=== PATIENT | female | born 1960 | race Caucasian/White ===

== ENCOUNTER 2017-09-13 14:59 | Inpatient (IN) | payer MEDICAID ==
[2017-09-13] VITALS (7 sets, daily range): BP systolic 106–154; BP diastolic 54–110
[~2017-09-13] VITALS: Ht 160 cm; Wt 127.6 kg
[~2017-09-13 14:59] MED LIST: ASPIRIN 81MG TA81 MG PO; ATORVASTATIN CA40 MG PO; DIGOX0.125 MG PO; ELIQUIS5 MG PO; METOPROLOL SUC100 M2 PO; TRAMADOL 50MG T50 MG PO; VERAPAMIL HCL180 M1 PO
--- OUTSIDE RECORDS SUMMARY | 2017-09-13 15:11 | External Medical Summary Rpt | CCD ---
Author Author , YUAN Organization [facility] Address Unknown Phone [email or web address] Care Team Providers Care Box Person Name Role Phone A Ilda CATHERINE MD [facility], Lucho Unavailable Unavailable Ilda CATHERINE MD PSC [employer] Unavailable Unavailable INC, [employer] Unavailable Unavailable INC, [employer] CHANCE, CHANCE Unavailable Unavailable LAUREN ORLIN, Unavailable Unavailable LAUREN ORLIN SANCHEZ ALL, SANCHEZ ALL Unavailable Unavailable PRABHAKAR BIRDIE, PRABHAKAR Unavailable Unavailable BIRDIE [facility] Unavailable Unavailable SERVICE, [facility] Unavailable Unavailable SERVICE, [facility] Unavailable Unavailable REHABILITATION, [facility] JOSE GUADALUPE CLEO, JOSE GUADALUPE Unavailable Unavailable CLEO ROLLY, ROLLY Unavailable Unavailable BROWNLEE NAN, BROWNLEE Unavailable Unavailable NAN LICHA, LICHA Unavailable Unavailable [facility] Un[facility] Un[facility], [facility] Unavailable Unavailable [facility], [facility], Unavailable Unavailable [facility] KOTTER MONA, KOTTER Unavailable Unavailable MONA [facility], [facility] Unavailable Unavailable [facility] JUNI JR, Unavailable Unavailable JUNI JR DAR KRI, DAR KRI Unavailable Unavailable MORENO SELAM, MORENO Unavailable Unavailable SELAM RUIZ JAM, Unavailable Unavailable RUIZ JAM CLEAN[employer]TY, Unavailable Unavailable [facility] REDD JUS, Unavailable Unavailable REDD JUS IVANA, IVANA Unavailable Unavailable NICKELS DENISE, NICKELS Unavailable Unavailable DENISE JENNIFER ORLIN, JENNIFER ORLIN Unavailable Unavailable [facility], Unavailable [facility]available [facility], [facility], Unavailable Unavailable [facility], Unavailable Unavailable [facility] ANGELIKA FERNANDO, ANGELIKA Unavailable Unavailable FERNANDO RAISLEY MARIAA, RAISLEY Unavailable Unavailable MARIAA FADI HÉCTOR, Unavailable Unavailable FADI ANAYA CHURCHILL ELODIA, CHURCHILL ELODIA Unavailable Unavailable KILO JACOBO, KILO Unavailable Unavailable JACOBO SOTINGEADWAIN HÉCTOR, Unavailable Unavailable SOTINGEANU HÉCTOR DELVIN MYRA, DELVIN Unavailable Unavailable MYRA STILES NAN, STILES Unavailable Unavailable NAN ELMO BERENICE, ELMO Unavailable Unavailable [facility] Unavailable Unavailable ASSIST, [facility], [facility]available Unavailable [facility] Unavailable [facility]available [facility] EUN NATHAN, EUN Unavailable Unavailable NATHAN [facility] Unavailable Unavailable [facility]ENC[facility], [facility] YOBANI BIRDIE, YOBANI Unavailable Unavailable BIRDIE JR BEAR CATHERINE, Unavailable Unavailable JR BEAR CATHERINEYA MAR, Unavailable Unavailable ZAVAZQUEZKAYA MAR Purpose Continuity of Care Document - 03-03-2015 through 2016 Problems Code Diagnosis DOS Provider Status [id number] UNILATERAL 04-20-2017 [facility] TIS RIGHT HIP [id number] UNS FX 04-20-2017 [place] [facility] SHAFT RT SERV [facility] SUBSQT ENC CLOS FX RTN [id number] UNS FX 04-20-2017 [facility] SUBSQT CLOS FX RTN HEAL I472 VENTRICULAR 04-09-2017 A Ilda CATHERINE MD PSC TACHYCARDIA I482 CHRONIC 04-09-2017 A Ilda CATHERINE ATRIAL PSC FIBRILLATIO N I4892 UNSPECIFIED 04-09-2017 A Ilda CATHERINE ATRIAL PSC FLUTTER I509 HEART 04-09-2017 A Ilda CATHERINE FAILURE PSC UNSPECIFIED E039 HYPOTHYROID 04-08-2017 [facility] UNSPECIFIED INC I110 HYPERTENSIV 04-08-2017 [facility], DISEASE PLLC WITH HEART FAILURE I5043 ACUTE ON 04-08-2017 [facility], COMB PLLC SYSTOLIC & DIASTOLIC CHF R0600 DYSPNEA 04-08-2017 [place] [facility] R0602 SHORTNESS 04-08-2017 [place] OF [facility]ATH [facility] J90 PLEURAL 10-27-2016 [place] [facility] EFFUSION SERV NOT FOUNDATION ELSEWHERE CLASSIFIED M151 HEBERDENS 10-27-2016 [place] [facility] NODES WITH SERV ARTHROPATHY FOUNDATION M159 POLYOSTEOAR 10-27-2016 [place] [facility] THRITIS SERV UNSPECIFIED FOUNDATION M6530 TRIGGER 10-27-2016 [place] [facility] FINGER SERV UNSPECIFIED FOUNDATION FINGER R768 OTH SPEC 10-27-2016 [place] [facility] ABNORMAL SERV IMMUNOLOGIC FOUNDATION AL FIND IN SERUM [id number] OTH FX 09-01-2016 [facility] FEMUR SUBSQT ENC CLOS FX RTN Z4789 ENCOUNTER 09-01-2016 [place] [facility] FOR OTHER SERV ORTHOPEDIC FOUNDATION AFTERCARE Z8781 PERSONAL 09-01-2016 [place] [facility] HISTORY OF SERV HEALED FOUNDATION TRAUMATIC FRACTURE M1711 UNILATERAL 08-16-2016 PAT[facility] PRIMARY AIDS INC OSTEOARTHRI TIS RIGHT KNEE [id number] OTH PHYSEAL 08-16-2016 PATIENT FX LOWER AIDS INC RT FEMUR INIT ENC CLOS FX [id number] OTH PHYSEAL 08-16-2016 PATIENT FX LOWER AIDS INC RT FEMUR SUBSQT FX RTN HEAL Z9181 HISTORY OF 08-16-2016 PATIENT FALLING AIDS INC M160 BILATERAL 07-28-2016 [facility] TIS OF HIP M170 BILATERAL 07-28-2016 [place] [facility] TIS OF KNEE J85178 PRIMARY 07-28-2016 [place] [facility] OSTEO[facility]TH[facility] SERV TIS RIGHT FOUNDATION HAND D56320 PRIMARY 07-28-2016 [place] [facility]STEO[facility] SERV TIS LEFT FOUNDATION HAND Z47370 PRIMARY 07-28-2016 [facility] TIS RIGHT ANKLE AND FOOT B77859 PRIMARY 07-28-2016 [facility] TIS LEFT ANKLE AND FOOT Z0000 ENCOUNTER 07-28-2016 [facility] MED EXAM W/O ABNORMAL FIND [id number] DSPL SC FX 07-21-2016 [facility] W[facility] IC EXT [facility]OSPITAL LOW RT FEM SUBS CLOS RTN [id number] UNS FX RT 07-21-2016 [place] [facility] FEMUR SERV SUBSQT ENC FOUNDATION CLOS FX RTN HEAL [id number] OTH [facility] 07-21-2016 [facility] COMP OTH PHYSICIANS BONE DEVC ASSIST IMPL GRAFT INIT ENC G65209R UNS 07-02-2016 [place] [facility] FRACTURE SERV SHAFT LT FOUNDATION TIBIA INIT ENC CLOS FX [id number] OTHER 07-02-2016 [facility] SHAFT LT TIBIA INIT ENC CLOS FX I340 NONRHEUMATI 05-26-2016 [place] [facility] C MITRAL SERV VALVE FOUNDATION INSUFFICIEN CY I361 NONRHEUMATI 05-26-2016 [place] [facility] C TRICUSPID SERV VALVE FOUNDATION INSUFFICIEN CY I4891 UNSPECIFIED 05-26-2016 [place] [facility] ATRIAL SERV FIBRILLATIO FOUNDATION N I517 CARDIOMEGAL 05-26-2016 [place] [facility] Y SERV FOUNDATION I5189 OTHER 05-26-2016 [place] [facility] ILL-DEFINED SERV HEART FOUNDATION DISEASES R001 BRADYCARDIA 05-26-2016 [facility] UNSPECIFIED FOUNDATION R9431 ABNORMAL 05-26-2016 [place] [facility] ELECTROCARD SERV IOGRAM F[facility] I5021 ACUTE 05-25-2016 [place] [facility] SYSTOLIC SERV CONGESTIVE FOUNDATION HEART FAILURE [id number] FX UNS PART 05-25-2016 [place] [facility] NECK UNS SERV FEMUR FOUNDATION INITIAL ENC CLOS FX S50015Z CONTUSION 05-23-2016 [place] [facility]ICAL OF LUNG SERV UNSPECIFIED FOUNDATION INITIAL ENCOUNTER J811 CHRONIC 05-22-2016 [place] [facility] PULMONARY SERV EDEMA FOUNDATION R0902 HYPOXEMIA 05-22-2016 [place] [facility] I288 OTHER 05-21-2016 [place] [facility] DISEASES OF SERV PULMONARY FOUNDATION VESSELS I348 OTHER 05-21-2016 [place] [facility] NONRHEUMATI SERV C MITRAL FOUNDATION VALVE DISORDERS I371 NONRHEUMATI 05-21-2016 [place] [facility] C PULMONARY SERV VALVE FOUNDATION INSUFFICIEN CY I501 LEFT 05-21-2016 [place] [facility] VENTRICULAR SERV FAILURE FOUNDATION UNSPECIFIED J984 OTHER 05-21-2016 [place] [facility] DISORDERS SERV OF LUNG FOUNDATION R600 LOCALIZED 05-21-2016 [place] [facility] EDEMA SERV FOUNDATION I480 PAROXYSMAL 05-20-2016 [place] [facility] ATRIAL SERV FIBRILLATIO FOUNDATION N I5020 UNSPECIFIED 05-20-2016 [place] [facility] SYSTOLIC SERV CONGESTIVE FOUNDATION HEART FAILURE J9601 ACUTE 05-20-2016 [place] [facility] RESPIRATORY SERV FAILURE FOUNDATION WITH HYPOXIA J9811 ATELECTASIS 05-20-2016 [place] [facility] R5381 OTHER 05-20-2016 [place] [facility] MALAISE SERV FOUNDATION R846 ABN 05-20-2016 [facility] FIND IN HOSPI SPEC RESP ORGN & THOR R918 OTHER 05-20-2016 [place] [facility] NONSPECIFIC SERV ABNORMAL FOUNDATION FINDING OF LUNG FIELD M6281 MUSCLE 05-14-2016 [facility] GENERALIZED AGENCY R2689 OTHER 05-14-2016 [facility] ABNORMALITI HEALTH ES OF GAIT AGENCY AND MOBILITY H84014B UNSPECIFIED 05-14-2016 [facility] FRACTURE HEALTH LOWER END AGENCY RT FEMUR SEQUELA D649 ANEMIA 03-15-2016 [place] [facility] UNSPECIFIED SERV FOUNDATION I10 ESSENTIAL 03-15-2016 [place] [facility] PRIMARY SERV HYPERTENSIO FOUNDATION N Z61762 HEMIPLEGIA 03-15-2016 [place] [facility] FLW SERV CEREBRAL FOUNDATION INFARCT AFF LT NON-DOM R252 CRAMP AND 03-15-2016 [place] [facility] SPASM SERV FOUNDATION A499 BACTERIAL 03-13-2016 [place] [facility] INFECTION SERV UNSPECIFIED FOUNDATION G8918 OTHER ACUTE 03-13-2016 [place] [facility] SERV POSTPROCEDU FOUNDATION RAL PAIN N390 URINARY 03-13-2016 [place] [facility] TRACT SERV INFECTION FOUNDATION SITE NOT SPECIFIED E6601 MORBID 03-05-2016 [facility] OBES[facility] DUE REHABILITAT TO EXCESS ION CALORIES G479 SLEEP 03-05-2016 [facility] UNSPECIFIED REHABILITAT ION K5900 CONSTIPATIO 03-05-2016 [facility] [place] UNSPECIFIED REHABILITAT ION Z6842 BODY MASS 03-05-2016 [facility] INDEX BMI GRANTS 45.0-49.9 REHABILITAT ADULT ION M1990 UNSPECIFIED 03-02-2016 [facility] OSTEOARTHRI TIS UNSPECIFIED SITE [id number] DSPL SC FX 03-02-2016 [place] [facility] WITH IC EXT SERVICES LOW RT FEMUR INIT CLOS FX Z9889 OTHER 03-02-2016 [place] [facility] SPECIFIED SERV POSTPROCEDU FOUNDATION RAL STATES M179 OSTEOARTHRI 03-01-2016 [facility] UNSPECIFIED M2500 HEMARTHROSI 03-01-2016 [place] [facility] S SERV UNSPECIFIED FOUNDATION JOINT Q43785 PAIN IN 03-01-2016 [place] [facility] G47407 OSTEOPHYTE 03-01-2016 [place] [facility] RIGHT HIP SERV FOUNDATION H99244 OSTEOPHYTE 03-01-2016 [place] [facility] RIGHT KNEE SERV FOUNDATION [id number] UNS FX 03-01-2016 [place] [facility] SHAFT RT SERV FEM[facility] FOUNDATION INITIAL ENC CLOS FRACTURE G52340I DSPL TRNS 03-01-2016 [facility] SHAFT RT TECHNOLOGIE FEMUR S INC INITIAL ENC CLOS FX [id number] UNS FX 03-01-2016 [place] [facility] LOWER RT SERV F[facility] FOUNDATION INITIAL ENC CLOS FRACTURE L06909U OTH FX 03-01-2016 [facility] LOWER RT PHYSICIANS, FEMUR PLLC INITIAL ENC CLOS FX [id number] UNS 03-01-2016 [place] [facility] FRACTURE SERV UNS FEMUR FOUNDATION INITIAL ENC CLOS FX [id number] OTHER FALL 03-01-2016 [place] [facility] ON SAME SERV LEVEL FOUNDATION INITIAL ENCOUNTER R23BNXP UNSPECIFIED 03-01-2016 [facility] INITIAL SERVICE ENCOUNTER A06075 ENCOUNTER 03-01-2016 [place] [facility] FOR OTHER SERV PREPROCEDUR FOUNDATION AL EXAMINATION Z4689 ENCOUNTER 03-01-2016 [place] [facility] FITTING & SERV ADJUSTMENT FOUNDATION OT SPEC DEVICES 4019 UNSPECIFIED 03-03-2015 [facility] [place] [address] UNSPECIFIED 03-03-2015 [facility] CARIES INC 5225 PERIAPICAL 03-03-2015 [facility] WITHOUT INC SINUS Medications Na ND Rx Da Fi Fi Am Da Di Ph RX Ph St me C No te ll ll ou ys ag ar # ys at rm s nt no ma ic us Or Da si cy ia de te s n re d EL 00 09 10 30 30 00 RI Ac IQ 00 -2 -2 .0 00 TE ti UI 30 5- 0- 00 01 ve S 89 20 20 20 AI 5 42 17 17 08 D MG 1 50 PH AR TA MA BL CY ET #3 93 8 VE 68 08 09 60 30 00 RI Ac RA 46 -2 -2 .0 00 TE ti PA 20 8- 2- 00 01 ve OR 29 20 20 19 AI L 30 17 17 36 D ER 1 22 PH AR 18 MA 0 CY MG #3 TA 93 BL 8 ET DI 00 08 09 30 30 00 RI Ac GI 37 -2 -2 .0 00 TE ti TE 86 8- 2- 00 01 ve K 15 20 20 19 AI 12 50 17 17 35 D 5 1 31 PH MC AR G MA TA CY BL ET #3 93 8 ME 62 08 09 30 30 00 RI Ac TO 03 -2 -2 .0 00 TE ti TX 70 8- 2- 00 01 ve OL 83 20 20 17 AI OL 20 17 17 25 D 1 05 PH FORD AR CC MA CY ER #3 10 93 0 8 MG TA B EL 00 08 09 30 30 00 RI Ac IQ 00 -2 -1 .0 00 TE ti UI 30 1- 5- 00 01 ve S 89 20 20 17 AI 5 42 17 17 25 D MG 1 06 PH AR TA MA BL CY ET #3 93 8 EL 00 07 08 30 30 00 RI Ac IQ 00 -2 -1 .0 00 TE ti UI 30 2- 8- 00 01 ve S 89 20 20 17 AI 5 42 17 17 25 D MG 1 06 PH AR TA MA BL CY ET #3 93 8 ME 62 07 08 30 30 00 RI Ac TO 03 -2 -1 .0 00 TE ti TX 70 8- 8- 00 01 ve OL 83 20 20 17 AI OL 20 17 17 25 D 1 05 PH FORD AR CC MA CY ER #3 10 93 0 8 MG TA B DI 00 07 08 30 30 00 RI Ac GI 37 -2 -1 .0 00 TE ti TE 86 8- 8- 00 01 ve K 15 20 20 19 AI 12 50 17 17 35 D 5 1 31 PH MC AR G MA TA CY BL ET #3 93 8 VE 68 07 08 60 30 00 RI Ac RA 46 -2 -1 .0 00 TE ti PA 20 8- 8- 00 01 ve OR 29 20 20 19 AI L 30 17 17 36 D ER 1 22 PH AR 18 MA 0 CY MG #3 TA 93 BL 8 ET DI 00 06 07 30 30 00 RI Ac GI 37 -2 -2 .0 00 TE ti TE 86 8- 1- 00 01 ve K 15 20 20 18 AI 12 50 17 17 57 D 5 1 55 PH MC AR G MA TA CY BL ET #3 93 8 ME 62 06 07 30 30 00 RI Ac TO 03 -2 -2 .0 00 TE ti TX 70 8- 1- 00 01 ve OL 83 20 20 17 AI OL 20 17 17 25 D 1 05 PH FORD AR CC MA CY ER #3 10 93 0 8 MG TA B VE 68 06 07 60 30 00 RI Ac RA 46 -2 -2 .0 00 TE ti PA 20 8- 1- 00 01 ve OR 29 20 20 18 AI L 30 17 17 99 D ER 1 39 PH AR 18 MA 0 CY MG #3 TA 93 BL 8 ET EL 00 06 07 30 30 00 RI Ac IQ 00 -2 -1 .0 00 TE ti UI 30 1- 4- 00 01 ve S 89 20 20 17 AI 5 42 17 17 25 D MG 1 06 PH AR TA MA BL CY ET #3 93 8 VE 68 05 06 60 30 00 RI Ac RA 46 -2 -2 .0 00 TE ti PA 20 9- 3- 00 01 ve OR 29 20 20 18 AI L 30 17 17 59 D ER 1 30 PH AR 18 MA 0 CY MG #3 TA 93 BL 8 ET DI 00 05 06 30 30 00 RI Ac GI 37 -2 -2 .0 00 TE ti TE 86 9- 3- 00 01 ve K 15 20 20 18 AI 12 50 17 17 57 D 5 1 55 PH MC AR G MA TA CY BL ET #3 93 8 ME 62 02 03 30 30 00 RI Ac TO 03 -2 -1 .0 00 TE ti TX 70 3- 7- 00 01 ve OL 83 20 20 17 AI OL 20 17 17 25 D 1 05 PH FORD AR CC MA CY ER #3 10 93 0 8 MG TA B EL 00 02 03 30 30 00 RI Ac IQ 00 -2 -1 .0 00 TE ti UI 30 3- 7- 00 01 ve S 89 20 20 17 AI 5 42 17 17 25 D MG 1 06 PH AR TA MA BL CY ET #3 93 8 AT 60 02 03 30 30 00 RI Ac OR 50 -1 -1 .0 00 TE ti VA 52 2- 0- [address] 58 20 20 14 AI AT 00 17 17 41 D IN 9 19 PH AR 40 MA CY MG #3 TA 93 BL 8 ET AT 60 01 02 30 30 00 RI Ac OR 50 -1 -0 .0 00 TE ti VA 52 2- 3- [address] 58 20 20 14 AI AT 00 17 17 41 D IN 9 19 PH AR 40 MA CY MG #3 TA 93 BL 8 ET ME 62 01 02 30 30 00 RI Ac TO 03 -1 -0 .0 00 TE ti TX 70 2- 3- 00 01 ve OL 83 20 20 14 AI OL 20 17 17 87 D 1 69 PH FORD AR CC MA CY ER #3 10 93 0 8 MG TA B EL 00 01 02 30 30 00 RI Ac IQ 00 -1 -0 .0 00 TE ti UI 30 3- 3- 00 01 ve S 89 20 20 14 AI 5 42 17 17 87 D MG 1 66 PH AR TA MA BL CY ET #3 93 8 ME 62 12 01 30 30 00 RI Ac TO 03 -1 -0 .0 00 TE ti TX 70 3- 9- 00 01 ve OL 83 20 20 14 AI OL 20 16 17 87 D 1 69 PH FORD AR CC MA CY ER #3 10 93 0 8 MG TA B AT 60 12 01 30 30 00 RI Ac OR 50 -1 -0 .0 00 TE ti VA 52 3- 9- [address] 58 20 20 14 AI AT 00 16 17 41 D IN 9 19 PH AR 40 MA CY MG #3 TA 93 BL 8 ET EL 00 12 01 30 30 00 RI Ac IQ 00 -1 -0 .0 00 TE ti UI 30 3- 9- 00 01 ve S 89 20 20 14 AI 5 42 16 17 87 D MG 1 66 PH AR TA MA BL CY ET #3 93 8 Results Labs Lab Lab Date Result Refere Interp Status Commen Order Detail nces retati t Range on Urinalysis dipstick W Reflex Microscopic panel in Urine (04-08-2017 20:30) Bacteri 1+ O complet a 017 ed [Presen 20:30 ce] in Urine sedimen t by Light microsc opy Erythro --2 5-10 0 complet cytes 017 ed [Presen 20:30 ce] in Urine sedimen t by Light microsc opy Epithel --2 3-5 0#/hp complet ial 017 f - ed cells.s 20:30 5#/hp quamous f [Presen ce] in Urine sedimen t by Microsc opy high power field Trichom 04-08-2 1+ NONE complet onas sp 017 ed 20:30 [Presen ce] in Urine by Light microsc opy Leukocy 04-08-2 3-5 O complet jayesh 017 wbc/hpf ed [#/volu 20:30 me] in Urine Urinalysis dipstick W Reflex Microscopic panel in Urine (04-08-2017 20:30) Appeara 04-08-2 CLEAR CLEAR complet nce of 017 ed Urine 20:30 Bilirub 04-08-2 NEGATIV NEG complet in 017 E ed [Presen 20:30 ce] in Urine by Test strip Erythro 04-08-2 NEGATIV NEG complet cytes 017 E ed [Presen 20:30 ce] in Urine Color 04-08-2 YELLOW YELLOW complet of 017 ed Urine 20:30 Ketones 04-08-2 NEGATIV NEG complet 017 E ed [Presen 20:30 ce] in Urine by Automat ed test strip Mucus 04-08-2 2+ NEG Abnorma complet [Presen 017 l ed ce] in 20:30 Urine sedimen t by Light microsc opy Nitrite 04-08-2 NEGATIV NEG complet 017 E ed [Presen 20:30 ce] in Urine by Test strip Urobili 04-08-2 0.2 NEG complet nogen 017 ed [Presen 20:30 ce] in Urine by Test strip Procedures Procedure DOS Code Location Performer Comment RADIOLOGI 52603 LUZ Gonsales 7 MEDICAL EXAMINATI SERV ON FEMUR FOUNDATIO MINIMUM 2 N VIEWS SBSQ 90345 [facility] DORENE HOWARD CARE/DAY PSC 25 MINUTES INITIAL 08785 [facility] 7 DORENE HOWARD CARE/DAY PSC 70 MINUTES RADIOLOGI 71825 [place] ROLLY [facility] 7 MEDICAL EXAMINATI IMAGING ON CHEST ASS S[place] FRONTAL RADIOLOGI 32311 [facility] 6 Y Y EXAMINATI [facility] HOSPITAL ON FEMUR MINIMUM 2 VIEWS ELEVATING K0195 PATIENT PATIENT LEGREST 6 AIDS INC AIDS INC PAIR HIGH K0004 PATIENT PATIENT STRENGTH 6 AIDS INC AIDS INC LIGHTWE[place] HT WHEELCHAI R HEPATITIS 94058 [facility] C 6 Y Y ANTIBODY HOSPITAL HOSPITAL COLLECTIO 35445 [facility] N VENOUS 6 Y Y BLOOD [facility] VENIPUNCT URE RADEX 81157 [facility] HAND 2 6 Y Y VIEWS [facility] HEPATITIS 02618 [facility] B CORE 6 Y Y ANTIBODY [facility] [place] [address] [facility] HEPATITIS 6 Y Y B [facility] SURFACE ANTIGEN RADEX 02880 [facility] FOOT 6 Y Y COMPLETE [facility] MINIMUM 3 VIEWS RADEX 84549 [place] DELVIN WRIST 2 6 MEDICAL MYRA VIEWS SERV FOUNDATIO N ANTINUCLE 17548 [facility] 6 Y Y ANTIBODIE [facility] RADIOLOGI 82947 [place]TG[place] C 6 MEDICAL Y JUS EXAMINATI SERV ON FEMUR FOUNDATIO MINIMUM 2 N VIEWS ELEVATING K0195 PATIENT PATIENT LEGREST 6 AIDS INC AIDS INC PAIR HIGH K0004 PATIENT PATIENT STRENGTH 6 AIDS INC AIDS INC LIGHTWEIG HT WHEELCHAI R DUP-SCAN 75132 [place] LAUREN XTR VEINS 6 MEDICAL ORLIN COMPLETE SERV FOUNDATIO BILATERAL N STUDY RADIOLOGI 77782 [facility] EXAM 6 Y Y CHEST 2 HOSPITAL HOSPITAL VIEWS FRONTAL&L ATERAL LIGHTWEIG K0003 PATIENT PATIENT HT 6 AIDS INC AIDS INC WHEELCHAI R SERVICE G0151 [facility] HOME HOME THERAP [facility] HEALTH HOME AGENCY AGENCY HLTH/HOSP ICE EA 15 MIN SERVICE G0151 [facility] HEALTH HOME AGENCY AGENCY HLTH/HOSP ICE EA 15 MIN DIRECT G0299 [facility] RN 6 HOME HOME HOME HEALTH HEALTH HEALTH/HO AGENCY AGENCY SPICE SET EA 15 MIN SERVICE G0151 [facility] HE[facility] HOME AGENCY AGENCY HLTH/HOSP ICE EA 15 MIN SERVICE G0151 [facility] HOME [facility]AP [facility] HEALTH HOME AGENCY AGENCY HLTH/HOSP ICE EA 15 MIN SERVICE G0151 [facility] HOME [facility] HEALTH HOME AGENCY AGENCY HLTH/HOSP ICE EA 15 MIN DIRECT G0299 [facility] RN 6 HOME HOME HOME HEALTH HEALTH HEALTH/HO AGENCY AGENCY SPICE SET EA 15 MIN CARDIOVER 21966 [facility] AMIRA ANNA 6 MEDICAL [facility] ELECTIVE SERV ARRHYTHMI FOUNDATIO A N EXTERNAL ECHO 55901 [facility] AMIRA TRANSESOP 6 MEDICAL [facility] HAG R-T SERV 2D W/PRB FOUNDATIO IMG N ACQUISJ I&R DOP 97354 [place] AMIRA ECHOCARD 6 [facility] COLOR SERV FLOW FOUNDATIO VELOCITY N MAPPING DOPPLER 46506 [facility] ECHOCARD 6 MEDICAL [facility] PULSE SERV WAVE FOUNDATIO W/SPECTRA N L DISPLAY ECG 20763 [facility] ROUTINE 6 MEDICAL NAN ECG SERV W/LEAST FOUNDATIO 12 LDS N I&R ONLY SBSQ 64804 [place] [address] MEDICAL JACOBO CARE/DAY SERV [address] THORAX 24436 [place] PRABHAKAR W/O 6 MEDICAL [place] CONTRAST SERV MATERIAL FOUNDATIO N INITIAL 84559 [facility] INPATIENT 6 MEDICAL HORACIO CONSULT SERV NEW/ESTAB FOUNDATIO PT 55 N MIN SBSQ 64835 [place] [address] MEDICAL MONA CARE/DAY SERV 25 FOUNDATIO MINUTES N SBSQ 09819 [place] [address] MEDICAL SELAM CARE/DAY SERV 25 FOUNDATIO MINUTES N RADIOLOGI 14978 [place] [address] MEDICAL BIRDIE EXAMINATI SERV ON CHEST FOUNDATIO SING[place] FRONTAL RADIOLOGI 32038 [place] [address] MEDICAL BIRDIE EXAMINATI SERV ON CHEST FOUNDATIO SINGLE N VIEW FRONTAL SBSQ 55853 [facility] 6 MEDICAL MONA CARE/DAY SERV 25 FOUNDATIO MINUTES N ECHO 66085 LUZ CHUR[facility]ILL ELODIA TTHRC R-T 6 MEDICAL 2D SERV W/WOM-MOD FOUNDATIO E COMPL N SPEC&COLR D CYTP 30142 AYSHA APONTE SLCTV 6 Y OF HÉCTOR CELL [facility] INTERP[place] XCP[place] C/[place] L[place] [address] AYSHA APONTE SURG 6 Y OF HÉCTOR PATHOLOGY [place] [facility] [address] [place] NICKEL[place] ANGIOGRAP 6 MEDICAL DENISE HY CHEST SERV W/CONTRAS FOUNDATIO T/NONCONT N RAST ECG 41409 [place] ERINN CHI ROUTINE 6 MEDICAL ECG SERV W/LEAST FOUNDATIO 12 LDS N I&R ONLY RADIOLOGI 41137 [place] ZAGUROVSK C 6 MEDICAL AYA MAR EXAMINATI SERV ON CHEST FOUNDATIO SINGLE N [place]IEW FRONTAL RADIOLOGI 98362 [place] NICKELS C EXAM 6 MEDICAL DENISE CHEST 2 SERV VIEWS FOUNDATIO FRONTAL&L N ATERAL INITIAL 55026 [facility] 6 MEDICAL SELAM CARE/DAY SERV 50 FOUNDATIO MINUTES N SERVICE G0151 [facility] HOME HOME THERAP HEALTH HEALTH HOME AGENCY AGENCY HLTH/HOSP ICE EA 15 MIN LIGHTWEIG K0003 PATIENT PATIENT HT 6 AIDS INC AIDS INC WHEELCHAI R DIRECT G0299 [facility] RN 6 HOME HOME HOME HEALTH HEALTH HEALTH/HO AGENCY AGENCY SPICE SET EA 15 MIN SERVICE G0151 [facility] 6 HOME HOME [facility]ER[facility] HEALTH HOME AGENCY AGENCY HLTH/HOSP ICE EA 15 MIN SERVICE G0151 [facility] 6 HOME HOME THERAP HEALTH HEALTH HOME AGENCY AGENCY HLTH/HOSP ICE EA 15 MIN SERVICE G0151 [facility] 6 HOME HOME THERAP HEALTH HEALTH HOME AGENCY AGENCY HLTH/HOSP ICE EA 15 MIN SERVICE G0151 [facility] 6 HOME HOME THERAP HEALTH HEALTH HOME AGENCY AGENCY HLTH/HOSP ICE EA 15 MIN SERVICE G0151 [facility] 6 HOME HOME THERAP HEALTH HEALTH HOME AGENCY AGENCY HLTH/HOSP ICE EA 15 MIN SERVICE G0151 [facility] 6 HOME HOME THERAP HEALTH HEALTH HOME AGENCY AGENCY HLTH/HOSP ICE EA 15 MIN SERVICE G0151 [facility] HOME AGENCY AGENCY HLTH/HOSP ICE EA 15 MIN SERVICE G0151 [facility] HOME AGENCY AGENCY HLTH/HOSP ICE EA 15 MIN RADIOLOGI [id number] [place] JULIANNA C 6 MEDICAL Y JUS EXAMINATI SERV ON FEMUR FOUNDATIO MINIMUM 2 N VIEWS SERVICE G0151 [facility] HOME AGENCY AGENCY HLTH/HOSP ICE EA 15 MIN [place] K0003 PATIENT PATIENT HT 6 AIDS INC AIDS INC WHEELCHAI R SERVICE G0151 [facility] HOME AGENCY AGENCY HLTH/HOSP ICE EA 15 MIN SERV[facility] G0151 [facility] HOME AGENCY AGENCY HLTH/HOSP ICE EA 15 MIN SERVICE G0151 [facility] HOME AGENCY AGENCY HLTH/HOSP ICE EA 15 MIN SERVICE G0151 [facility] HOME AGENCY AGENCY HLTH/HOSP ICE EA 15 MIN SERVICE G0151 [facility] HOME AGENCY AGENCY HLTH/HOSP ICE EA 15 MIN SERVICE G0151 [facility] HOME AGENCY AGENCY HLTH/HOSP ICE EA 15 MIN DIRECT G0299 [facility] RN 6 HOME HOME [facility] HE[facility] HEALTH/HO AGENCY AGENCY SPICE SET EA 15 MIN HOSP[facility] [id number] [place] STILES DISCHARGE 6 MEDICAL NAN DAY SERV MANAGEMEN FOUNDATIO T 30 N MIN/< WALKER [id number] PATIENT PATIENT FOLDING 6 AIDS INC AIDS INC WHEELED ADJUSTABL E/FIXED HEIGHT GENERAL [id number] PATIENT PATIENT WHLCHAIR 6 AIDS INC AIDS INC SEAT CUSHN WIDTH < 22 IN DEPTH [place] K0003 PATIENT PATIENT HT 6 AIDS INC AIDS INC AMMY Urban WHLCHAIR [id number] PATIENT PATIENT ACSS PSTN 6 AIDS INC AIDS INC BELT/SFTY BELT/PELV STRAP EA SBSQ [id number] [place] [address] MEDICAL NAN CARE/DAY SERV 25 FOUNDATIO MINUTES N SBSQ [id number] [place] [address] MEDICAL NAN CARE/DAY SERV 25 FOUNDATIO MINUTES N SBSQ [id number] [place] [address] MEDICAL NAN CARE/DAY SERV 25 FOUNDATIO MINUTES N SBSQ [id number] [place] [address] MEDICAL NAN CARE/DAY SERV 25 FOUNDATIO MINUTES N SBSQ [id number] [place] [address] MEDICAL NAN CARE/DAY SERV 25 FOUNDATIO MINUTES N SBSQ [id number] [place] [address] MEDICAL NAN CARE/DAY SERV 25 FOUNDATIO MINUTES N SBSQ [id number] [place] [address] MEDICAL NAN CARE/DAY SERV 25 FOUNDATIO MINUTES N SBSQ 19690 [place] [address] MEDICAL PETTY CARE/DAY SERV 25 FOUNDATIO MINUTES N SBSQ 68138 [place] [address] MEDICAL PETTY CARE/DAY SERV 25 FOUNDATIO MINUTES N INITIAL [address]5639 [place] [address] MEDICAL PETTY CARE/DAY SERV 50 [place] [address] [place] CATHERINE, FEMORAL 6 MEDICAL JR RAY SUPRACOND SERV YLAR FOUNDATIO FRACTURE N W/XTN REPOSITIO [id number] UNIVERS UNIVERS N RT LOW 6 Y Y [facility] INTRAMED IF DEVICE OPEN ANESTHESI 53259 [place] JOSE GUADALUPE A OPEN 6 MEDICAL CLEO PROCEDURE SERVICES S LOWER 1/3 [facility] [address] [place] JENNIFER Gonsales 6 MEDICAL EXAMINATI SERV ON FEMUR FOUNDATIO MINIMUM 2 N VIEWS RADIOLOGI 57523 LUZ Gonsales 6 MEDICAL BERENICE EXAMINATI SERV ON FEMUR FOUNDATIO MINIMUM 2 N VIEWS INJECTION [id number] JOSE G ARAIZA 6 [facility] ONDANSETR INC INC ON HCL PER 1 MG ECG 71679 LUZ ERINN CHI ROUTINE 6 MEDICAL ECG SERV W/LEAST FOUNDATIO 12 LDS N I&R ONLY THERAPEUT 49362 JOSE G ARAIZA IC 6 [facility] INJECTION INC INC IV PUSH EACH NEW DRUG RADIOLOGI 43022 [place] SANCHEZ ALL C 6 MEDICAL EXAMINATI IMAGING ON KNEE ASS 1/2 VIEWS RADIOLOGI 36996 LUZ ELMO Gonsales 6 MEDICAL BERENICE EXAMINATI SERV ON KNEE [address] LOWER 01871 LUZ HAQ EXTREMITY 6 MEDICAL NATHAN W/O SERV CONTRAST FOUNDATIO MATERIAL N RADIOLOGI 51158 [place] SANCHEZ ALL C 6 MEDICAL EXAMINATI IMAGING ON CHEST ASS SINGLE VIEW FRONTAL THER 38584 JOSE G ARAIZA PROPH/DX 6 [facility] NJX IV INC INC PUSH SINGLE/1S T SBST/DRUG KNEE L1830 [facility] 6 TECHNOLOG TECHNOLOG IMMOBLIZE IES INC IES INC R CANVAS LONGTUDNL PREFAB GROUND A0425 [facility] PER SERVICE SERVICE STATUTE MILE AMBULANCE A0429 [facility] 6 AMBULANCE AMBULANCE BLS SERVICE SERVICE EMERGENCY TRANSPORT RADEX HIP 85729 LUZ ELMO 6 MEDICAL BERENICE UNILATERA SERV L WITH FOUNDATIO PELVIS N 2-3 VIEWS RADIOLOGI 75557 LUZ ELMO Gonsales 6 MEDICAL BERENICE EXAMINATI SERV ON TIBIA FOUNDATIO & FIBULA N 2 VIEWS THERAPEUT 78620 JOSE G ARAIZA IC 5 [facility] PROPHYLAC INC INC TIC/DX INJECTION SUBQ/IM Encounters Encounter Start End Date Code Location Performer Type Date OFFICE 61197 [facility] 7 7 [facility] T VISIT 5 E MINUTES [facility] - 7 [facility] OUTPATIEN E T [facility] - 7 7 [facility] INPATIENT INC EMERGENCY 78948 [facility] DEPT 7 7 PHYSICIAN VISIT S, PLLC HIGH SEVERITY& THREAT FUNCJ OFFICE 83056 [place] [facility] MEDICAL JR T VISIT SERV 25 FOUNDATIO MINUTES N OFFICE 35050 [facility] 6 6 Y T VISIT 5 HOSPITAL MINUTES OFFICE 77880 [place] [facility] MEDICAL JR RAY T VISIT SERV 15 FOUNDATIO MINUTES N HOSPITAL UNIVERSIT - 6 6 Y [facility] T OFFICE 09485 [place] DAR KRI CONSULTAT 6 6 MEDICAL ION SERV NEW/ESTAB FOUNDATIO PATIENT N 40 MIN [facility] - 6 6 Y [facility] 6 6 Y [facility] T OFFICE 23726 [facility] 6 6 [place] MRAIAA T VISIT PHYSICIAN 25 S ASSIST MINUTES OFFICE 45182 [facility] 6 6 Y T VISIT 5 [facility] UNIVERSIT - 6 6 Y [facility] T OFFICE 12731 [place] RUIZ [facility] 6 6 MEDICAL JAM T VISIT SERV 25 FOUNDATIO MINUTES N [facility] 6 6 Y [facility] 70156 [facility] T VISIT REHABILIT 10 ATION MINUTES OFFICE 63532 [place] [facility] 6 6 MEDICAL NAN T VISIT SERV 25 FOUNDATIO MINUTES N EMERGENCY 95461 [place] ANGELIK[place] DEPT 6 6 MEDICAL FERNANDO VISIT SERV HIGH FOUNDATIO SEVERITY& N THREAT FUN HOME [facility], 6 6 HOME INPATIENT HEALTH AGENCY [facility] UNIVERSIT - 6 6 Y [facility] T OFFICE 69725 [facility] 6 6 Y T [facility]ISIT 5 [facility], 6 6 HOME INPATIENT HEALTH AGENCY HOME [facility], 6 6 HOME INPATIENT HEALTH [facility] UNIVERSIT - 6 6 Y [facility] T OFFICE 92303 [facility] 6 6 Y T VISIT 5 [facility] - 6 6 [facility] EMERGENCY 41966 JOSE G DEPT 6 6 [facility] VISIT INC HIGH SEVERITY& THREAT [facility] UNIVERSIT - 6 6 Y INPATIENT HOSPITAL EMERGENCY 10696 ZOE SEVILLA 6 6 PHYSICIAN U HÉCTOR MOORE S, [facility] T VISIT MODERATE SEVERITY EMERGENCY 39974 JOSE G 5 5 [facility] DEPARTMEN INC T VISIT LOW/MODER SEVERITY HOSPITAL JOSE G - 5 5 [facility] OUTPATIEN INC T
--- OUTSIDE RECORDS SUMMARY | 2017-09-13 15:11 | External Medical Summary Rpt | CCD ---
Author Author , YUAN Organization [facility] Address Unknown Phone [email or web address] Care Team Providers Care Dish Stacker Name Role Phone A Ilda CATHERINE MD P[facility], Lucho Unavailable Unavailable Ilda CATHERINE MD PSC [employer] Unavailable Unavailable INC, [employer] Unavailable Unavailable INC, [employer] CHANCE, CHANCE Unavailable Unavailable LAUREN ORLIN, Unavailable Unavailable LAUREN ORLIN SANCHEZ ALL, SANCHEZ ALL Unavailable Unavailable PRABHAKAR BIRDIE, PRABHAKAR Unavailable Unavailable BIRDIE [facility] Unavailable Unavailable SERVICE, [facility] Unavailable Unavailable SERVICE[facility] Unavailable Unavailable REHABILITATION, [facility] JOSE GUADALUPE CLEO, JOSE GUADALUPE Unavailable Unavailable CLEO ROLLY, ROLLY Unavailable Unavailable BROWNLEE NAN, BROWNLEE Unavailable Unavailable NAN LICHA, LICHA Unavailable Unavailable [facility], [facility] Unavailable Unavailable IMAGING [facility], [facility], Unavailable Unavailable [facility] KOTTER MONA, KOTTER Unavailable Unavailable MONA [facility], [facility] Unavailable Unavailable [facility], Un[facility]available [facility] JUNI JR, Unavailable Unavailable JUNI [...] [facility] Unavailable [facility] Unavailable Unavailable ASSIST, [facility], [facility]available Unavailable [facility] Unavailable Unavailable [facility], [facility] EUN NATHAN, EUN Unavailable Unavailable NATHAN [facility] Unavailable Unavailable AGENCY, [facility] YOBANI BIRDIE, YOBANI Unavailable Unavailable BIRDIE JR BEAR CATHERINE, Unavailable Unavailable JR BEAR CATHERINEYA MAR, Unavailable Unavailable ZAVAZQUEZKAYA MAR Purpose Continuity of Care Document - 03-03-2015 through 2016 Problems Code Diagnosis DOS Provider Status [id number] UNILATERAL 04-20-2017 [place] [facility] TIS RIGHT HIP [id number] UNS FX 04-20-2017 [place] [facility] SHAFT [place] [facility] SUBSQT ENC CLOS FX RTN [id number] UNS FX 04-20-2017 [facility] SUBSQT CLOS FX RTN HEAL I472 VENTRICULAR 04-09-2017 A Ilda CATHERINE MD PSC TACHYCARDIA I482 CHRONIC 04-09-2017 A Ilda CATHERINE ATRIAL PSC FIBRILLATIO N I4892 UNSPECIFIED 04-09-2017 A Ilda CATHERINE ATRIAL PSC FLUTTER I509 HEART 04-09-2017 A Ilda CATHERINE FAILURE PSC UNSPECIFIED E039 HYPOTHYROID 04-08-2017 [facility] UNSPECIFIED INC I110 HYPERTENSIV 04-08-2017 [facility], DISEASE PLLC WITH HEART FAILURE I5043 ACUTE ON 04-08-2017 [facility]RON[facility], COMB PLLC SYSTOLIC & DIASTOLIC CHF R0600 DYSPNEA 04-08-2017 [facility] R0602 SHORTNESS 04-08-2017 [facility] J90 PLEURAL 10-27-2016 [place] [facility] EFFUSION SERV NOT FOUNDATION ELSEWHERE CLASSIFIED M151 HEBERDENS 10-27-2016 [place] [facility] NODES WITH SERV ARTHROPATHY FOUNDATION M159 POLYOSTEOAR 10-27-2016 [place] [facility] THRITIS SERV UNSPECIFIED FOUNDATION M6530 TRIGGER 10-27-2016 [place] [facility] FINGER SERV UNSPECIFIED FOUNDATION FINGER R768 OTH SPEC 10-27-2016 [place] [facility] ABNORMAL SERV IMMUNOLOGIC FOUNDATION AL FIND IN SERUM [id number] OTH FX 09-01-2016 [facility] FEMUR SUBSQT ENC CLOS FX RTN Z4789 ENCOUNTER 09-01-2016 [place] [facility] FOR OTHER SERV ORTHOPEDIC F[facility]ATION AFTERCARE Z8781 PERSONAL 09-01-2016 [place] [facility] HISTORY OF SERV HEALED FOUNDATION TRAUMATIC FRACTURE M1711 UNILATERAL 08-16-2016 PATIENT PRIMARY AIDS INC OSTEOARTHRI TIS RIGHT KNEE [id number] OTH PHYSEAL 08-16-2016 PATIENT FX LOWER AIDS INC RT FEMUR INIT ENC CLOS FX [id number] OTH PHYSEAL 08-16-2016 PATIENT FX LOWER AIDS INC RT FEMUR SUBSQT FX RTN HEAL Z9181 HISTORY OF 08-16-2016 PATIENT FALLING AIDS INC M160 BILATERAL 07-28-2016 [place] [facility] TIS OF HIP M170 BILATERAL 07-28-2016 [place] [facility] TIS OF KNEE S78013 PRIMARY 07-28-2016 [place] [facility] SERV TIS RIGHT FOUNDATION HAND B18575 PRIMARY 07-28-2016 [place] [facility] SERV TIS LEFT FOUNDATION HAND G95473 PRIMARY 07-28-2016 [facility] TIS RIGHT ANKLE AND FOOT O25035 PRIMARY 07-28-2016 [facility] TIS LEFT ANKLE AND FOOT Z0000 ENCOUNTER 07-28-2016 [facility] MED EXAM W/O ABNORMAL FIND U05640L DSPL SC FX 07-21-2016 [facility] IC EXT HOSPITAL LOW RT FEM SUBS CLOS RTN G5730IP UNS FX RT 07-21-2016 [place] [facility] SERV SUBSQT ENC FOUNDATION CLOS FX RTN HEAL [id number] OTH [facility] 07-21-2016 [facility] COMP OTH PHYSICIANS BONE DEVC ASSIST IMPL GRAFT INIT ENC D17082F UNS 07-02-2016 [place] [facility] FRACTURE SERV SHAFT LT FOUNDATION TIBIA INIT ENC CLOS FX R70270U OTHER 07-02-2016 [facility] SHAFT LT TIBIA INIT ENC CLOS FX I340 NONRHEUMATI 05-26-2016 [place] [facility] C MITRAL SERV VALVE FOUNDATION INSUFFICIEN CY I361 NONRHEUMATI 05-26-2016 [place] [facility] C TRICUSPID SERV VALVE FOUNDATION INSUFFICIEN CY I4891 UNSPECIFIED 05-26-2016 [place] [facility] ATRIAL SERV FIBRILLATIO FOUNDATION N I517 CARDIOMEGAL 05-26-2016 [place] [facility] Y SERV [facility] I5189 OTHER 05-26-2016 [place] [facility] ILL-DEFINED SERV HEART [facility]OUNDATION DISEASES R001 BRADYCARDIA 05-26-2016 [place] [facility] UNSPECIFIED F[facility]ATION R9431 ABNORMAL 05-26-2016 [place] [facility] ELECTROCARD SERV IOGRAM [facility] I5021 ACUTE 05-25-2016 [place] [facility] SYSTOLIC SERV CONGESTIVE FOUNDATION HEART FAILURE [id number] FX UNS PART 05-25-2016 [place] [facility] NECK UNS SERV [facility] INITIAL ENC CLOS FX Z90709B CONTUSION 05-23-2016 [place] [facility]ICAL OF LUNG SERV UNSPECIFIED FOUNDATION INITIAL ENCOUNTER J811 CHRONIC 05-22-2016 [place] [facility] PULMONARY SERV EDEMA FOUNDATION R0902 HYPOXEMIA 05-22-2016 [place] [facility] I288 OTHER 05-21-2016 [place] [facility] DISEASES OF SERV PULMONARY FOUNDATION VESSELS I348 OTHER 05-21-2016 [place] [facility] NONRHEUMATI SERV C MITRAL FOUNDATION VALVE DISORDERS I371 NONRHEUMATI 05-21-2016 [place] [facility] C PULMONARY SERV VALVE FOUNDATION INSUFFICIEN CY I501 LEFT 05-21-2016 [place] [facility] VENTRICULAR SERV FAILURE FOUNDATION UNSPECIFIED J984 OTHER 05-21-2016 [place] [facility] DISORDERS SERV OF LUNG FOUNDATION R600 LOCALIZED 05-21-2016 [place] [facility] EDEMA SERV [facility]OUNDATION I480 PAROXYSMAL 05-20-2016 [place] [facility] ATRIAL SERV FIBRILLATIO FOUNDATION N I5020 UNSPECIFIED 05-20-2016 [place] [facility] SYSTOLIC SERV CONGESTIVE FOUNDATION HEART FAILURE J9601 ACUTE 05-20-2016 [place] [facility] RESPIRATORY SERV FAILURE [facility]OUNDATION WITH HYPOXIA J9811 ATELECTASIS 05-20-2016 [place] [facility] R5381 OTHER 05-20-2016 [place] [facility] MALAISE SERV FOUNDATION R846 ABN 05-20-2016 [facility] FIND IN HOSPI SPEC RESP ORGN & THOR R918 OTHER 05-20-2016 [place] [facility] NONSPECIFIC SERV ABNORMAL FOUNDATION FINDING OF LUNG FIELD M6281 MUSCLE 05-14-2016 [facility] GENERALIZED AGENCY R2689 OTHER 05-14-2016 [facility] ABNORMALITI HEALTH ES OF GAIT AGENCY AND MOBILITY O93806U UNSPECIFIED 05-14-2016 [facility] FRACTURE HEALTH LOWER END AGENCY RT FEMUR SEQUELA D649 ANEMIA 03-15-2016 [place] [facility] UNSPECIFIED SERV FOUNDATION I10 ESSENTIAL 03-15-2016 [place] [facility] PR[facility] HYPERTENSIO FOUNDATION N B56963 HEMIPLEGIA 03-15-2016 [place] [facility] FLW SERV CEREBRAL [facility]OUNDATION INFARCT AFF LT NON-DOM R252 CRAMP AND 03-15-2016 [place] [facility] SPASM SERV [facility] A499 BACTERIAL 03-13-2016 [place] [facility] INFECTION SERV UNSPECIFIED FOUNDATION G8918 OTHER ACUTE 03-13-2016 [place] [facility] POSTPROCEDU [facility] RAL PAIN N390 URINARY 03-13-2016 [place] [facility] TRACT SERV INFECTION [facility] SITE NOT SPECIFIED E6601 MORBID 03-05-2016 [facility] [place] OB[facility] DUE REHABILITAT TO EXCESS ION CALORIES G479 SLEEP 03-05-2016 [facility] [place] UNSPECIFIED REHABILITAT ION K5900 CONSTIPATIO 03-05-2016 [facility] [place] UNSPECIFIED REHABILITAT ION Z6842 BODY MASS 03-05-2016 [facility] INDEX BMI [place] 45.0-49.9 REHABILITAT ADULT ION M1990 UNSPECIFIED 03-02-2016 [facility] TIS UNSPECIFIED SITE L53159P DSPL SC FX 03-02-2016 [place] [facility] WITH IC EXT SERVICES LOW RT FEMUR INIT CLOS FX Z9889 OTHER 03-02-2016 [place] [facility] SPECIFIED SERV POSTPROCEDU FOUNDATION RAL STATES M179 OSTEOARTHRI 03-01-[address] [facility] UNSPECIFIED M2500 HEMARTHROSI 03-01-2016 [place] [facility] S SERV UNSPECIFIED FOUNDATION JOINT B33444 PAIN IN 03-01-2016 [place] RIGHT [facility]NEE MEDICAL IMAGING ASS B06514 OSTEOPHYTE 03-01-2016 [place] [facility] RIGHT HIP SERV FOUNDATION A19592 OSTEOPHYTE 03-01-2016 [place] [facility] RIGHT KNEE SERV FOUNDATION Q70079J UNS FX 03-01-2016 [place] [facility] SHAFT RT SERV [facility] INITIAL ENC CLOS FRACTURE H26884P DSPL TRNS 03-01-2016 [facility] SHAFT RT TECHNOLOGIE FEMUR S INC INITIAL ENC CLOS FX Y21508F UNS FX 03-01-2016 [place] [facility] LOWER RT SERV [facility] INITIAL ENC CLOS FRACTURE S97010D OTH FX 03-01-2016 [facility] LOWER RT PHYSICIANS, FEMUR PLLC INITIAL ENC CLOS FX C2463ER UNS 03-01-2016 [place] [facility] FRACTURE SERV UNS FEMUR FOUNDATION INITIAL ENC CLOS FX W5148UI OTHER FALL 03-01-2016 [place] [facility] ON SAME SERV LEVEL FOUNDATION INITIAL ENCOUNTER U78KTPQ UNSPECIFIED 03-01-2016 [facility] INITIAL SERVICE ENCOUNTER U36538 ENCOUNTER 03-01-2016 [place] [facility] FOR OTHER SERV PREPROCEDUR FOUNDATION AL EXAMINATION Z4689 ENCOUNTER 03-01-2016 [place] [facility] FITTING & SERV ADJUSTMENT [facility]OUNDATION OT SPEC DEVICES 4019 UNSPECIFIED 03-03-2015 [facility] [place] N [address] UNSPECIFIED 03-03-2015 [facility] [...] PA 20 8- 2- 00 01 ve WA 29 20 20 19 AI L 30 [...] 03 -2 -2 .0 00 TE ti DE 70 8- 2- 00 01 ve OL [...] 03 -2 -1 .0 00 TE ti DE 70 8- 8- 00 01 ve OL [...] PA 20 8- 8- 00 01 ve WA 29 20 20 19 AI L 30 [...] 03 -2 -2 .0 00 TE ti DE 70 8- 1- 00 01 ve OL 83 20 20 17 AI OL 20 17 17 25 D 1 05 PH FORD AR CC MA CY ER #3 10 93 0 8 MG TA B VE 68 06 07 60 30 00 RI Ac RA 46 -2 -2 .0 00 TE ti PA 20 8- 1- 00 01 ve WA 29 20 20 18 AI L 30 [...] PA 20 9- 3- 00 01 ve WA 29 20 20 18 AI L 30 [...] 03 -2 -1 .0 00 TE ti DE 70 3- 7- 00 01 ve OL [...] 03 -1 -0 .0 00 TE ti DE 70 2- 3- 00 01 ve OL [...] 03 -1 -0 .0 00 TE ti DE 70 3- 9- 00 01 ve OL [...] Procedure DOS Code Location Performer Comment RADIOLOGI 63303 LUZ Gonsales 7 MEDICAL EXAMINATI SERV ON FEMUR FOUNDATIO MINIMUM 2 N VIEWS SBSQ 19428 [facility] 7 DORENE HOWARD CARE/DAY PSC 25 MINUTES INITIAL 29666 [facility] 7 DORENE HOWARD CARE/DAY PSC 70 MINUTES RADIOLOGI 66122 [place] ROLLY Gonsales 7 MEDICAL EXAMINATI IMAGING ON CHEST ASS SINGLE VIEW FRONTAL RADIOLOGI 86218 [facility] 6 Y Y EXAMINATI [facility] ON FEMUR MINIMUM 2 VIEWS ELEVATING K0195 PATIENT PATIENT LEGREST 6 AIDS INC AIDS INC PAIR HIGH K0004 PATIENT PATIENT STRENGTH 6 AIDS INC AIDS INC LIGHTWEIG HT WHEELCHAI R HEPATITIS 71575 [facility] COLLECT[facility] 87054 [facility] N VENOUS 6 Y Y BLOOD [facility] VENIPUNCT URE RADEX 48144 [facility] HAND 2 6 Y Y VIEWS [facility] HEPATITIS 26387 [facility] B CORE 6 Y Y ANTIBODY [facility] [place] [address] [facility] HEPATITIS 6 Y Y B [facility] SURFACE ANTIGEN RADEX 92754 [facility] FOOT 6 Y Y COMPLETE [facility] MINIMUM 3 VIEWS RADEX 05648 [place] DELVIN WRIST 2 6 MEDICAL MYRA VIEWS SERV FOUNDATIO N ANTINUCLE 64793 [facility] 6 Y Y ANTIBODIE [facility] RADIOLOGI 81570 [place] MONTGOMER C 6 MEDICAL Y JUS EXAMINATI SERV ON FEMUR FOUNDATIO MINIMUM 2 N VIEWS ELEVATING K0195 PATIENT PATIENT LEGREST 6 AIDS INC AIDS INC PAIR HIGH K0004 PATIENT PATIENT STRENGTH 6 AIDS INC AIDS INC LIGHTWEIG HT WHEELCHAI R DUP-SCAN 03995 [place] LAUREN XTR VEINS 6 MEDICAL ORLIN COMPLETE SERV FOUNDATIO BILATERAL N STUDY RADIOLOGI 51085 [facility] EXAM 6 Y Y CHEST 2 HOSPITAL [...] AGENCY SPICE SET EA 15 MIN CARDIOVER 30883 [facility] AMIRA ANNA 6 [facility] ELECTIVE SERV ARRHYTHMI FOUNDATIO A N EXTERNAL ECHO 90807 [facility] AMIRA TRANSESOP 6 [facility] HAG R-T SERV 2D W/PRB FOUNDATIO IMG N ACQUISJ I&R DOP 25340 [place] AMIRA ECHOCARD 6 [facility] COLOR SERV FLOW FOUNDATIO VELOCITY N MAPPING DOPPLER 91363 [facility] ECHOCARD 6 [facility] PULSE SERV WAVE FOUNDATIO W/SPECTRA N L DISPLAY ECG 94380 [facility] ROUTINE 6 MEDICAL NAN ECG SERV W/LEAST FOUNDATIO 12 LDS N I&R ONLY SBSQ 56574 [place] [address] MEDICAL JACOBO CARE/DAY SERV [address] THORAX 98871 [place] PRABHAKAR W/O 6 MEDICAL BIRDIE CONTRAST SERV MATERIAL FOUNDATIO N INITIAL 54642 [facility] INPATIENT 6 MEDICAL HORACIO CONSULT SERV NEW/ESTAB FOUNDATIO PT 55 N MIN SBSQ 58770 [place] [address] MEDICAL MONA CARE/DAY SERV 25 FOUNDATIO MINUTES N SBSQ 71110 [place] [address] MEDICAL SELAM CARE/DAY SERV 25 FOUNDATIO MINUTES N RADIOLOGI 33681 [place] [address] MEDICAL BIRDIE EXAMINATI SERV ON CHEST FOUNDATIO SINGLE N VIEW FRONTAL RADIOLOGI 01116 [place] [address] MEDICAL BIRDIE EXAMINATI SERV ON CHEST FOUNDATIO SINGLE N VIEW FRONTAL SBSQ 80174 [facility] 6 MEDICAL MONA CARE/DAY SERV 25 FOUNDATIO MINUTES N ECHO 15443 LU[facility] CHURCHILL ELODIA TTHRC R-T 6 MEDICAL 2D SERV W/WOM-MOD FOUNDATIO E COMPL N SPEC&COLR D CYTP 22864 AYSHA APONTE SLCTV 6 Y OF HÉCTOR CELL [facility] NT INTERPJ XCPT C/[place] L[place] [address] AYSHA APONTE SURG 6 Y OF HÉCTOR PATHOLOGY [facility] GR[place] [address] [place] NICKELS ANGIOGRAP 6 MEDICAL DENISE HY CHEST SERV W/CONTRAS FOUNDATIO T/NONCONT N RAST ECG 04357 [place] ERINN CHI ROUTINE 6 MEDICAL ECG SERV W/LEAST FOUNDATIO 12 LDS N I&R ONLY RADIOLOGI 11485 [place] ZAGUROVSK C 6 MEDICAL AYA MAR EXAMINATI SERV ON CHEST FOUNDATIO SINGLE N VIEW FRONTAL RADIOLOGI 74083 [place] NICKELS C EXAM 6 MEDICAL DENISE CHEST 2 SERV VIEWS FOUNDATIO FRONTAL&L N ATERAL INITIAL 93088 [facility] 6 MEDICAL SELAM CARE/DAY SERV 50 [...] AGENCY HLTH/HOSP ICE EA 15 MIN RADIOLOGI 74100 [place] JULIANNA C 6 MEDICAL Y JUS [...] AGENCY SPICE SET EA 15 MIN HOSPITAL [address]38 [place] STILES DISCHARGE 6 MEDICAL NAN DAY [...] AIDS INC BELT/SFTY BELT/PELV STRAP EA SBSQ 36704 [place] [address] MEDICAL NAN CARE/DAY SERV 25 FOUNDATIO MINUTES N SBSQ 38281 [place] [address] MEDICAL NAN CARE/DAY SERV 25 FOUNDATIO MINUTES N SBSQ 61638 [place] [address] MEDICAL NAN CARE/DAY SERV 25 FOUNDATIO MINUTES N SBSQ 55141 [place] [address] MEDICAL NAN CARE/DAY SERV 25 FOUNDATIO MINUTES N SBSQ 83569 [place] [address] MEDICAL NAN CARE/DAY SERV 25 FOUNDATIO MINUTES N SBSQ 97434 [place] [address] MEDICAL NAN CARE/DAY SERV 25 FOUNDATIO MINUTES N SBSQ 39475 [place] [address] MEDICAL NAN CARE/DAY SERV 25 FOUNDATIO MINUTES N SBSQ 63588 [place] [address] MEDICAL PETTY CARE/DAY SERV 25 FOUNDATIO MINUTES N SBSQ 42254 [place] [address] MEDICAL PETTY CARE/DAY SERV 25 FOUNDATIO MINUTES N INITIAL 69053 [place] [address] MEDICAL PETTY CARE/DAY SERV 50 [place] [address] [place] CATHERINE, FEMORAL 6 MEDICAL JR RAY SUPRACOND SERV YLAR FOUNDATIO FRACTURE N W/XTN REPOSITIO [id number] [facility] N RT LOW 6 Y Y [facility] INTRAMED IF DEVICE OPEN ANESTHESI 19499 [place] JOSE GUADALUPE A OPEN 6 MEDICAL CLEO PROCEDURE SERVICES S LOWER 1/3 FEMUR RADIOLOGI 68500 [place] JENNIFER Gonsales 6 MEDICAL EXAMINATI SERV ON FEMUR FOUNDATIO MINIMUM 2 N VIEWS RADIOLOGI 87512 [facility] Gonsales 6 MEDICAL BERENICE EXAMINATI SERV ON FEMUR FOUNDATIO MINIMUM 2 N VIEWS INJECTION J2405 [facility] G ARAIZA 6 MEM HOSP MEM HOSP ONDANSETR INC INC ON HCL PER 1 MG ECG 19442 [facility] ERINN CHI ROUTINE 6 MEDICAL ECG SERV W/LEAST FOUNDATIO 12 LDS N I&R ONLY THERAPEUT 92333 [facility] G ARAIZA IC 6 MEM HOSP MEM HOSP INJECTION INC INC IV PUSH EACH NEW DRUG RADIOLOGI 78439 [facility] SANCHEZ ALL C 6 MEDICAL EXAMINATI IMAGING ON KNEE ASS 1/2 VIEWS RADIOLOGI 72697 [facility]Z ELMO Gonsales 6 MEDICAL BERENICE EXAMINATI SERV ON KNEE [address] LOWER 29040 LUZ HAQ EXTREMITY 6 MEDICAL NATHAN W/O SERV CONTRAST FOUNDATIO MATERIAL N RADIOLOGI 71883 [facility] SANCHEZ ALL C 6 MEDICAL EXAMINATI IMAGING ON CHEST ASS SINGLE VIEW FRONTAL THER 80571 JO[facility] G ARAIZA PROPH/DX 6 MEM HOSP MEM HOSP NJX IV INC INC PUSH SINGLE/1S T SBST/DRUG KNEE L1830 [facility] 6 TECHNOLOG TECHNOLOG IMMOBLIZE IES INC IES INC R CANVAS LONGTUDNL PREFAB GROUND A0425 [facility] 6 AMBULANCE AMBULANCE PER SERVICE SERVICE STATUTE MILE AMBULANCE A0429 [facility] SERVICE 6 AMBULANCE AMBULANCE BLS SERVICE SERVICE EMERGENCY TRANSPORT RADEX HIP 06233 [facility] ELMO 6 MEDICAL BERENICE UNILATERA SERV L WITH FOUNDATIO PELVIS N 2-3 VIEWS RADIOLOGI 74838 LUZ ELMO Gonsales 6 MEDICAL BERENICE EXAMINATI SERV ON TIBIA FOUNDATIO & FIBULA N 2 VIEWS THERAPEUT 59924 JO[facility] G ARAIZA IC 5 MEM HOSP MEM HOSP PROPHYLAC INC INC TIC/DX INJECTION SUBQ/IM Encounters Encounter Start End Date Code Location Performer Type Date OFFICE 88971 [facility] 7 7 [facility] T VISIT 5 E MINUTES [facility] - 7 [facility] OUTPATI[facility] E T [facility] - 7 7 [facility] INPATIENT INC EMERGENCY 73598 [facility] DEPT 7 7 PHYSICIAN VISIT S, PLLC HIGH SEVERITY& THREAT FUNCJ OFFICE 07957 [place] [facility]ICAL JR T VISIT SERV 25 FOUNDATIO MINUTES N OFFICE 21718 [facility] 6 6 Y T VISIT 5 HOSPITAL MINUTES OFFICE 67135 [place] [facility], [facility] 6 MEDICAL JR RAY T VISIT SERV 15 FOUNDATIO MINUTES N HOSPITAL UN[facility]ERS[facility] - 6 6 Y [facility] T OFFICE 36832 [place] DAR KRI CONSULTAT 6 6 MEDICAL ION SERV NEW/ESTAB FOUNDATIO PATIENT N 40 MIN [facility] UNIVERSIT - 6 6 Y [facility] - 6 6 Y [facility] T OFFICE 52936 [facility] 6 6 [place] MARIAA T VISIT PHYSICIAN 25 S ASSIST MINUTES OFFICE 72310 [facility] 6 6 Y T VISIT 5 [facility] UNIVERSIT - 6 6 Y [facility] T OFFICE [address] [facility] 6 6 MEDICAL JAM T VISIT SERV 25 FOUNDATIO MINUTES N [facility] UNIVERSIT - 6 6 Y [facility] 6 [facility] 61923 [facility] T VISIT REHABILIT 10 ATION MINUTES OFFICE 54714 [place] [facility] 6 MEDICAL NAN T VISIT SERV 25 FOUNDATIO MINUTES N EMERGENCY 36393 [place] ANGELIKA DEPT 6 6 MEDICAL FERNANDO VISIT SERV HIGH FOUNDATIO SEVERITY& N THREAT FUN HOME [facility], 6 6 HOME INPATIENT HEALTH AGENCY [facility] UNIVERSIT - 6 6 Y [facility] T OFFICE 53061 [facility] 6 6 Y T VISIT 5 [facility], 6 6 HOME INPATIENT HEALTH AGENCY HOME [facility], 6 6 HOME INPATIENT HEALTH [facility] UN[facility]ERS[facility] - 6 6 Y [facility] OFF[facility] 38680 [facility] 6 Y T VIS[facility] - 6 6 [place] [facility] 79108 JOSE G DEPT 6 6 MEM HOSP VISIT INC HIGH SEVERITY& THREAT [facility] UNIVERSIT - 6 6 Y INPATIENT HOSPITAL EMERGENCY 78144 ZOE SEVILLA 6 6 PHYSICIAN U HÉCTOR MOORE S, [facility] T VISIT MODERATE SEVERITY EMERGENCY 33465 JOSE G 5 5 MEM H[facility] DEPARTMEN INC T VISIT LOW/MODER SEVERITY HOSPITAL JOSE G - 5 5 [facility] OUTPATIEN INC T
--- OUTSIDE RECORDS SUMMARY | 2017-09-13 15:15 | External Medical Summary Rpt | CCD ---
Author Author , YUAN Organization YUAN Address Unknown Phone [email or web address] Care Team Providers Care Gear Changer Name Role Phone A Ilda CATHERINE MD P[facility], Lucho Unavailable Unavailable Ilda CATHERINE MD PSC [employer] Unavailable Unavailable INC, [employer] Unavailable Unavailable INC, [employer] CHANCE, CHANCE Unavailable Unavailable LAUREN ORLIN, Unavailable Unavailable LAUREN ORLIN SANCHEZ ALL, SANCHEZ ALL Unavailable Unavailable PRABHAKAR BIRDIE, PRABHAKAR Unavailable Unavailable BIRDIE [facility] Unavailable Unavailable SERVICE, [facility] Unavailable Unavailable SERVICE, [facility] Unavailable Unavailable REHABILITATION, [facility] JOSE GUADALUPE CLEO, JOSE GUADALUPE Unavailable Unavailable CLEO ROLLY, ROLLY Unavailable Unavailable BROWNLEE NAN, BROWNLEE Unavailable Unavailable NAN LICHA, LICHA Unavailable Unavailable [facility], [facility] [facility] Un[facility], [facility]ARK[facility] HORAC[facility], Unavailable Unavailable [facility] KOTTER MONA, KOTTER Unavailable Unavailable MONA [facility] Un[facility], Unavailable Unavailable [facility] JUNI JR, Unavailable Unavailable JUNI [...] Unavailable Unavailable MARIAA FADI HÉCTOR, Unavailable Unavailable APONTE HÉCTOR CHURCHILL ELODIA, CHURCHILL ELODIA Unavailable Unavailable KILO JACOBO, KILO Unavailable Unavailable JACOBO SOTINGEANU HÉCTOR, Unavailable Unavailable SOTINGEANU HÉCTOR DELVIN MYRA, DELVIN Unavailable Unavailable MYRA STILES NAN, STILES Unavailable Unavailable NAN ELMO BERENICE, ELMO Unavailable [facility]available [facility]available Unavailable ASSIST, [facility], Unavailable [facility]available [facility] Unavailable [place] [facility] EUN NATHAN, EUN Unavailable Unavailable NATHAN [facility] Unavailable Unavailable AGENCY, [facility] YOBANI BIRDIE, YOBANI Unavailable Unavailable BIRDIE JR BEAR CATHERINE, Unavailable Unavailable JR BEAR CATHERINE MAR, Unavailable Unavailable RON MAR Purpose Continuity of Care Document - 03-03-2015 through 2016 Problems Code Diagnosis DOS Provider Status [id number] UNILATERAL 04-20-2017 [facility] TIS RIGHT HIP [id number] UNS FX 04-20-2017 [facility] SHAFT RT SERV F[facility]UR [facility] SUBSQT ENC CLOS FX RTN [id number] UNS FX 04-20-2017 [facility] SUBSQT CLOS FX RTN HEAL I472 VENTRICULAR 04-09-2017 A Ilda CATHERINE MD PSC TACHYCARDIA I482 CHRONIC 04-09-2017 A Ilda CATHERINE ATRIAL PSC FIBRILLATIO N I4892 UNSPECIFIED 04-09-2017 A Ilda CATHERINE ATRIAL PSC FLUTTER I509 HEART 04-09-2017 A Ilda CATHERINE FAILURE PSC UNSPECIFIED E039 HYPOTHYROID 04-08-2017 [facility] I110 HYPERTENSIV 04-08-2017 [facility], DISEASE PLLC WITH HEART FAILURE I5043 ACUTE ON 04-08-2017 [facility]RON[facility], COMB PLLC SYSTOLIC & DIASTOLIC CHF R0600 DYSPNEA 04-08-2017 [place] [facility] R0602 SHORTNESS 04-08-2017 [place] OF BREATH [facility] J90 PLEURAL 10-27-2016 [facility] EFFUSION SERV NOT FOUNDATION ELSEWHERE CLASSIFIED M151 HEBERDENS 10-27-2016 [facility] NODES WITH SERV ARTHROPATHY FOUNDATION M159 POLYOSTEOAR 10-27-2016 [facility] THRITIS SERV UNSPECIFIED FOUNDATION M6530 TRIGGER 10-27-2016 [facility] FINGER SERV UNSPECIFIED FOUNDATION FINGER R768 OTH SPEC 10-27-2016 [facility] ABNORMAL SERV IMMUNOLOGIC FOUNDATION AL FIND IN SERUM [id number] OTH FX 09-01-2016 [facility] SUBSQT ENC CLOS FX RTN Z4789 ENCOUNTER 09-01-2016 [facility] FOR OTHER SERV ORTHOPEDIC FOUNDATION AFTERCARE Z8781 PERSONAL 09-01-2016 [facility] HISTORY OF SERV HEALED FOUNDATION TRAUMATIC FRACTURE M1711 UNILATERAL 08-16-2016 PATIENT PRIMARY AIDS INC OSTEOARTHRI TIS RIGHT KNEE [id number] OTH PHYSEAL 08-16-2016 PATIENT FX LOWER AIDS INC RT FEMUR INIT ENC CLOS FX W05180H OTH PHYSEAL 08-16-2016 PATIENT FX LOWER AIDS INC RT FEMUR SUBSQT FX RTN HEAL Z9181 HISTORY OF 08-16-2016 PATIENT FALLING AIDS INC M160 BILATERAL 07-28-2016 [facility] TIS OF HIP M170 BILATERAL 07-28-2016 [facility] TIS OF KNEE N00166 PRIMARY 07-28-2016 [facility] OSTEOARTHRI SERV TIS RIGHT FOUNDATION HAND M08936 PRIMARY 07-28-2016 [facility] OSTEOARTHRI SERV TIS LEFT FOUNDATION HAND N23546 PRIMARY 07-28-2016 [facility] TIS RIGHT ANKLE AND FOOT N32456 PRIMARY 07-28-2016 [facility] TIS LEFT ANKLE AND FOOT Z0000 ENCOUNTER 07-28-2016 [facility] MED EXAM W/O ABNORMAL FIND [id number] DSPL SC FX 07-21-2016 [facility] W/[facility] EXT [facility] LOW RT FEM SUBS CLOS RTN I3084SP UNS FX RT 07-21-2016 [facility] FEMUR SERV SUBSQT ENC FOUNDATION CLOS FX RTN HEAL [id number] [facility] 07[facility]2016 [facility] COMP OTH PHYSICIANS BONE DEVC ASSIST IMPL GRAFT INIT ENC H43267A UNS 07-02-2016 [facility] FRACTURE SERV SHAFT LT FOUNDATION TIBIA INIT ENC CLOS FX O99590G OTHER 07-02-2016 [facility] SHAFT LT TIBIA INIT ENC CLOS FX I340 NONRHEUMATI 05-26-2016 [facility] C MITRAL SERV VALVE FOUNDATION INSUFFICIEN CY I361 NONRHEUMATI 05-26-2016 [facility] C TRICUSPID SERV VALVE FOUNDATION INSUFFICIEN CY I4891 UNSPECIFIED 05-26-2016 [facility] ATRIAL SERV FIBRILLATIO FOUNDATION N I517 CARDIOMEGAL 05-26-2016 [facility] Y SERV [facility] I5189 OTHER 05-26-2016 [facility] ILL-DEFINED SERV HEART FOUNDATION DISEASES R001 BRADYCARDIA 05-26-2016 [facility] UNSPECIFIED FOUNDATION R9431 ABNORMAL 05-26-2016 [facility] ELECTROCARD SERV IOGRAM FOUNDATION I5021 ACUTE 05-25-2016 [facility] SYSTOLIC SERV CONGESTIVE FOUNDATION HEART FAILURE V79341H FX UNS PART 05-25-2016 [facility] NECK UNS SERV FEMUR FOUNDATION INITIAL ENC CLOS FX L88945C CONTUSION 05-23-2016 [facility] OF LUNG SERV UNSPECIFIED FOUNDATION INITIAL ENCOUNTER J811 CHRONIC 05-22-2016 [facility] PULMONARY SERV EDEMA FOUNDATION R0902 HYPOXEMIA 05-22-2016 [place] [facility] I288 OTHER 05-21-2016 [facility] DISEASES OF SERV PULMONARY FOUNDATION VESSELS I348 OTHER 05-21-2016 [facility] NONRHEUMATI SERV C MITRAL FOUNDATION VALVE DISORDERS I371 NONRHEUMATI 05-21-2016 [facility] C PULMONARY SERV VALVE FOUNDATION INSUFFICIEN CY I501 LEFT 05-21-2016 [facility] VENTRICULAR SERV FAILURE FOUNDATION UNSPECIFIED J984 OTHER 05-21-2016 [facility] DISORDERS SERV OF LUNG FOUNDATION R600 LOCALIZED 05-21-2016 [facility] EDEMA SERV FOUNDATION I480 PAROXYSMAL 05-20-2016 [facility] ATRIAL SERV FIBRILLATIO FOUNDATION N I5020 UNSPECIFIED 05-20-2016 [facility] SYSTOLIC SERV CONGESTIVE FOUNDATION HEART FAILURE J9601 ACUTE 05-20-2016 [facility] RESPIRATORY SERV FAILURE FOUNDATION WITH HYPOXIA J9811 ATELECTASIS 05-20-2016 [place] [facility] R5381 OTHER 05-20-2016 [facility] MALAISE SERV FOUNDATION R846 ABN 05-20-2016 [facility] FIND IN HOSPI SPEC RESP ORGN & THOR R918 OTHER 05-20-2016 [place] [facility] NONSPECIFIC SERV ABNORMAL FOUNDATION FINDING OF LUNG FIELD M6281 MUSCLE 05-14-2016 [facility] GENERALIZED AGENCY R2689 OTHER 05-14-2016 [facility] ABNORMALITI [facility] ES OF GAIT AGENCY AND MOBILITY H45584A UNSPECIFIED 05-14-2016 [facility] FRACTURE HEALTH LOWER END AGENCY RT FEMUR SEQUELA D649 ANEMIA 03-15-2016 [facility] UNSPECIFIED SERV FOUNDATION I10 ESSENTIAL 03-15-2016 [facility] PRIMARY SERV HYPERTENSIO FOUNDATION N W35237 HEMIPLEGIA 03-15-2016 [facility] FLW SERV CEREBRAL FOUNDATION INFARCT AFF LT NON-DOM R252 CRAMP AND 03-15-2016 [facility] SPASM SERV F[facility]ATION A499 BACTERIAL 03-13-2016 [facility] INFECTION SERV UNSPECIFIED FOUNDATION G8918 OTHER ACUTE 03-13-2016 [facility] POSTPROCEDU FOUNDATION RAL PAIN N390 URINARY 03-13-2016 [facility] TRACT SERV INFECTION FOUNDATION SITE NOT SPECIFIED E6601 MORBID 03-05-2016 [facility] [place] OBES[facility] DUE REHABILITAT TO EXCESS ION CALORIES G479 SLEEP 03-05-2016 [facility] [place]ORDER [place] UNSPECIFIED REHABILITAT ION K5900 CONSTIPATIO 03-05-2016 [facility] N [place] UNSPECIFIED REHABILITAT ION Z6842 BODY MASS 03-05-2016 [facility] INDEX BMI [place] JUNCTION 45.0-49.9 REHABILITAT ADULT ION M1990 UNSPECIFIED 03-02-2016 [facility] OSTEOARTHRI TIS UNSPECIFIED SITE N64630V DSPL SC FX 03-02-2016 [facility] WITH IC EXT SERVICES LOW RT FEMUR INIT CLOS FX Z9889 OTHER 03-02-2016 [facility] SPECIFIED SERV POSTPROCEDU FOUNDATION RAL STATES M179 OSTEOARTHRI 03-01-2016 [facility] UNSPECIFIED M2500 HEMARTHROSI 03-01-2016 [facility] S SERV UNSPECIFIED FOUNDATION JOINT P86563 PAIN IN 03-01-2016 [place] RIGHT KNEE MEDICAL IMAGING ASS L50270 OSTEOPHYTE 03-01-2016 [facility] RIGHT HIP SERV FOUNDATION V66971 OSTEOPHYTE 03-01-2016 [facility] RIGHT KNEE SERV FOUNDATION L05159L UNS FX 03-01-2016 [facility] SHAFT RT SERV FEMUR FOUNDATION INITIAL ENC CLOS FRACTURE S53721A DSPL TRNS 03-01-2016 [facility] FX SHAFT RT TECHNOLOGIE FEMUR S INC INITIAL ENC CLOS FX Z95784G UNS FX 03-01-2016 [facility] LOWER RT SERV FEMUR FOUNDATION INITIAL ENC CLOS FRACTURE T07569B OTH FX 03-01-2016 [facility], [facility] PLLC INITIAL ENC CLOS FX T7046RE UNS 03-01-2016 [facility] FRACTURE SERV UNS FEMUR FOUNDATION INITIAL ENC CLOS FX S0620IM OTHER FALL 03-01-2016 [facility] ON SAME SERV LEVEL FOUNDATION INITIAL ENCOUNTER Z03KOIF UNSPECIFIED 03-01-2016 [facility] INITIAL SERVICE ENCOUNTER A08087 ENCOUNTER 03-01-2016 [facility] FOR OTHER SERV PREPROCEDUR FOUNDATION AL EXAMINATION Z4689 ENCOUNTER 03-01-2016 [facility] FITTING & SERV ADJUSTMENT FOUNDATION OTH SPEC DEVICES 4019 UNSPECIFIED 03-03-2015 [facility] HYPERT[place]SIO INC N 11686 UNSPECIFIED 03-03-2015 [facility] [...] PA 20 8- 2- 00 01 ve [place] 29 20 20 19 AI L 30 [...] 03 -2 -2 .0 00 TE ti AR 70 8- 2- 00 01 ve OL [...] CY ET #3 93 8 VE 68 07 08 60 30 00 RI Ac RA 46 -2 -1 .0 00 TE ti PA 20 8- 8- 00 01 ve [place] 29 20 20 19 AI L 30 17 17 36 D ER 1 22 PH AR 18 MA 0 CY MG #3 TA 93 BL 8 ET EL 00 07 08 30 30 00 [...] 03 -2 -1 .0 00 TE ti AR 70 8- 8- 00 01 ve OL [...] TA CY BL ET #3 93 8 DI 00 06 07 30 30 00 [...] 03 -2 -2 .0 00 TE ti AR 70 8- 1- 00 01 ve OL 83 20 20 17 AI OL 20 17 17 25 D 1 05 PH FORD AR CC MA CY ER #3 10 93 0 8 MG TA B VE 68 06 07 60 30 00 RI Ac RA 46 -2 -2 .0 00 TE ti PA 20 8- 1- 00 01 ve [place] 29 20 20 18 AI L 30 [...] MA BL CY ET #3 93 8 DI 00 05 06 30 30 00 RI Ac GI 37 -2 -2 .0 00 TE ti TE 86 9- 3- 00 01 ve K 15 20 20 18 AI 12 50 17 17 57 D 5 1 55 PH MC AR G MA TA CY BL ET #3 93 8 VE 68 05 06 60 30 00 RI Ac RA 46 -2 -2 .0 00 TE ti PA 20 9- 3- 00 01 ve [place] 29 20 20 18 AI L 30 17 17 59 D ER 1 30 PH AR 18 MA 0 CY MG #3 TA 93 BL 8 ET ME 62 02 03 30 30 00 RI Ac TO 03 -2 -1 .0 00 TE ti AR 70 3- 7- 00 01 ve OL [...] TA 93 BL 8 ET EL 00 01 02 30 30 00 RI Ac IQ 00 -1 -0 .0 00 TE ti UI 30 3- 3- 00 01 ve S 89 20 20 14 AI 5 42 17 17 87 D MG 1 66 PH AR TA MA BL CY ET #3 93 8 AT 60 01 02 30 30 00 [...] 03 -1 -0 .0 00 TE ti AR 70 2- 3- 00 01 ve OL 83 20 20 14 AI OL 20 17 17 87 D 1 69 PH FORD AR CC MA CY ER #3 10 93 0 8 MG TA B ME 62 12 01 30 30 00 RI Ac TO 03 -1 -0 .0 00 TE ti AR 70 3- 9- 00 01 ve OL [...] MA BL CY ET #3 93 8 Procedures Procedure DOS Code Location Performer Comment RADIOLOGI 87183 LUZ Gonsales 7 MEDICAL EXAMINATI SERV ON FEMUR FOUNDATIO MINIMUM 2 N VIEWS SBSQ 81110 [facility] 7 DORENE HOWARD CARE/DAY PSC 25 MINUTES INITIAL 52319 [facility] 7 DORENE HOWARD CARE/DAY PSC 70 MINUTES RADIOLOGI 93763 [place] ROLLY C 7 MEDICAL EXAMINATI IMAGING ON CHEST ASS SINGLE VIEW FRONTAL RADIOLOGI 64976 [facility] 6 Y Y EXAMINATI [facility] ON FEMUR MINIMUM 2 VIEWS ELEVATING K0195 PATIENT PATIENT LEGREST 6 AIDS INC AIDS INC PAIR HIGH K0004 PATIENT PATIENT STRENGTH 6 AIDS INC AIDS INC LIGHTWEIG HT WHEELCHAI R ANTINUCLE 29401 [facility] AR 6 Y Y ANTIBODIE [facility] S CLAIRE HEPATITIS 26351 [facility] 6 Y Y ANTIBODY [facility] HEPATITIS 87759 [facility] B CORE 6 Y Y ANTIBODY [facility] [place] [address] [facility] 6 Y Y B [facility] SURFACE ANTIGEN RADEX 71417 [facility] HAND 2 6 Y Y VIEWS [facility] RADEX 16026 [facility] FOOT 6 Y Y COMPLETE [facility] MINIMUM 3 VIEWS RADEX 97379 [place] DELVIN WRIST 2 6 MEDICAL MYRA VIEWS SERV FOUNDATIO N COLLECTIO 65670 [facility] N VENOUS 6 Y Y BLOOD [facility] VENIPUNCT URE RADIOLOGI 36919 [place] MONTGOMER C 6 MEDICAL Y JUS EXAMINATI SERV ON FEMUR FOUNDATIO MINIMUM 2 N VIEWS ELEVATING K0195 PATIENT PATIENT LEGREST 6 AIDS INC AIDS INC PAIR [employer] K0004 PATIENT PATIENT STRENGTH 6 AIDS INC AIDS INC LIGHTWEIG HT WHEELCHAI R DUP-SCAN 30660 [place] LAUREN XTR VEINS 6 MEDICAL ORLIN COMPLETE SERV FOUNDATIO BILATERAL N STUDY RADIOLOGI 87225 [facility] EXAM 6 Y Y CHEST 2 HOSPITAL HOSPITAL VIEWS FRONTAL&L ATERAL LIGHTWEIG K0003 PATIENT PATIENT HT 6 AIDS INC AIDS INC WHEELCHAI R SERVICE G0151 [facility] HOME AGENCY AGENCY HLTH/HOSP ICE EA 15 MIN SERVICE G0151 [facility] HOME AGENCY AGENCY HLTH/HOSP ICE EA 15 MIN DIRECT G0299 [facility] RN 6 HOME HOME HOME [...] HLTH/HOSP ICE EA 15 MIN DIRECT G0299 [facility] 6 HOME HOME HOME HEALTH HEALTH HEALTH/HO AGENCY AGENCY SPICE SET EA [address] [facility] ANNA 6 MEDICAL MONA ELECTIVE SERV ARRHYTHMI FOUNDATIO A N EXTERNAL ECHO 58586 [facility] TRANSESOP 6 MEDICAL [facility] HAG R-T SERV 2D W/PRB FOUNDATIO IMG N ACQUISJ I&R DOP 80000 [facility] ECHOCARD 6 MEDICAL [facility] COLOR SERV FLOW FOUNDATIO VELOCITY N MAPPING ECG 06997 [facility] ROUTINE 6 MEDICAL NAN ECG SERV W/LEAST FOUNDATIO 12 LDS N I&R ONLY DOPPLER 40162 [facility] ECHOCARD 6 MEDICAL [facility] PULSE SERV WAVE FOUNDATIO W/SPECTRA N L DISPLAY SBSQ 66346 [facility] 6 MEDICAL JACOBO CARE/DAY SERV [address] THORAX 83524 [facility]O 6 MEDICAL BIRDIE CONTRAST SERV MATERIAL FOUNDATIO N SBSQ 82452 [place] [address] MEDICAL MONA CARE/DAY SERV 25 FOUNDATIO MINUTES N INITIAL 28510 [facility] MEDICAL HORACIO CONSULT SERV NEW/ESTAB FOUNDATIO PT 55 N MIN SBSQ 01078 [facility] 6 MEDICAL SELAM CARE/DAY SERV 25 FOUNDATIO MINUTES N RADIOLOGI 68598 [place] YOBANI C 6 MEDICAL BIRDIE EXAMINATI SERV ON CHEST FOUNDATIO SINGLE N VIEW FRONTAL RADIOLOGI 13812 [place] PRABHAKAR C 6 MEDICAL BIRDIE EXAMINATI SERV ON CHEST FOUNDATIO SINGLE N VIEW FRONTAL ECHO 99850 [place] ELODIA TTHRC R-T 6 MEDICAL 2D SERV W/WOM-MOD FOUNDATIO E COMPL N SPEC&COLR D SBSQ 24580 [place] [facility] 6 MEDICAL MONA CARE/DAY SERV 25 FOUNDATIO MINUTES N INITIAL 64696 [place] [facility] 6 MEDICAL SELAM CARE/DAY SERV 50 FOUNDATIO MINUTES N RADIOLOGI 54187 [place] ZAGUROVSK C 6 MEDICAL AYA MAR EXAMINATI SERV ON CHEST FOUNDATIO SINGLE N VIEW FRONTAL ECG 18422 [place] ERINN CHI ROUTINE 6 MEDICAL ECG SERV W/LEAST FOUNDATIO 12 LDS N I&R ONLY RADIOLOGI 78340 [place] NICKELS C EXAM 6 MEDICAL DENISE CHEST 2 SERV VIEWS FOUNDATIO FRONTAL&L N ATERAL CYTP 51392 [facility] SLCTV 6 Y OF HÉCTOR CELL [place] [facility] NT INTERP[place] XCP[place] L[place] [address] [facility] SURG 6 Y OF HÉCTOR PATHOLOGY [place] [facility] GR[place] [address] [place] NICKELS ANGIOGRAP 6 MEDICAL DENISE HY CHEST SERV W/CONTRAS FOUNDATIO T/NONCONT N RAST SERVICE G0151 [facility] 6 HOME HOME THERAP HEALTH HEALTH HOME AGENCY AGENCY HLTH/HOSP ICE EA 15 MIN LIGHTWEIG K0003 PATIENT PATIENT HT 6 AIDS INC AIDS INC WHEELCHAI R DIRECT G0299 [facility] RN 6 HOME HOME HOME HEALTH HEALTH HEALTH/ AGENCY AGENCY SPICE SET EA 15 MIN [...] AGENCY HLTH/HOSP ICE EA 15 MIN RADIOLOGI 27242 [place] JULIANNA C 6 MEDICAL Y JUS [...] AGENCY AGENCY SPICE SET EA 15 MIN WHLCHAIR E0978 PATIENT PATIENT ACSS PSTN 6 AIDS INC AIDS INC BELT/SFTY BELT/PELV STRAP EA LIGHTWEIG K0003 PATIENT PATIENT HT 6 AIDS INC AIDS INC WHEELCHAI R WALKER E0143 PATIENT PATIENT FOLDING 6 AIDS INC AIDS INC WHEELED ADJUSTABL E/FIXED HEIGHT GENERAL E2601 PATIENT PATIENT WHLCHAIR 6 AIDS INC AIDS INC SEAT CUSHN WIDTH < 22 [facility] [address] [place] [address] MEDICAL NAN DAY SERV MANAGEMEN FOUNDATIO T 30 N MIN/< SBSQ 17232 [place] [address] MEDICAL NAN CARE/DAY SERV 25 FOUNDATIO MINUTES N SBSQ 95707 [place] [address] MEDICAL NAN CARE/DAY SERV 25 FOUNDATIO MINUTES N SBSQ 84524 [place] [address] MEDICAL NAN CARE/DAY SERV 25 FOUNDATIO MINUTES N SBSQ 62842 [place] [address] MEDICAL NAN CARE/DAY SERV 25 FOUNDATIO MINUTES N SBSQ 85194 [place] [address] MEDICAL NAN CARE/DAY SERV 25 FOUNDATIO MINUTES N SBSQ 09914 [place] [address] MEDICAL NAN CARE/DAY SERV 25 FOUNDATIO MINUTES N SBSQ 97645 [place] [address] MEDICAL NAN CARE/DAY SERV 25 FOUNDATIO MINUTES N SBSQ [address]4055 [place] [address] MEDICAL PETTY CARE/DAY SERV 25 FOUNDATIO MINUTES N SBSQ 75420 [place] [address] MEDICAL PETTY CARE/DAY SERV 25 FOUNDATIO MINUTES N INITIAL 12532 [place] [address] MEDICAL PETTY CARE/DAY SERV 50 [place] [address] [place] CATHERINE, FEMORAL 6 MEDICAL JR RAY SUPRACOND SERV YLAR FOUNDATIO FRACTURE N W/XTN REPOSITIO [id number] [facility] N RT LOW 6 Y Y FEMUR [facility] INTRAMED IF DEVICE OPEN ANESTHESI 77619 [place] JOSE GUADALPUE A OPEN 6 MEDICAL CLEO PROCEDURE SERVICES S LOWER 1/3 FEMUR RADIOLOGI 44872 LUZ ORDAZ C 6 MEDICAL EXAMINATI SERV ON FEMUR FOUNDATIO MINIMUM 2 N VIEWS RADIOLOGI 20127 LUZ Gonsales 6 MEDICAL BERENICE EXAMINATI SERV ON FEMUR FOUNDATIO MINIMUM 2 N VIEWS INJECTION J2405 [facility] ARAIZA 6 [facility]OS[facility] ONDANSETR INC INC ON HCL PER 1 MG KNEE L1830 [facility] 6 TECHNOLOG TECHNOLOG IMMOBLIZE IES INC IES INC R CANVAS LONGTUDNL PREFAB THER 31667 [facility] ARAIZA PROPH/DX 6 [facility] NJX IV INC INC PUSH SINGLE/1S T SBST/DRUG THERAPEUT 77457 [facility] ARAIZA IC 6 [facility]OS[facility] INJECTION INC INC IV PUSH EACH NEW DRUG GROUND A0425 [facility] MILEAGE 6 AMBULANCE AMBULANCE PER SERVICE SERVICE STATUTE MILE RADEX HIP 39983 LUZ BORREGO 6 MEDICAL BERENICE UNILATERA SERV L WITH FOUNDATIO PELVIS N 2-3 VIEWS RADIOLOGI 21173 LUZ Gonsales 6 MEDICAL BERENICE EXAMINATI SERV ON TIBIA FOUNDATIO & FIBULA N 2 VIEWS ECG 79215 [facility] ERINN CHI ROUTINE 6 MEDICAL ECG SERV W/LEAST FOUNDATIO 12 LDS N I&R ONLY RADIOLOGI 94545 [place] SANCHEZ ALL C 6 MEDICAL EXAMINATI IMAGING ON CHEST ASS SINGLE VIEW FRONTAL RADIOLOGI 68637 [place] SANCHEZ ALL C 6 MEDICAL EXAMINATI IMAGING ON KNEE ASS 1/2 VIEWS RADIOLOGI 01323 LUZ ELMO C 6 MEDICAL BERENICE EXAMINATI SERV ON KNEE [address] LOWER 92315 LUZ MEILY LIN EXTREMITY 6 MEDICAL NATHAN W/O SERV CONTRAST FOUNDATIO MATERIAL N AMBULANCE A0429 [facility] SERVICE 6 AMBULANCE AMBULANCE BLS SERVICE SERVICE EMERGENCY TRANSPORT THERAPEUT 21494 [facility] ARAIZA IC 5 [facility] PROPHYLAC INC INC TIC/DX INJECTION SUBQ/IM Encounters Encounter Start End Date Code Location Performer Type Date OFFICE 27917 [facility] 7 7 [facility] T VISIT 5 E MINUTES [facility] - 7 7 [facility] OUTPATIEN E T [facility]PITALS EMERGENCY 09387 [facility] CHOEEY DEPT 7 7 PHYSICIAN VISIT S, PLL[facility] JOSE G - 7 7 [facility] INPATIENT INC OFFICE 32228 [place] [facility] 6 6 MEDICAL JR T VISIT SERV 25 FOUNDATIO MINUTES N OFFICE 54723 [place] CATHERINE, [facility] 6 6 MEDICAL JR RAY T VISIT SERV 15 FOUNDATIO MINUTES N HOSPITAL UNIVERSIT - 6 6 Y [facility] T OFFICE 23999 [facility] 6 6 Y T VISIT 5 [facility] OFFICE [address]151 [place] DAR KRI CONSULTAT 6 6 MEDICAL ION SERV NEW/ESTAB FOUNDATIO PATIENT N 40 MIN [facility] UNIVERSIT - 6 6 Y [facility] UNIVERSIT - 6 6 Y [facility] T OFFICE 52780 [facility] 6 6 [place] MARIAA T VISIT PHYSICIAN 25 S ASSIST MINUTES OFFICE 10367 [facility] 6 6 Y T VISIT 5 [facility] UNIVERSIT - 6 6 Y [facility] T OFFICE 57016 [place] RUIZ [facility] 6 6 MEDICAL JAM T VISIT SERV 25 FOUNDATIO MINUTES [facility] UNIVERSIT - 6 6 Y [facility] CARDINAL - 6 6 [facility] REHABILIT T AT[facility] OFFICE 49190 [facility] 6 6 HILL T VISIT REHABILIT 10 ATION MINUTES EMERGENCY 89733 [place] [facility] DEPT 6 6 MEDICAL FERNANDO VISIT SERV HIGH FOUNDATIO SEVERITY& N THREAT FUN OFFICE [id number] [place] [facility] 6 6 MEDICAL NAN T VISIT SERV 25 FOUNDATIO MINUTES N [facility] 6 6 HOME [facility] 6 6 Y T [facility]ISIT 5 [facility] 6 6 HOME INPATIENT HEALTH AGENCY [facility], 6 6 [place] [facility] 6 [facility] [id number] [facility] 6 6 Y T [facility]ISIT 5 [facility] CARDINAL [facility] 6 6 [place] [facility] EMERGENC[facility] [id number] JOSE G DEPT 6 6 [facility] VISIT INC HIGH SEVERITY& THREAT [facility] UNIVERSIT [facility] 6 6 Y INPATIENT HOSPITAL EMERGENCY 31270 ZOE SEVILLA 6 6 PHYSICIAN U HÉCTOR HERNANDEZMEN S, [facility] T VISIT MODERATE SEVERITY HOSPITAL JOSE G - 5 5 [facility] OUTPATIEN INC T EMERGENCY [id number] JOSE G 5 5 [facility] DEPARTMEN INC T VISIT LOW/MODER SEVERITY
--- OUTSIDE RECORDS SUMMARY | 2017-09-13 15:15 | External Medical Summary Rpt | CCD ---
Author Author , YUAN Organization YUAN Address Unknown Phone [email or web address] Care Team Providers Care Shipfitter Helper Name Role Phone A Ilda CATHERINE MD PSC, Lucho Unavailable Unavailable Ilda CATHERINE MD PSC [employer] Unavailable Unavailable INC, [employer] Unavailable Unavailable INC, [employer] CHANCE, CHANCE Unavailable Unavailable LAUREN ORLIN, Unavailable Unavailable LAUREN ORLIN SANCHEZ ALL, SANCHEZ ALL Unavailable Unavailable PRABHAKRA BIRDIE, PRABHAKAR Unavailable Unavailable B[facility] Unavailable Unavailable SERVICE, [facility] Unavailable Unavailable SERVICE, [facility] Unavailable Unavailable REHABILITATION, [facility] JOSE GUADALUPE CLEO, JOSE GUADALUPE Unavailable Unavailable CLEO ROLLY, ROLLY Unavailable Unavailable BROWNLEE NAN, BROWNLEE Unavailable Unavailable NAN LICHA, LICHA Unavailable Unavailable [facility] Un[facility] Un[facility], [facility], [facility] SPARKLE HORACIO, Unavailable Unavailable [facility] KOTTER MONA, KOTTER Unavailable Unavailable MONA [facility], [facility] Un[facility]available [facility], Unavailable [...] [facility] Un[facility] Unavailable Unavailable ASSIST, [facility], Unavailable Unavailable [facility] EUN NATHAN, EUN Unavailable Unavailable NATHAN [facility] Unavailable Unavailable AGENCY, [facility] YOBANI BIRDIE, YOBANI Unavailable Unavailable BIRDIE JR BEAR CATHERINE, Unavailable Unavailable JR BEAR CATHERINE MAR, Unavailable Unavailable RON MAR Purpose Continuity of Care Document - 03-03-2015 through 2016 Problems Code Diagnosis DOS Provider Status [id number] UNILATERAL 04-20-2017 [facility] OSTEOARTHRI FOUNDATION TIS RIGHT HIP [id number] UNS FX 04-20-2017 [facility] SHAFT RT SERV FEMUR [facility]OUNDATION SUBSQT ENC CLOS FX RTN [id number] UNS FX 04-20-2017 [facility] SUBSQT CLOS FX RTN HEAL I472 VENTRICULAR 04-09-2017 A Ilda CATHERINE MD PSC TACHYCARDIA I482 CHRONIC 04-09-2017 A Ilda CATHERINE ATRIAL PSC FIBRILLATIO N I4892 UNSPECIFIED 04-09-2017 A Ilda CATHERINE ATRIAL PSC FLUTTER I509 HEART 04-09-2017 A Ilda CATHERINE FAILURE PSC UNSPECIFIED E039 HYPOTHYROID 04-08-2017 [facility] UNSPEC[facility] INC I110 HYPERTENSIV 04-08-2017 [facility], DISEASE PLLC WITH HEART FAILURE I5043 ACUTE ON 04-08-2017 [facility] CHRONIC [facility], COMB PLLC SYSTOLIC & DIASTOLIC CHF R0600 DYSPNEA 04-08-2017 [facility] R0602 SHORTNESS 04-08-2017 [facility] J90 PLEURAL 10-27-2016 [facility] EFFUSION SERV NOT FOUNDATION ELSEWHERE CLASSIFIED M151 HEBERDENS 10-27-2016 [facility] NODES WITH SERV ARTHROPATHY FOUNDATION M159 POLYOSTEOAR 10-27-2016 [facility] THRITIS SERV UNSPECIFIED FOUNDATION M6530 TRIGGER 10-27-2016 [facility] FINGER SERV UNSPECIFIED FOUNDATION FINGER R768 OTH SPEC 10-27-2016 [place] [facility] ABNORMAL SERV IMMUNOLOGIC FOUNDATION AL FIND IN SERUM [id number] OTH FX 09-01-2016 [facility] SUBSQT ENC CLOS FX RTN Z4789 ENCOUNTER 09-01-2016 [facility] FOR OTHER SERV ORTHOPEDIC FOUNDATION AFTERCARE Z8781 PERSONAL 09-01-2016 [facility] HISTORY OF SERV HEALED FOUNDATION TRAUMATIC FRACTURE M1711 UNILATERAL 08-16-2016 PATIENT PRIMARY AIDS INC OSTEOARTHRI TIS RIGHT KNEE [id number] OTH PHYSEAL 08-16-2016 PATIENT FX LOWER AIDS INC RT FEMUR INIT ENC CLOS FX [id number] OTH PHYSEAL 08-16-2016 PATIENT FX LOWER AIDS INC RT FEMUR SUBSQT FX RTN HEAL Z9181 HISTORY OF 08-16-2016 PATIENT FALLING AIDS INC M160 BILATERAL 07-28-2016 [facility] PR[facility]AR[facility]RI [facility] TIS OF HIP M170 BILATERAL 07-28-2016 [facility] OSTEOARTHRI [facility]ATION TIS OF KNEE E58622 PRIMARY 07-28-2016 [facility] OSTEOARTHRI SERV TIS RIGHT FOUNDATION HAND H84559 PRIMARY 07-28-2016 [facility] OSTEOARTHRI SERV TIS LEFT FOUNDATION HAND E61116 PR[facility] 07-28-2016 [facility] TIS RIGHT ANKLE AND FOOT J40181 PRIMARY 07-28-2016 [facility] TIS LEFT ANKLE AND FOOT Z0000 ENCOUNTER 07-28-2016 [facility] MED EXAM W/O ABNORMAL FIND H48319G DSPL SC FX 07-21-2016 [place] W/O IC EXT HOSPITAL LOW RT FEM SUBS CLOS RTN Q8881IP UNS FX RT 07-21-2016 [facility] FEMUR SERV SUBSQT ENC FOUNDATION CLOS FX RTN HEAL S80028F [facility] 07-21-2016 [facility] COMP OTH PHYSICIANS BONE DEVC ASSIST IMPL GRAFT INIT ENC Q59540W UNS 07-02-2016 [facility] FRACTURE SERV SHAFT LT FOUNDATION TIBIA INIT ENC CLOS FX [id number] OTHER 07-02-2016 [facility] [place] [facility] SHAFT LT TIBIA INIT ENC CLOS FX I340 NONRHEUMATI 05-26-2016 [facility] C MITRAL SERV VALVE FOUNDATION INSUFFICIEN CY I361 NONRHEUMATI 05-26-2016 [facility] C TRICUSPID SERV VALVE FOUNDATION INSUFFICIEN CY I4891 UNSPECIFIED 05-26-2016 [facility] ATRIAL SERV FIBRILLATIO FOUNDATION N I517 CARDIOMEGAL 05-26-2016 [facility] Y SERV FOUNDATION I5189 OTHER 05-26-2016 [facility] ILL-DEFINED SERV HEART FOUNDATION DISEASES R001 BRADYCARDIA 05-26-2016 [facility] UNSPECIFIED FOUNDATION R9431 ABNORMAL 05-26-2016 [facility] ELECTROCARD SERV IOGRAM FOUNDATION I5021 ACUTE 05-25-2016 [facility] SYSTOLIC SERV CONGESTIVE FOUNDATION HEART FAILURE [id number] FX UNS PART 05-25-2016 [facility] NECK UNS SERV FEMUR FOUNDATION INITIAL ENC CLOS FX F65239E CONTUSION 05-23-2016 [facility] OF LUNG SERV UNSPECIFIED FOUNDATION INITIAL ENCOUNTER J811 CHRONIC 05-22-2016 [facility] PULMONARY SERV EDEMA FOUNDATION R0902 HYPOXEMIA 05-22-2016 [place] [facility] I288 OTHER 05-21-2016 [facility] DISEASES OF SERV PULMONARY FOUNDATION VESSELS I348 OTHER 05-21-2016 [facility] NONRHEUMATI SERV C MITRAL FOUNDATION VALVE DISORDERS I371 NONRHEUMATI 05-21-2016 [facility] C PULMONARY SERV VALVE FOUNDATION INSUFFICIEN CY I501 LEFT 05-21-2016 [facility] VENTRICULAR SERV FAILURE FOUNDATION UNSPECIFIED J984 OTHER 05-21-2016 [facility] DISORDERS SERV OF LUNG FOUNDATION R600 LOCALIZED 05-21-2016 [facility] EDEMA SERV FOUNDATION I480 PAROXYSMAL 05-20-2016 [facility] ATRIAL SERV FIBRILLATIO FOUNDATION N I5020 UNSPECIFIED 05-20-2016 [facility] SYSTOLIC SERV CONGESTIVE FOUNDATION HEART FAILURE J9601 ACUTE 05-20-2016 [facility] RESPIRATORY SERV FAILURE FOUNDATION WITH HYPOXIA J9811 ATELECTASIS 05-20-2016 [place] [facility] R5381 OTHER 05-20-2016 [facility] MALAISE SERV FOUNDATION R846 ABN 05-20-2016 [facility] FIND IN HOSPI SPEC RESP ORGN & THOR R918 OTHER 05-20-2016 [facility] NONSPECIFIC SERV ABNORMAL FOUNDATION FINDING OF LUNG FIELD M6281 MUSCLE 05-14-2016 [facility] GENERALIZED AGENCY R2689 OTHER 05-14-2016 [facility] ABNORMALITI [facility] ES OF GAIT AGENCY AND MOBILITY S75149I UNSPECIFIED 05-14-2016 [facility] FRACTURE HEALTH LOWER END AGENCY RT FEMUR SEQUELA D649 ANEMIA 03-15-2016 [facility] UNSPECIFIED SERV FOUNDATION I10 ESSENTIAL 03-15-2016 [facility] PRIMARY SERV HYPERTENSIO FOUNDATION N H72800 HEMIPLEGIA 03-15-2016 [facility] FLW SERV CEREBRAL FOUNDATION INFARCT AFF LT NON-DOM R252 CRAMP AND 03-15-2016 [facility] SPASM SERV FOUNDATION A499 BACTERIAL 03-13-2016 [facility] INFECTION SERV UNSPECIFIED FOUNDATION G8918 OTHER ACUTE 03-13-2016 [facility] SERV POSTPROCEDU FOUNDATION RAL PAIN N390 URINARY 03-13-2016 [facility] TRACT SERV INFECTION FOUNDATION SITE NOT SPECIFIED E6601 MORBID 03-05-2016 [facility] [place] OBESITY DUE REHABILITAT TO EXCESS ION CALORIES G479 SLEEP 03-05-2016 [facility] [place] [facility] UNSPECIFIED REHABILITAT ION K5900 CONSTIPATIO 03-05-2016 [facility] [place] UNSPECIFIED REHABILITAT ION Z6842 BODY MASS 03-05-2016 [facility] INDEX BMI EAGLE 45.0-49.9 REHABILITAT ADULT ION M1990 UNSPECIFIED 03-02-2016 [facility] OSTEOARTHRI TIS UNSPECIFIED SITE Q71569Q DSPL SC FX 03-02-2016 [facility] WITH IC EXT SERVICES LOW RT FEMUR INIT CLOS FX Z9889 OTHER 03-02-2016 [facility] SPECIFIED SERV POSTPROCEDU FOUNDATION RAL STATES M179 OSTEOARTHRI 03-01-2016 [facility] UNSPECIFIED M2500 HEMARTHROSI 03-01-2016 [facility] S SERV UNSPECIFIED FOUNDATION JOINT G27314 PAIN IN 03-01-2016 [facility] [facility] K51987 OSTEOPHYTE 03-01-2016 [facility] RIGHT HIP SERV FOUNDATION N20727 OSTEOPHYTE 03-01-2016 [facility] RIGHT KNEE SERV FOUNDATION A99438J UNS FX 03-01-2016 [facility] SHAFT RT SERV FEMUR FOUNDATION INITIAL ENC CLOS FRACTURE T14282V DSPL TRNS 03-01-2016 [facility] FX SHAFT RT TECHNOLOGIE FEMUR S INC INITIAL ENC CLOS FX Z07875D UNS FX 03-01-2016 [facility] LOWER RT SERV FEMUR FOUNDATION INITIAL ENC CLOS FRACTURE W05501G OTH FX 03-01-2016 [facility] LOWER RT PHYSICIANS, FEMUR PLLC INITIAL ENC CLOS FX G4194PW UNS 03-01-2016 [facility] FRACTURE SERV UNS FEMUR FOUNDATION INITIAL ENC CLOS FX B7599UP OTHER FALL 03-01-2016 [facility] ON SAME SERV LEVEL FOUNDATION INITIAL ENCOUNTER P89BDXF UNSPECIFIED 03-01-2016 [facility] INITIAL SERVICE ENCOUNTER U49018 ENCOUNTER 03-01-2016 [facility] FOR OTHER SERV PREPROCEDUR FOUNDATION AL EXAMINATION Z4689 ENCOUNTER 03-01-2016 [facility] FITTING & SERV ADJUSTMENT FOUNDATION OTH SPEC DEVICES 4019 UNSPECIFIED 03-03-2015 [facility] [place] N 67237 UNSPECIFIED 03-03-2015 [facility] [...] PA 20 8- 2- 00 01 ve MS 29 20 20 19 AI L 30 [...] 03 -2 -2 .0 00 TE ti NE 70 8- 2- 00 01 ve OL [...] PA 20 8- 8- 00 01 ve MS 29 20 20 19 AI L 30 [...] 03 -2 -1 .0 00 TE ti NE 70 8- 8- 00 01 ve OL [...] 03 -2 -2 .0 00 TE ti NE 70 8- 1- 00 01 ve OL 83 20 20 17 AI OL 20 17 17 25 D 1 05 PH FORD AR CC MA CY ER #3 10 93 0 8 MG TA B VE 68 06 07 60 30 00 RI Ac RA 46 -2 -2 .0 00 TE ti PA 20 8- 1- 00 01 ve MS 29 20 20 18 AI L 30 [...] PA 20 9- 3- 00 01 ve MS 29 20 20 18 AI L 30 17 17 59 D ER 1 30 PH AR 18 MA 0 CY MG #3 TA 93 BL 8 ET ME 62 02 03 30 30 00 RI Ac TO 03 -2 -1 .0 00 TE ti NE 70 3- 7- 00 01 ve OL [...] 03 -1 -0 .0 00 TE ti NE 70 2- 3- 00 01 ve OL 83 20 20 14 AI OL 20 17 17 87 D 1 69 PH FORD AR CC MA CY ER #3 10 93 0 8 MG TA B ME 62 12 01 30 30 00 RI Ac TO 03 -1 -0 .0 00 TE ti NE 70 3- 9- 00 01 ve OL [...] Procedure DOS Code Location Performer Comment RADIOLOGI 81843 LUZ Gonsales 7 MEDICAL EXAMINATI SERV ON FEMUR FOUNDATIO MINIMUM 2 N VIEWS SBSQ 97810 [facility] 7 DORENE HOWARD CARE/DAY PSC 25 MINUTES INITIAL 08874 [facility] 7 DORENE HOWARD CARE/DAY PSC 70 MINUTES RADIOLOGI 59436 [place] ROLLY C 7 MEDICAL EXAMINATI IMAGING ON CHEST ASS SINGLE VIEW FRONTAL RADIOLOGI 16429 [facility] 6 Y Y EXAMINATI [facility] ON FEMUR MINIMUM 2 VIEWS ELEVATING K0195 PATIENT PATIENT LEGREST 6 AIDS INC AIDS INC PAIR HIGH K0004 PATIENT PATIENT STRENGTH 6 AIDS INC AIDS INC LIGHTWEIG HT WHEELCHAI R ANTINUCLE 46642 [facility] AR 6 Y Y ANTIBODIE [facility] S CLAIRE HEPATITIS 44712 [facility] 6 Y Y ANTIBODY [facility] HEPATITIS 19611 [facility] B CORE 6 Y Y ANTIBODY [facility] [place] [address] [facility] 6 Y Y B [facility] SURFACE ANTIGEN RADEX 54952 [facility] HAND 2 6 Y Y VIEWS [facility] RADEX 93749 [facility] FOOT 6 Y Y COMPLETE [facility] MINIMUM 3 VIEWS RADEX 48414 [place] DELVIN WRIST 2 6 MEDICAL MYRA VIEWS SERV FOUNDATIO N COLLECTIO 22547 [facility] N VENOUS 6 Y Y BLOOD [facility] VENIPUNCT URE RADIOLOGI 58433 [place] MONTGOMER C 6 MEDICAL Y JUS EXAMINATI SERV ON FEMUR FOUNDATIO MINIMUM 2 N VIEWS ELEVATING K0195 PATIENT PATIENT LEGREST 6 AIDS INC AIDS INC PAIR [facility] K0004 PATIENT PATIENT STRENGTH 6 AIDS INC AIDS INC LIGHTWEIG HT WHEELCHAI R DUP-SCAN 26786 [place] LAUREN XTR VEINS 6 MEDICAL ORLIN COMPLETE SERV FOUNDATIO BILATERAL N STUDY RADIOLOGI 32665 [facility] EXAM 6 Y Y CHEST 2 [...] AGENCY SPICE SET EA 15 MIN CARDIOVER 92626 [facility] ANNA 6 MEDICAL MONA ELECTIVE SERV ARRHYTHMI FOUNDATIO A N EXTERNAL ECHO 80652 [facility] TRANSESOP 6 MEDICAL [facility] HAG R-T SERV 2D W/PRB FOUNDATIO IMG N ACQUISJ I&R DOP 86006 [facility] ECHOCARD 6 MEDICAL [facility] COLOR SERV FLOW FOUNDATIO VELOCITY N MAPPING ECG 85636 [facility] ROUTINE 6 MEDICAL NAN ECG SERV W/LEAST FOUNDATIO 12 LDS N I&R ONLY DOPPLER 78181 [facility] ECHOCARD 6 MEDICAL [facility] PULSE SERV WAVE FOUNDATIO W/SPECTRA N L DISPLAY SBSQ 48833 [facility] 6 MEDICAL JACOBO CARE/DAY SERV [address] THORAX 87333 [facility] W/O 6 MEDICAL BIRDIE CONTRAST SERV MATERIAL FOUNDATIO N SBSQ 08680 [place] [address] MEDICAL MONA CARE/DAY SERV 25 FOUNDATIO MINUTES N [address] [facility] MEDICAL HORACIO CONSULT SERV NEW/ESTAB FOUNDATIO PT 55 N MIN SBSQ 97736 [facility] 6 MEDICAL SELAM CARE/DAY SERV 25 FOUNDATIO MINUTES N RADIOLOGI 56517 [place] YOBANI C 6 MEDICAL BIRDIE EXAMINATI SERV ON CHEST FOUNDATIO SINGLE N VIEW FRONTAL RADIOLOGI 37786 [place] PRABHAKAR C 6 MEDICAL BIRDIE EXAMINATI SERV ON CHEST FOUNDATIO SINGLE N VIEW FRONTAL ECHO 85856 [place] [facility] ELODIA [facility]RC R-T 6 MEDICAL 2D SERV W/WOM-MOD FOUNDATIO E COMPL N SPEC&COLR D SBSQ 64593 [place] [facility] 6 MEDICAL MONA CARE/DAY SERV 25 FOUNDATIO MINUTES N INITIAL 20506 [place] [facility] 6 MEDICAL SELAM CARE/DAY SERV 50 FOUNDATIO MINUTES N RADIOLOGI 07205 [place] ZAGUROVSK C 6 MEDICAL AYA MAR EXAMINATI SERV ON CHEST FOUNDATIO SINGLE N VIEW FRONTAL ECG 81471 [place] ERINN CHI ROUTINE 6 MEDICAL ECG SERV W/LEAST FOUNDATIO 12 LDS N I&R ONLY RADIOLOGI 38275 [place] NICKELS C EXAM 6 MEDICAL DENISE CHEST 2 SERV VIEWS FOUNDATIO FRONTAL&L N ATERAL CYTP 18668 [facility] SLCTV 6 Y OF HÉCTOR CELL [facility] [place] INTER[place] L[place] [address] [facility] SURG 6 Y OF HÉCTOR PATHOLOGY [facility] [place] [address] [place] NICKELS ANGIOGRAP 6 MEDICAL DENISE HY [...] AGENCY HLTH/HOSP ICE EA 15 MIN RADIOLOGI 86785 [place] JULIANNA C 6 MEDICAL Y JUS [...] CUSHN WIDTH < 22 [facility] [address] [place] [address] MEDICAL NAN DAY SERV MANAGEMEN FOUNDATIO T 30 N MIN/< SBSQ 58397 [place] [address] MEDICAL NAN CARE/DAY SERV 25 FOUNDATIO MINUTES N SBSQ 55679 [place] [address] MEDICAL NAN CARE/DAY SERV 25 FOUNDATIO MINUTES N SBSQ 24897 [place] [address] MEDICAL NAN CARE/DAY SERV 25 FOUNDATIO MINUTES N SBSQ 78256 [place] [address] MEDICAL NAN CARE/DAY SERV 25 FOUNDATIO MINUTES N SBSQ 98086 [place] [address] MEDICAL NAN CARE/DAY SERV 25 FOUNDATIO MINUTES N SBSQ 48931 [place] [address] MEDICAL NAN CARE/DAY SERV 25 FOUNDATIO MINUTES N SBSQ 41463 [place] [address] MEDICAL NAN CARE/DAY SERV 25 FOUNDATIO MINUTES N SBSQ 30378 [place] [address] MEDICAL PETTY CARE/DAY SERV 25 FOUNDATIO MINUTES N SBSQ 59096 [place] [address] MEDICAL PETTY CARE/DAY SERV 25 FOUNDATIO MINUTES N INITIAL 50800 [place] [address] MEDICAL PETTY CARE/DAY SERV 50 [place] [address] [place] CATHERINE, FEMORAL 6 MEDICAL JR RAY SUPRACOND SERV YLAR FOUNDATIO FRACTURE N W/XTN REPOSITIO [id number] [facility] N RT LOW 6 Y Y FEMUR [facility] INTRAMED IF DEVICE OPEN ANESTHESI 85308 [place] JOSE GUADALUPE A OPEN 6 MEDICAL CLEO PROCEDURE SERVICES S LOWER 1/3 FEMUR RADIOLOGI 70147 LUZ ORDAZ C 6 MEDICAL EXAMINATI SERV ON FEMUR FOUNDATIO MINIMUM 2 N VIEWS RADIOLOGI 21252 [facility] Gonsales 6 MEDICAL BERENICE EXAMINATI SERV ON FEMUR FOUNDATIO MINIMUM 2 N VIEWS INJECTION J2405 [facility] ARAIZA 6 MEM HOS[facility] MEM HOSP ONDANSETR INC INC ON HCL PER 1 MG KNEE L1830 [facility] 6 TECHNOLOG TECHNOLOG IMMOBLIZE IES INC IES INC R CANVAS LONGTUDNL PREFAB THER 93209 [facility] ARAIZA PROPH/DX 6 [facility] NJX IV INC INC PUSH SINGLE/1S T SBST/DRUG THERAPEUT 83479 [facility] ARAIZA IC 6 [facility]OS[facility] INJECTION INC INC IV PUSH EACH NEW DRUG GROUND A0425 [facility] MILEAGE 6 AMBULANCE AMBULANCE PER SERVICE SERVICE STATUTE MILE RADEX HIP 98318 [facility] BORREGO 6 MEDICAL BERENICE UNILATERA SERV L WITH FOUNDATIO PELVIS N 2-3 VIEWS RADIOLOGI 65531 LU[facility] Gonsales 6 MEDICAL BERENICE EXAMINATI SERV ON TIBIA FOUNDATIO & FIBULA N 2 VIEWS ECG 37675 [facility] ERINN CHI ROUTINE 6 MEDICAL ECG SERV W/LEAST FOUNDATIO 12 LDS N I&R ONLY RADIOLOGI 66074 [place] SANCHEZ ALL C 6 MEDICAL EXAMINATI IMAGING ON CHEST ASS SINGLE VIEW FRONTAL RADIOLOGI 93473 [place] SANCHE[place] ALL C 6 MEDICAL EXAMINATI IMAGING ON KNEE ASS 1/2 VIEWS RADIOLOGI 30636 LUZ ELMO C 6 MEDICAL BERENICE EXAMINATI SERV ON KNEE [address] LOWER 86793 LUZ EMILY LIN EXTREMITY 6 MEDICAL NATHAN W/O SERV CONTRAST FOUNDATIO MATERIAL N AMBULANCE A0429 [facility] SERVICE 6 AMBULANCE AMBULANCE BLS SERVICE SERVICE EMERGENCY TRANSPORT THERAPEUT 73824 [facility] ARAIZA IC 5 [facility] PROPHYLAC INC INC TIC/DX INJECTION SUBQ/IM Encounters Encounter Start End Date Code Location Performer Type Date OFFICE 61323 [facility] 7 7 [facility] T VISIT 5 E MINUTES [facility] - 7 7 [facility] OUTPATIEN E T [facility]PITALS EMER[facility] 79267 [facility]OE CHOEEY DEPT 7 7 PHYSICIAN VISIT S, PLLC HIGH SEVERITY& THREAT FUN [facility] JO[facility] G - 7 7 [facility] INPATIENT [place] 90919 [place] [facility] MEDICAL JR T VISIT SERV 25 FOUNDATIO MINUTES N OFFICE 03417 [place] CATHERINE, [facility] 6 6 MEDICAL JR RAY T VISIT SERV 15 FOUNDATIO MINUTES N HOSPITAL [facility] - [address] [facility] T OFFICE 83876 [facility] 6 6 Y T VISIT 5 [facility] OFF[facility] [address]388 [place] DAR KRI CONSULTAT 6 6 MEDICAL ION SERV NEW/ESTAB FOUNDATIO PATIENT N 40 MIN [facility] - 6 6 Y [facility] [address] [facility] T OFFICE 21576 [facility] 6 6 [place] MARIAA T VISIT PHYSICIAN 25 S ASSIST MINUTES OFFICE 09554 [facility] 6 6 Y T VISIT 5 [facility] - 6 [address] [facility] T OFFICE [address] [facility] 6 6 MEDICAL JAM T VISIT SERV 25 FOUNDATIO MINUTES [facility] UNIVERS[facility] - 6 6 Y [facility] OFF[facility] 60345 [facility] 6 6 HILL T VISIT REHABILIT 10 ATION MINUTES EMERGENCY 81297 [place] ANGELIKA DEPT 6 6 MEDICAL FERNANDO VISIT SERV HIGH FOUNDATIO SEVERITY& N THREAT FUN OFFICE 57659 [place] [facility] 6 6 MEDICAL NAN T VISIT SERV 25 FOUNDATIO MINUTES N HOME [facility], 6 6 HOME INPATIENT HEALTH AGENCY OFFICE 91108 [facility] 6 6 Y T VISIT 5 [facility], 6 6 HOME INPATIENT HEALTH AGENCY HOME [facility], 6 6 [facility] INPATIENT HEALTH [facility] UNIVERSIT - 6 6 Y [facility] T OFFICE [address] [facility] 6 6 Y T VISIT 5 [facility] C[facility]AL - 6 6 [place] [facility] EMERGENCY 41889 JOSE G DEPT 6 6 MEM H[facility] VISIT INC HIGH SEVERITY& THREAT [facility] UNIVERSIT - 6 6 Y INPATIENT HOSPITAL EMERGENCY 74375 ZOE SEVILLA 6 6 PHYSICIAN U HÉCTOR HERNANDEZMEN S, [facility] T VISIT MODERATE SEVERITY HOSPITAL JOSE G - 5 5 [facility] OUTPATIEN INC T EMERGENCY 42800 JOSE G 5 5 [facility] DEPARTMEN INC T VISIT LOW/MODER SEVERITY
--- OUTSIDE RECORDS SUMMARY | 2017-09-13 15:16 | External Medical Summary Rpt | CCD ---
Demographics Preferred Language Nepali Marital Status Unknown Mu-Ism Affiliation Unknown Race Unknown Ethnic Group Unknown Author Author , YUAN BOLDEN Address Unknown Phone Immunization No patient found.
--- OUTSIDE RECORDS SUMMARY | 2017-09-13 15:16 | External Medical Summary Rpt | CCD ---
Demographics Preferred Language Occitan Marital Status Unknown Taoist Affiliation Unknown Race Unknown Ethnic Group Unknown Author Author , UYAN BOLDEN Address Unknown Phone Immunization No patient found.
--- OUTSIDE RECORDS SUMMARY | 2017-09-13 15:16 | External Medical Summary Rpt ---
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 Albumin/G 1.1 - 1.8 No Low No April 11 lobulin informati informati 2016 6:17 [Mass on in on in AM ratio] in source source Serum or data data Plasma Albumin 3.4 - 5.0 gm/dL Low No April 11 [Mass/vol informati 2016 6:17 ume] in on in AM Serum or source Plasma data Alkaline 46 - 116 U/L Normal No April 11 phosphata informati 2016 6:17 se on in AM [Enzymati source c data activity/ volume] in Serum or Plasma Bilirubin 0.2 - 1.0 mg/dL Normal No April 11 .total informati 2016 6:17 [Mass/vol on in AM ume] in source Serum or data Plasma Urea 7 - 18 mg/dL High No April 11 nitrogen informati 2016 6:17 [Mass/vol on in AM ume] in source Serum or data Plasma Calcium 8.5 - mg/dL Low No April 11 [Mass/vol 10.1 informati 2017 6:17 ume] in on in AM Serum or source Plasma data Chloride 98 - 107 mmoL/L Normal No April 11 [Moles/vo informati 2016 6:17 lume] in on in AM Serum or source Plasma data Carbon 21.0 - mmoL/L Normal No April 11 dioxide, 32.0 informati 2017 6:17 total on in AM [Moles/vo source lume] in data Serum or Plasma Creatinin 0.55 - mg/dL Normal No April 11 e 1.02 informati 2016 6:17 [Mass/vol on in AM ume] in source Serum or data Plasma Creatinin 50 - 200 ML/MIN Normal No April 11 e renal informati 2016 6:17 clearance on in AM source predicted data by Cockcroft -Gault formula Estimated 59- ML/MIN No REFERENCE April 11 informati RANGE: 2017 6:17 glomerula on in >60 AM r source ML/MIN/1. filtratio data 73 SQUARE n rate METERSIf (GF this patient is -A merican, then multiply theresult by 1.210. Globulin 1.3 - 3.2 gm/dL High No April 11 [Mass/vol informati 2016 6:17 ume] in on in AM Serum source data Glucose 74 - 106 mg/dL High No April 11 [Mass/vol informati 2016 6:17 ume] in on in AM Serum or source Plasma data Potassium 3.5 - 5.1 mmoL/L Normal No April 11 informati 2016 6:17 [Moles/vo on in AM lume] in source Serum or data Plasma Sodium 136 - 145 mmoL/L Normal No April 11 [Moles/vo informati 2016 6:17 lume] in on in AM Serum or source Plasma data Aspartate 15 - 37 U/L Low No April 11 informati 2016 6:17 aminotran on in AM sferase source [Enzymati data c activity/ volume] in Serum or Plasma Alanine 12 - 78 U/L Normal No April 11 aminotran informati 2016 6:17 sferase on in AM [Enzymati source c data activity/ volume] in Serum or Plasma Protein 6.4 - 8.2 gm/dL Normal No April 11 [Mass/vol informati 2016 6:17 ume] in on in AM Serum or source Plasma data CBC W Auto Differential panel in Blood Observa Value Referen Units Interpr Notes Date tion ce etation Range COMMENTS TO MANAGER OF PHARMACY: 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 PT Basophils 0 - 0.2 K/MM3 Normal No April 11 informati 2016 6:17 [#/volume on in AM ] in source Blood by data Automated count Basophils 0.1 - 2.0 % Normal No April 11 informati 2016 6:17 leukocyte on in AM s in source Blood by data Automated count Eosinophi 0.0 - 0.4 K/mm3 Normal No April 11 ls informati 2016 6:17 [#/volume on in AM ] in source Blood by data Automated count Eosinophi 0.1 - % Normal No April 11 ls/100 12.0 informati 2016 6:17 leukocyte on in AM s in source Blood by data Automated count Granulocy 1.8 - 7.8 K/mm3 Normal No April 11 jayesh informati 2016 6:17 [#/volume on in AM ] in source Blood by data Automated count Granulocy 37.0 - % Normal No April 11 jayesh/100 80.0 informati 2016 6:17 leukocyte on in AM s in source Blood by data Automated count Hematocri 37.0 - % Normal No April 11 t [Volume 47.0 informati 2016 6:17 on in AM Fraction] source of Blood data Hemoglobi 12.2 - g/dL Normal No April 11 n 16.2 informati 2016 6:17 [Mass/vol on in AM ume] in source Blood data Lymphocyt 0.7 - 4.5 K/mm3 Normal No April 11 es informati 2016 6:17 [#/volume on in AM ] in source Unspecifi data ed specimen by Automated count Lymphocyt 10 - 50.0 % Normal No April 11 es informati 2016 6:17 [#/volume on in AM ] in source Unspecifi data ed specimen by Automated count Erythrocy 27 - 31.2 pg Normal No April 11 te mean informati 2016 6:17 corpuscul on in AM ar source hemoglobi data n [Entitic mass] Erythrocy 31.8 - g/dl Normal No April 11 te mean 35.4 informati 2016 6:17 corpuscul on in AM ar source hemoglobi data n concentra tion [Mass/vol ume] by Automated count Erythrocy 82.2 - fl Normal No April 11 te mean 97.8 informati 2016 6:17 corpuscul on in AM ar volume source [Entitic data volume] by Automated count Monocytes 0.1 - 1.0 K/mm3 Normal No April 11 informati 2016 6:17 [#/volume on in AM ] in source Blood by data Automated count Monocytes 1.7 - 9.3 % Normal No April 11 / informati 2016 6:17 leukocyte on in AM s in source Blood by data Automated count Platelet 7.4 - fl Low No April 11 mean 10.4 informati 2016 6:17 volume on in AM [Entitic source volume] data in Blood by Automated count Platelets 142 - 424 K/mm3 Normal No April 11 informati 2016 6:17 [#/volume on in AM ] in source Blood data Erythrocy 4.2 - 5.4 M/mm3 Low No April 11 jayesh informati 2016 6:17 [#/volume on in AM ] in source Amniotic data fluid Erythrocy 11.5 - % Normal No April 11 te 17.5 informati 2016 6:17 distribut on in AM ion width source [Entitic data volume] by Automated count Leukocyte 4.8 - K/MM3 Normal No April 11 s 10.8 informati 2016 6:17 [#/volume on in AM ] in source Blood data Basic metabolic panel in Blood Observa Value Referen Units Interpr Notes Date tion ce etation Range Urea 7 - 18 mg/dL Normal No April 10 nitrogen informati 2016 6:35 [Mass/vol on in AM ume] in source Serum or data Plasma Calcium 8.5 - mg/dL Normal No April 10 [Mass/vol 10.1 informati 2016 6:35 ume] in on in AM Serum or source Plasma data Chloride 98 - 107 mmoL/L Normal No April 10 [Moles/vo informati 2016 6:35 lume] in on in AM Serum or source Plasma data Carbon 21.0 - mmoL/L Normal No April 10 dioxide, 32.0 informati 2016 6:35 total on in AM [Moles/vo source lume] in data Serum or Plasma Creatinin 0.55 - mg/dL Normal No April 10 e 1.02 informati 2016 6:35 [Mass/vol on in AM ume] in source Serum or data Plasma Creatinin 50 - 200 ML/MIN Normal No April 10 e renal informati 2016 6:35 clearance on in AM source predicted data by Cockcroft -Gault formula Estimated 59- ML/MIN No REFERENCE April 10 informati RANGE: 2017 6:35 glomerula on in >60 AM r source ML/MIN/1. filtratio data 73 SQUARE n rate METERSIf (GF this patient is -A merican, then multiply theresult by 1.210. Glucose 74 - 106 mg/dL High No April 10 [Mass/vol informati 2016 6:35 ume] in on in AM Serum or source Plasma data Potassium 3.5 - 5.1 mmoL/L Normal No April 10 informati 2016 6:35 [Moles/vo on in AM lume] in source Serum or data Plasma Sodium 136 - 145 mmoL/L Normal No April 10 [Moles/vo informati 2016 6:35 lume] in on in AM Serum or source Plasma data Basic metabolic panel in Blood Observa Value Referen Units Interpr Notes Date tion ce etation Range Urea 7 - 18 mg/dL Normal No April 09 nitrogen informati 2016 4:00 [Mass/vol on in AM ume] in source Serum or data Plasma Calcium 8.5 - mg/dL Normal No April 09 [Mass/vol 10.1 informati 2016 4:00 ume] in on in AM Serum or source Plasma data Chloride 98 - 107 mmoL/L Normal No April 09 [Moles/vo informati 2016 4:00 lume] in on in AM Serum or source Plasma data Carbon 21.0 - mmoL/L Normal No April 09 dioxide, 32.0 informati 2016 4:00 total on in AM [Moles/vo source lume] in data Serum or Plasma Creatinin 0.55 - mg/dL No No April 09 e 1.02 informati informati 2016 4:00 [Mass/vol on in on in AM ume] in source source Serum or data data Plasma Creatinin 50 - 200 ML/MIN No No April 09 e renal informati informati 2016 4:00 clearance on in on in AM source source predicted data data by Cockcroft -Gault formula Estimated 59- ML/MIN No REFERENCE April 09 informati RANGE: 2017 4:00 glomerula on in >60 AM r source ML/MIN/1. filtratio data 73 SQUARE n rate METERSIf (GF this patient is -A merican, then multiply theresult by 1.210. Glucose 74 - 106 mg/dL High No April 09 [Mass/vol informati 2016 4:00 ume] in on in AM Serum or source Plasma data Potassium 3.5 - 5.1 mmoL/L Normal No April 09 informati 2016 4:00 [Moles/vo on in AM lume] in source Serum or data Plasma Sodium 136 - 145 mmoL/L Normal No April 09 [Moles/vo informati 2016 4:00 lume] in on in AM Serum or source Plasma data CBC W Auto Differential panel in Blood Observa Value Referen Units Interpr Notes Date tion ce etation Range Basophils 0 - 0.2 K/MM3 Normal No April 09 informati 2016 4:00 [#/volume on in AM ] in source Blood by data Automated count Basophils 0.1 - 2.0 % Normal No May 27 /100 informati 2016 4:00 leukocyte on in AM s in source Blood by data Automated count Eosinophi 0.0 - 0.4 K/mm3 Normal No April 09 ls informati 2016 4:00 [#/volume on in AM ] in source Blood by data Automated count Eosinophi 0.1 - % Normal No April 09 ls/100 12.0 informati 2016 4:00 leukocyte on in AM s in source Blood by data Automated count Granulocy 1.8 - 7.8 K/mm3 Normal No April 09 jayesh informati 2016 4:00 [#/volume on in AM ] in source Blood by data Automated count Granulocy 37.0 - % Normal No April 09 jayesh/100 80.0 informati 2016 4:00 leukocyte on in AM s in source Blood by data Automated count Hematocri 37.0 - % Normal No April 09 t [Volume 47.0 informati 2016 4:00 on in AM Fraction] source of Blood data Hemoglobi 12.2 - g/dL Normal No April 09 n 16.2 informati 2016 4:00 [Mass/vol on in AM ume] in source Blood data Lymphocyt 0.7 - 4.5 K/mm3 Normal No April 09 es informati 2016 4:00 [#/volume on in AM ] in source Unspecifi data ed specimen by Automated count Lymphocyt 10 - 50.0 % Normal No April 09 es informati 2016 4:00 [#/volume on in AM ] in source Unspecifi data ed specimen by Automated count Erythrocy 27 - 31.2 pg Normal No April 09 te mean informati 2016 4:00 corpuscul on in AM ar source hemoglobi data n [Entitic mass] Erythrocy 31.8 - g/dl Normal No April 09 te mean 35.4 informati 2016 4:00 corpuscul on in AM ar source hemoglobi data n concentra tion [Mass/vol ume] by Automated count Erythrocy 82.2 - fl Normal No April 09 te mean 97.8 informati 2016 4:00 corpuscul on in AM ar volume source [Entitic data volume] by Automated count Monocytes 0.1 - 1.0 K/mm3 Normal No April 09 informati 2016 4:00 [#/volume on in AM ] in source Blood by data Automated count Monocytes 1.7 - 9.3 % Normal No May 27 /100 informati 2016 4:00 leukocyte on in AM s in source Blood by data Automated count Platelet 7.4 - fl Low No April 09 mean 10.4 informati 2016 4:00 volume on in AM [Entitic source volume] data in Blood by Automated count Platelets 142 - 424 K/mm3 Normal No April 09 informati 2016 4:00 [#/volume on in AM ] in source Blood data Erythrocy 4.2 - 5.4 M/mm3 Low No April 09 jayesh informati 2016 4:00 [#/volume on in AM ] in source Amniotic data fluid Erythrocy 11.5 - % Normal No April 09 te 17.5 informati 2016 4:00 distribut on in AM ion width source [Entitic data volume] by Automated count Leukocyte 4.8 - K/MM3 Normal No April 09 s 10.8 informati 2016 4:00 [#/volume on in AM ] in source Blood data Urinalysis dipstick W Reflex Microscopic panel in Urine Observa Value Referen Units Interpr Notes Date tion ce etation Range Appeara CLEAR CLEAR No No No April 08 nce of informa informa informa 2016 Urine tion in tion in tion in 8:30 PM source source source data data data Bacteri 1+ O No No No April 08 a informa informa informa 2016 [Presen tion in tion in tion in 8:30 PM ce] in source source source Urine data data data sedimen t by Light microsc opy Bilirub NEGATIV NEG No No No April 08 in E informa informa informa 2016 [Presen tion in tion in tion in 8:30 PM ce] in source source source Urine data data data by Test strip Erythro NEGATIV NEG No No No April 08 cytes E informa informa informa 2016 [Presen tion in tion in tion in 8:30 PM ce] in source source source Urine data data data Color YELLOW YELLOW No No No April 08 of informa informa informa 2016 Urine tion in tion in tion in 8:30 PM source source source data data data Glucose NEG No No No April 08 [Mass/vol informati informati informati 2016 8:30 ume] in on in on in on in PM Urine by source source source Test data data data strip Ketones NEGATIV NEG mg/dL No No April 08 E informa informa 2016 [Presen tion in tion in 8:30 PM ce] in source source Urine data data by Automat ed test strip Mucus 2+ NEG No Abnorma No April 08 [Presen informa l inform2016 ce] in tion in tion in 8:30 PM Urine source source sedimen data data t by Light microsc opy Nitrite NEGATIV NEG No No No April 08 E informa informa informa 2016 [Presen tion in tion in tion in 8:30 PM ce] in source source source Urine data data data by Test strip pH of 5.0 - 8.5 No Normal No April 08 Urine informati informati 2016 8:30 on in on in PM source source data data Protein NEG mg/dL No No April 08 [Mass/vol informati informati 2016 8:30 ume] in on in on in PM Urine by source source Automated data data test strip Erythro 5-10 0 rbc/hpf No No April 08 cytes informa informa 2016 [Presen tion in tion in 8:30 PM ce] in source source Urine data data sedimen t by Light microsc opy Specific 1.005 - No Normal No April 08 gravity 1.030 informati informati 2016 8:30 of Urine on in on in PM source source data data Epithel 3-5 0 - 5 #/hpf No No April 08 ial informa informa 2016 cells.s tion in tion in 8:30 PM quamous source source data data [Presen ce] in Urine sedimen t by Microsc opy high power field Trichom 1+ NONE No No No April 08 onas sp informa informa informa 2016 tion in tion in tion in 8:30 PM [Presen source source source ce] in data data data Urine by Light microsc opy Urobili 0.2 NEG E.U./dL No No April 08 nogen informa informa 2016 [Presen tion in tion in 8:30 PM ce] in source source Urine data data by Test strip Leukocy [3 O wbc/hpf No No April 08 jayesh wbc/hpf informa informa 2016 [#/volu ; 5 tion in tion in 8:30 PM me] in wbc/hpf source source Urine ] data data Urinalysis dipstick W Reflex Microscopic panel in Urine Observa Value Referen Units Interpr Notes Date tion ce etation Range Appeara CLEAR CLEAR No No No April 08 nce of informa informa informa 2016 Urine tion in tion in tion in 8:30 PM source source source data data data Bilirub NEGATIV NEG No No No April 08 in E informa informa informa 2016 [Presen tion in tion in tion in 8:30 PM ce] in source source source Urine data data data by Test strip Erythro NEGATIV NEG No No No April 08 cytes E informa informa informa 2016 [Presen tion in tion in tion in 8:30 PM ce] in source source source Urine data data data Color YELLOW YELLOW No No No April 08 of informa informa informa 2016 Urine tion in tion in tion in 8:30 PM source source source data data data Glucose NEG No No No April 08 [Mass/vol informati informati informati 2016 8:30 ume] in on in on in on in PM Urine by source source source Test data data data strip Ketones NEGATIV NEG mg/dL No No April 08 E informa informa 2016 [Presen tion in tion in 8:30 PM ce] in source source Urine data data by Automat ed test strip Mucus 2+ NEG No Abnorma No April 08 [Presen informa l inform2016 ce] in tion in tion in 8:30 PM Urine source source sedimen data data t by Light microsc opy Nitrite NEGATIV NEG No No No April 08 E informa informa informa 2016 [Presen tion in tion in tion in 8:30 PM ce] in source source source Urine data data data by Test strip pH of 5.0 - 8.5 No Normal No April 08 Urine informati informati 2016 8:30 on in on in PM source source data data Protein NEG mg/dL No No April 08 [Mass/vol informati informati 2016 8:30 ume] in on in on in PM Urine by source source Automated data data test strip Specific 1.005 - No Normal No April 08 gravity 1.030 informati informati 2016 8:30 of Urine on in on in PM source source data data Urobili 0.2 NEG E.U./dL No No April 08 nogen informa informa 2016 [Presen tion in tion in 8:30 PM ce] in source source Urine data data by Test strip Thyroxine (T4) [Mass/volume] in Serum or Plasma Observa Value Referen Units Interpr Notes Date ti ce etation Range Thyroxine 4.7 - ug/dl Normal No April 08 (T4) 13.3 informati 2016 7:40 [Mass/vol on in PM ume] in source Serum or data Plasma Thyrotropin [Units/volume] in Serum or Plasma Observa Value Referen Units Interpr Notes Date ti ce etation Range Thyrotrop 0.358 - uIU/ml High No April 08 in 3.740 informati 2016 7:40 [Units/vo on in PM lume] in source Serum or data Plasma CBC W Auto Differential panel in Blood Observa Value Referen Units Interpr Notes Date ti ce etation Range Basophils 0 - 0.2 K/MM3 Normal No April 08 inform2016 7:40 [#/volume on in PM ] in source Blood by data Automated count Basophils 0.1 - 2.0 % Normal No April 08 informati 2016 7:40 leukocyte on in PM s in source Blood by data Automated count Eosinophi 0.0 - 0.4 K/mm3 Normal No April 08 ls informati 2016 7:40 [#/volume on in PM ] in source Blood by data Automated count Eosinophi 0.1 - % Normal No April 08 ls/100 12.0 informati 2016 7:40 leukocyte on in PM s in source Blood by data Automated count Granulocy 1.8 - 7.8 K/mm3 Normal No April 08 jayesh informati 2016 7:40 [#/volume on in PM ] in source Blood by data Automated count Granulocy 37.0 - % Normal No April 08 jayesh/100 80.0 informati 2016 7:40 leukocyte on in PM s in source Blood by data Automated count Hematocri 37.0 - % Normal No April 08 t [Volume 47.0 informati 2016 7:40 on in PM Fraction] source of Blood data Hemoglobi 12.2 - g/dL Normal No April 08 n 16.2 informati 2016 7:40 [Mass/vol on in PM ume] in source Blood data Lymphocyt 0.7 - 4.5 K/mm3 Normal No April 08 es informati 2016 7:40 [#/volume on in PM ] in source Unspecifi data ed specimen by Automated count Lymphocyt 10 - 50.0 % Normal No April 08 es informati 2016 7:40 [#/volume on in PM ] in source Unspecifi data ed specimen by Automated count Erythrocy 27 - 31.2 pg Normal No April 08 te mean informati 2016 7:40 corpuscul on in PM ar source hemoglobi data n [Entitic mass] Erythrocy 31.8 - g/dl Normal No April 08 te mean 35.4 informati 2016 7:40 corpuscul on in PM ar source hemoglobi data n concentra tion [Mass/vol ume] by Automated count Erythrocy 82.2 - fl Normal No April 08 te mean 97.8 informati 2016 7:40 corpuscul on in PM ar volume source [Entitic data volume] by Automated count Monocytes 0.1 - 1.0 K/mm3 Normal No April 08 informati 2016 7:40 [#/volume on in PM ] in source Blood by data Automated count Monocytes 1.7 - 9.3 % Normal No April 08 /100 informati 2016 7:40 leukocyte on in PM s in source Blood by data Automated count Platelet 7.4 - fl Low No April 08 mean 10.4 informati 2016 7:40 volume on in PM [Entitic source volume] data in Blood by Automated count Platelets 142 - 424 K/mm3 Normal No April 08 informati 2016 7:40 [#/volume on in PM ] in source Blood data Erythrocy 4.2 - 5.4 M/mm3 Low No April 08 jayesh informati 2016 7:40 [#/volume on in PM ] in source Amniotic data fluid Erythrocy 11.5 - % Normal No April 08 te 17.5 informati 2016 7:40 distribut on in PM ion width source [Entitic data volume] by Automated count Leukocyte 4.8 - K/MM3 Normal No April 08 s 10.8 informati 2016 7:40 [#/volume on in PM ] in source Blood data
--- OUTSIDE RECORDS SUMMARY | 2017-09-13 15:16 | External Medical Summary Rpt ---
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
[2017-09-13 15:41] LABS: HEMOGLOBIN 12.8 g/dL (12.2-16.2); LYMPH # 1.7 K/mm3 (0.7-4.5); LYMPH % 13.7 % (10-50.0)
--- NOTE | 2017-09-13 15:49 | Emergency Room Report ---
History of Present Illness Time Seen by MD Alejandra Presenting Problem in Triage Pt arrived:Walked Presenting Problem:SHORTNESS OF AIR, EDEMA Onset of symptoms date/time:09/04/17 or onset unknown for: Treatment Prior to Arrival: [employer] Provided by: Sepsis Risk Assessment: Temp: 98.4 B/P: 140/110 MAP: 120 Pulse: 68 Resp: 18 Recent fever? N Clinical Suspician of Infection? N Mental Status: 1 - Regular (Normal Baseline) Sepsis Risk:Low Sepsis Risk Have you (or family members/close friends) recently traveled outside the [place]? N If Yes, where/when: Have you had exposure to infectious disease within the past month? N TB? Other? Specify: Comment The patient complains of swelling for 1 week, worsening over the past couple of days, and shortness of breath. She has a prior history of atrial fibrillation and congestive heart failure. She is not on any diuretics. She says she has been on her feet a lot recently which she thinks has led to her symptoms. She is swelling in both of her feet and legs, hands, and abdomen. She also has a prior history of having a thoracentesis of her RIGHT lung when admitted to [facility] last year. She had rapid atrial fibrillation at that time as well. The patient used to see Dr. Costello, but he stopped accepting her insurance and she was assigned a physician at [facility]. ALLERGIES Coded Allergies: No Known Allergies (03/01/16) Home Medications Active Scripts Verapamil Hcl (Verapamil ER) 180 MG PO BID #60 TAB Ref 1 Prov: 04/11/17 Digoxin (Digox) 0.125 MG PO DAILY #30 TAB Ref 1 Prov: 04/11/17 Reported Medications Metoprolol Succinate (Metoprolol Succinate XL) 100 MG PO DAILY #30 Apixaban (Eliquis) 5 MG PO DAILY #30 Atorvastatin Calcium 40 MG PO DAILY #30 ASPIRIN (Aspirin) 81 MG PO DAILY History Medical History General CAD? No Angina: No MS: No Hypertension? Yes Hyperlipidemia? No CHF? No COPD? No Asthma? No Anemia? No Hernia? No Thyroid Problems? No Hypothyroidism? No CVA? No Seizures? No Diabetes? No End Stage Renal Disease? No UTI? No Stones? No GB Disease: No Nephritic Syndrome? No Asplenia? No Hepatitis? No Sickle Cell Disease? No Arthritis? No Cataracts? No Glaucoma? No MRSA? No TB? No Cancer? 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 [employer] Hx LMP menopause Family History Family Hx Diabetes Yes CAD No Hypertension Yes Hyperlipidemia Yes Cancer Yes TB No Social History Smoking Hx Smoker: Never Smoker Tobacco: No Alcohol Alcohol: No Review of Systems All Other Systems Reviewed and Negative Constitutional denies fever Respiratory shortness of breath Cardiovascular denies chest pain, edema, denies palpitations Physical Exam Vital Signs Vital Signs Date Time Temp Pulse Resp B/P Pulse O2 O2 Flow FiO2 Ox Delivery Rate 09/13 1831 138 09/13 183 98.5 138 20 131/98 09/13 183 95 ROOM AIR 09/13 1804 98.4 113 18 109/61 99 09/13 1730 154 18 130/88 98 09/13 1641 69 18 114/108 98 09/13 1506 98.4 68 18 140/110 98 General Appearance no apparent distress Eye Exam - bilateral eye normal exam, bilateral eye PERRL, bilateral eye EOMI Ear, Nose, Throat hearing grossly normal, normal ENT inspection Neck normal inspection, non-tender, supple, full range of motion Respiratory Status Yes: trachea midline, chest symmetrical. No: respiratory distress. Lung Sounds bilateral: normal breath sounds, lungs clear. Cardiovascular no gallop, no JVD, no murmur, no rub, normal peripheral pulses, tachycardia, irregularly irregular Peripheral Pulses Pulses normal Yes Gastrointestinal normal bowel sounds, normal exam, non tender, soft, no organomegaly Extremities 2-3+ pitting edema of feet and ankles. Mild edema of hands. Neurologic alert, normal exam, oriented x 3 Mental status normal mood/affect Skin intact, normal color, warm/dry Medical Decision Making LABS/Meds/Orders Pt receiving controlled substance in ED? No Results/Orders Laboratory Tests 09/13/17 1524: Sodium 140, Potassium 4.0, Chloride 107, Carbon Dioxide 22, BUN 17, Creatinine 1.1 H, Estimated Creat Clear 103, Estimated GFR (MDRD) 51 L, Glucose 177 H, Calcium 8.9, Total Bilirubin 0.6, AST 32, ALT 51, Alkaline Phosphatase 98, Creatine Kinase 72, CK-MB (CK-2) Rel Index 1.0, CK and CKMB Interp 0.7, Troponin I < 0.02, B-Natriuretic Peptide 846 H, Total Protein 7.2, Albumin 3.5, Globulin 3.7 H, Albumin/Globulin Ratio 0.9 L, WBC 12.1 H, RBC 4.44, Hgb 12.8, Hct 40.7 , MCV 91.8, RDW 14.9, Plt Count 313, MPV 8.6, Gran % 78.4, Gran # 9.5 H, Lymphocytes % 13.7, Monocytes % 6.4, Eosinophils % 1.2, Basophils % 0.3, Lymphocytes # 1.7, Monocytes # 0.8, Eosinophils # 0.2, Basophils # 0.0, PUBS MCHC 31.5 L, MCH 28.9, Digoxin < 0.20 L Current Medication Orders Sig/Keren Start time Last Medication Dose Route Stop Time Status Admin Furosemide 40 MG ONCE ONE 09/14 0700 UNV IV 09/14 07 Diltiazem HCl 100 MG .[id number] 09/13 1730 UNV Sodium Chloride 100 ML IV Influenza Virus 0.5 ML PRN PRN 09/13 1730 UNV Vaccine Quadrival IM Nicotine 21 MG DAILYP PRN 09/13 1730 UNV TD Sodium Chloride 10 ML PRN PRN 09/13 1730 UNV IV Diltiazem HCl 0 .STK-MED ONE 09/13 1619 DC IV Diltiazem HCl 100 MG ONCE ONE 09/13 1615 AC 09/13 Sodium Chloride 100 ML IV 09/14 0214 1632 Diltiazem HCl 10 MG ONCE ONE 09/13 1615 DC 09/13 IV 09/13 1616 1632 Furosemide 40 MG ONCE ONE 09/13 1600 DC 09/13 IV 09/13 1601 1606 Furosemide 0 .STK-MED ONE 09/13 1559 DC .ROUTE Sodium Chloride 10 ML PRN PRN 09/13 1530 AC IV 09/14 1525 Orders Procedure Date/time Status [id number] FAT/LO CHO/DEEPTHI 09/14 B Active BASIC METABOLIC PROFILE 09/14 0600 Active Decision to admit 09/13 1629 Active DIGOXIN 09/13 1547 Complete ELECTROCARDIOGRAM REQUEST 09/13 1545 Active IV SALINE LOCK 09/13 1526 Active CBC WITH AUTO DIFF 09/13 152 Complete CARDIAC ENZYMES 09/13 1526 Complete CHEM 12 PROFILE 09/13 152 Complete BRAIN NATRIURETIC PEPTIDE 09/13 1526 Complete ADMIT PATIENT 09/13 UNK Active 12 LEAD EKG-JAYLYN (INITIAL) 09/13 UNK Active PULSE OXIMETRY REQUEST 09/13 UNK Active OXYGEN REQUEST 09/13 UNK Active VITAL SIGNS 09/13 UNK Active MANAGER INFORMATION 09/13 UNK Active POM NURSE HARRISON HOSE ORDER 09/13 UNK Active IV SALINE LOCK 09/13 UNK Active RECORD I & O 09/13 UNK Active CODE STATUS 09/13 UNK Active PATIENT ACTIVITY ORDER 09/13 UNK Active PHYSICIANS CONSULT 09/13 UNK Active CM/EKG CM/EKG Comments EKG interpreted by Jason Ashford MD: Rhythm: Atrial fibrillation with rapid response Rate: 178 [place]: RIGHT Ectopy: none Conduction: normal ST Segment Changes: none T Wave Changes: none Q Waves: none No evidence of acute ischemia or injury Low voltage QRS XRAY/CT/US XRAY/CT/US XRAY chest Comment X-ray interpreted by radiologist: Mild congestive heart failure. Elevated RIGHT diaphragm. Vascular crowding versus atelectasis or infiltrate in the RIGHT perihilar area. Progress - 5:00 PM: Case discussed with Dr. Bowman. He will consult. No further treatment requested at this time. He knew Cardizem drip. No digoxin at this time. Departure Departure Disposition Still a Patient Clinical Impression Primary Impression: Rapid atrial fibrillation Secondary Impressions: Congestive heart failure Qualifiers: Congestive heart failure type: unspecified congestive heart failure type Congestive heart failure chronicity: acute Qualified Code: I50.9 - Heart failure, unspecified Condition STABLE ED Critical Care Critical Care Yes Time spent 30-74 min Vital system(s) involved: Circulatory Failure I was present at bedside for Coordinating pt's care, Interpreting EKGs/Strips , During my initial exam, Reviewing lab results, Reviewing old records, Discussing pt condition, Examining radiographs at 1844
--- NOTE | 2017-09-13 15:52 | RADIOLOGY REPORT PS360 ---
CHEST(2 VIEWS-NOT PORTABLE) HISTORY: Shortness of air, CHF, shortness of breath SOA ORDERING PHYSICIAN: Jason Ashford MD PATIENT AGE: 57 years COMPARISON: 04 08 17 FINDINGS: There is mild cardiomegaly with mild pulmonary venous congestion consistent with mild CHF. Increased markings are present in the right perihilar region and may be in part due to vascular crowding. The right hemidiaphragm is elevated accentuating these findings. Cannot exclude underlying infiltrate or atelectatic change. No acute bony anomalies. IMPRESSION: 1. Mild CHF. 2. Elevated right hemidiaphragm with vascular crowding versus atelectasis/infiltrate in right perihilar region
[2017-09-13 15:56] LABS: BUN 17 mg/dL (7-18); GFR (ESTIMATED) 51 ML/MIN (59-)
--- OUTSIDE RECORDS SUMMARY | 2017-09-13 16:35 | External Medical Summary Rpt | CCD ---
Author Author , YUAN Organization [facility] Address Unknown Phone [email or web address] Team Providers Care Gas Engine Operator Name Role Phone A Ilda CATHERINE MD PSC, Lucho Unavailable Unavailable Ilda CATHERINE MD PSC [employer] Unavailable Unavailable INC, [employer] Unavailable Unavailable INC, [employer] CHANCE, CHANCE Unavailable Unavailable LAUREN ORLIN, Unavailable Unavailable LAUREN ORLIN SANCHEZ ALL, SANCHEZ ALL Unavailable Unavailable PRABHAKAR BIRDIE, PRABHAKAR Unavailable Unavailable BIRDIE [facility] Unavailable Unavailable SERVICE, [facility] Unavailable Unavailable SERVICE, [facility] Unavailable Unavailable REHABILITATION, [facility] JOSE GUADALUPE CLEO, JOSE GUADALUPE Unavailable Unavailable CLEO ROLLY, ROLLY Unavailable Unavailable BROWNLEE NAN, BROWNLEE Unavailable Unavailable NAN LICHA, LICHA Unavailable [facility]available [facility] Un[facility], [facility] Unavailable Unavailable IM[facility]ING [facility], [facility] SPARK[facility] HORACIO, Unavailable Unavailable [facility] KOTTER MONA, KOTTER Unavailable Unavailable MONA [facility], [facility] Unavailable [facility]available [facility], Unavailable [facility]available [facility] JUNI JR, Unavailable Unavailable JUNI [...] NAN, STILES Unavailable Unavailable NAN ELMO BERENICE, LEMO Unavailable Unavailable [facility] Unavailable [facility]available ASSIST, [facility], Unavailable Unavailable [facility] Unavailable [facility]available [facility] EUN NATHAN, EUN Unavailable Unavailable NATHAN [facility] Unavailable Unavailable AGENCY, [facility] YOBANI BIRDIE, YOBANI Unavailable Unavailable BIRDIE JR BEAR CATHERINE, Unavailable Unavailable JR BEAR CATHERINEYA MAR, Unavailable Unavailable ZAVAZQUEZKAYA MAR Purpose Continuity of Care Document - 03-03-2015 through 2016 Problems Code Diagnosis DOS Provider Status [id number] UNILATERAL 04-20-2017 [place] [facility]OAR[facility]RI [facility] TIS RIGHT HIP [id number] UNS FX 04-20-2017 [place] [facility] SHAFT RT SERV [facility] SUBSQT ENC CLOS FX RTN [id number] UNS FX 04-20-2017 [facility] SUBSQT CLOS FX RTN HEAL I472 VENTRICULAR 04-09-2017 A Ilda CATHERINE MD PSC TACHYCARDIA I482 CHRONIC 04-09-2017 A Ilda CATHERINE ATRIAL PSC FIBRILLATIO N I4892 UNSPECIFIED 04-09-2017 A Ilda CATHERINE ATRIAL PSC FLUTTER I509 HEART 04-09-2017 A Ilda CATHERINE FAILURE PSC UNSPECIFIED E039 HYPOTHYROID 04-08-2017 [facility] UNSPEC[facility] I110 HYPERTENSIV 04-08-2017 [facility], DISEASE PLLC WITH HEART FAILURE I5043 ACUTE ON 04-08-2017 [facility] CHRONIC [facility], COMB PLLC SYSTOLIC & DIASTOLIC CHF R0600 DYSPNEA 04-08-2017 [facility] R0602 SHORTNESS 04-08-2017 [facility] J90 PLEURAL 10-27-2016 [place] [facility] EFFUSION SERV NOT FOUNDATION ELSEWHERE CLASSIFIED M151 HEBERDENS 10-27-2016 [place] [facility] NODES WITH SERV ARTHROPATHY FOUNDATION M159 POLYOSTEOAR 10-27-2016 [place] [facility] THRITIS SERV UNSPECIFIED FOUNDATION M6530 TRIGGER 10-27-2016 [place] [facility] FINGER SERV UNSPECIFIED FOUNDATION FINGER R768 OTH SPEC 10-27-2016 [place] [facility] ABNORMAL SERV IMMUNOLOGIC FOUNDATION AL FIND IN SERUM [id number] OTH FX 09-01-2016 [facility] FEMUR SUBSQT ENC CLOS FX RTN Z4789 ENCOUNTER 09-01-2016 [place] [facility] FOR OTHER SERV ORTHOPEDIC FOUNDATION AFTERCARE Z8781 PERSONAL 09-01-2016 [place] [facility] HISTORY OF SERV HEALED FOUNDATION TRAUMATIC FRACTURE M1711 UNILATERAL 08-16-2016 PATIENT PRIMARY AIDS INC OSTEOARTHRI TIS RIGHT KNEE [id number] OTH PHYSEAL 08-16-2016 PATIENT FX LOWER AIDS INC RT FEMUR INIT ENC CLOS FX [id number] OTH PHYSEAL 08-16-2016 PATIENT FX LOWER AIDS INC RT FEMUR SUBSQT FX RTN HEAL Z9181 HISTORY OF 08-16-2016 PATIENT FALLING AIDS INC M160 BILATERAL 07-28-2016 [place] [facility] TIS OF HIP M170 BILATERAL 07-28-2016 [place] [facility] TIS OF KNEE Z11297 PRIMARY 07-28-2016 [place] [facility] OSTEOARTHRI SERV TIS RIGHT FOUNDATION HAND M06129 PRIMARY 07-28-2016 [place] [facility] OSTEOARTHRI SERV TIS LEFT FOUNDATION HAND G44030 PRIMARY 07-28-2016 [facility] TIS RIGHT ANKLE AND FOOT L22679 PRIMARY 07-28-2016 [facility] TIS LEFT ANKLE AND FOOT Z0000 ENCOUNTER 07-28-2016 [facility] MED EXAM W/O ABNORMAL FIND [id number] DSPL SC FX 07-21-2016 [facility] W/O IC EXT HOSPITAL LOW RT FEM SUBS CLOS RTN R5907DE UNS FX RT 07-21-2016 [place] [facility] SERV SUBSQT ENC FOUNDATION CLOS FX RTN HEAL [id number] OTH [facility] 07-21-2016 [facility] COMP OTH PHYSICIANS BONE DEVC ASSIST IMPL GRAFT INIT ENC T81295D UNS 07-02-2016 [place] [facility] FRACTURE SERV SHAFT LT FOUNDATION TIBIA INIT ENC CLOS FX G06432L OTHER 07-02-2016 [facility] SHAFT LT TIBIA INIT ENC CLOS FX I340 NONRHEUMATI 05-26-2016 [place] [facility] C MITRAL SERV VALVE FOUNDATION INSUFFICIEN CY I361 NONRHEUMATI 05-26-2016 [place] [facility] C TRICUSPID SERV VALVE FOUNDATION INSUFFICIEN CY I4891 UNSPECIFIED 05-26-2016 [place] [facility]ICAL ATRIAL SERV FIBRILLATIO FOUNDATION N I517 CARDIOMEGAL 05-26-2016 [place] [facility] Y SERV FOUNDATION I5189 OTHER 05-26-2016 [place] [facility] ILL-DEFINED SERV HEART FOUNDATION DISEASES R001 BRADYCARDIA 05-26-2016 [place] [facility] UNSPECIFIED FOUNDATION R9431 ABNORMAL 05-26-2016 [place] [facility] ELECTROCARD SERV IOGRAM FOUNDATION I5021 ACUTE 05-25-2016 [place] [facility] SYSTOLIC SERV CONGESTIVE FOUNDATION HEART FAILURE I92552K FX UNS PART 05-25-2016 [place] [facility] NECK UNS SERV FEM[facility] FOUNDATION INITIAL ENC CLOS FX [id number] CONTUSION 05-23-2016 [place] [facility]ICAL OF LUNG SERV UNSPECIFIED FOUNDATION INITIAL ENCOUNTER J811 CHRONIC 05-22-2016 [place] [facility] PULMONARY SERV EDEMA FOUNDATION R0902 HYPOXEMIA 05-22-2016 [place] [facility] I288 OTHER 05-21-2016 [place] [facility] DISEASES OF SERV PULMONARY FOUNDATION VESSELS I348 OTHER 05-21-2016 [place] [facility]ICAL NONRHEUMATI SERV C MITRAL FOUNDATION VALVE DISORDERS I371 NONRHEUMATI 05-21-2016 [place] [facility] C PULMONARY SERV VALVE FOUNDATION INSUFFICIEN CY I501 LEFT 05-21-2016 [place] [facility] VENTRICULAR SERV FAILURE FOUNDATION UNSPECIFIED J984 OTHER 05-21-2016 [place] [facility] DISORDERS SERV OF LUNG FOUNDATION R600 LOCALIZED 05-21-2016 [place] [facility] EDEMA SERV FOUNDATION I480 PAROXYSMAL 05-20-2016 [place] [facility] ATRIAL SERV FIBRILLATIO FOUNDATION N I5020 UNSPECIFIED 05-20-2016 [place] [facility] SYSTOLIC SERV CONGESTIVE FOUNDATION HEART FAILURE J9601 ACUTE 05-20-2016 [place] [facility] RESPIRATORY SERV FAILURE FOUNDATION WITH HYPOXIA J9811 ATELECTASIS 05-20-2016 [place] [facility] R5381 OTHER 05-20-2016 [place] [facility] MALAISE SERV FOUNDATION R846 ABN 05-20-2016 [facility] FIND IN HOSPI SPEC RESP ORGN & THOR R918 OTHER 05-20-2016 [place] [facility] NONSPECIFIC SERV ABNORMAL FOUNDATION FINDING OF LUNG FIELD M6281 MUSCLE 05-14-2016 [facility] GENERALIZED AGENCY R2689 OTHER 05-14-2016 [facility] ABNORMALITI HEALTH ES OF GAIT AGENCY AND MOBILITY S50533S UNSPECIFIED 05-14-2016 [facility] FRACTURE HEALTH LOWER END AGENCY RT FEMUR SEQUELA D649 ANEMIA 03-15-2016 [place] [facility]ICAL UNSPECIFIED SERV FOUNDATION I10 ESSENTIAL 03-15-2016 [place] [facility] PRIMARY SERV HYPERTENSIO FOUNDATION N S37603 HEMIPLEGIA 03-15-2016 [place] [facility] FLW SERV CEREBRAL FOUNDATION INFARCT AFF LT NON-DOM R252 CRAMP AND 03-15-2016 [place] [facility] SPASM SERV FOUNDATION A499 BACTERIAL 03-13-2016 [place] [facility] INFECTION SERV UNSPECIFIED FOUNDATION G8918 OTHER ACUTE 03-13-2016 [place] [facility] SERV POSTPROCEDU FOUNDATION RAL PAIN N390 URINARY 03-13-2016 [place] [facility] TRACT SERV INFECTION FOUNDATION SITE NOT SPECIFIED E6601 MORBID 03-05-2016 [facility] [place] [facility] OB[facility] DUE REHABILITAT TO EXCESS ION CALORIES G479 SLEEP 03-05-2016 [facility] [place] [facility] UNSPECIFIED REHABILITAT ION K5900 CONSTIPATIO 03-05-2016 [facility] N [place] UNSPECIFIED REHABILITAT ION Z6842 BODY MASS 03-05-2016 [facility] INDEX BMI [place] 45.0-49.9 REHABILITAT ADULT ION M1990 UNSPECIFIED 03-02-2016 [facility] OSTEOARTHRI TIS UNSPECIFIED SITE O04685B DSPL SC FX 03-02-2016 [place] MEDICAL WITH IC EXT SERVICES LOW RT FEMUR INIT CLOS FX Z9889 OTHER 03-02-2016 [place] [facility] SPECIFIED SERV POSTPROCEDU FOUNDATION RAL STATES M179 OSTEOARTHRI 03-01-2016 [facility] UNSPECIFIED M2500 HEMARTHROSI 03-01-2016 [place] [facility]ICAL S SERV UNSPECIFIED FOUNDATION JOINT Y96574 PAIN IN 03-01-2016 [place] [facility] P36512 OSTEOPHYTE 03-01-2016 [place] [facility] RIGHT HIP SERV FOUNDATION A07624 OSTEOPHYTE 03-01-2016 [place] [facility] RIGHT KNEE SERV FOUNDATION J90976P UNS FX 03-01-2016 [place] [facility] SHAFT RT SERV [facility] FOUNDATION INITIAL ENC CLOS FRACTURE I29332K DSPL TRNS 03-01-2016 [facility] FX SHAFT RT TECHNOLOGIE FEMUR S INC INITIAL ENC CLOS FX S60716X UNS FX 03-01-2016 [place] [facility] LOWER RT SERV [facility] FOUNDATION INITIAL ENC CLOS FRACTURE B65466H OTH FX 03-01-2016 [facility] LOWER RT PHYSICIANS, FEMUR PLLC INITIAL ENC CLOS FX [id number] UNS 03-01-2016 [place] [facility] FRACTURE SERV UNS [facility]EMUR FOUNDATION INITIAL ENC CLOS FX W0512WD OTHER FALL 03-01-2016 [place] MEDICAL ON SAME SERV LEVEL FOUNDATION INITIAL ENCOUNTER A70QFPI UNSPECIFIED 03-01-2016 [facility] INITIAL SERVICE ENCOUNTER P10372 ENCOUNTER 03-01-2016 [place] [facility] FOR OTHER SERV PREPROCEDUR FOUNDATION AL EXAMINATION Z4689 ENCOUNTER 03-01-2016 [place] [facility] FITTING & SERV ADJUSTMENT FOUNDATION OT SPEC DEVICES 4019 UNSPECIFIED 03-03-2015 [facility] [place] N [address]837 UNSPECIFIED 03-03-2015 [facility]AL [facility] CARIES INC 5225 PERIAPICAL 03-03-2015 [facility]SCESS [facility] WITHOUT INC SINUS E03.9 HYPOTHYROID ISM, UNSPECIFIED I48.92 UNSPECIFIED ATRIAL FLUTTER I50.9 HEART FAILURE, UNSPECIFIED S72.401A UNSP FRACTURE OF LOWER END OF RIGHT FEMUR, INIT FOR CLOS FX Medications Na ND Rx Da Fi Fi [...] PA 20 8- 2- 00 01 ve NM 29 20 20 19 AI L 30 [...] 03 -2 -2 .0 00 TE ti MS 70 8- 2- 00 01 ve OL [...] PA 20 8- 8- 00 01 ve NM 29 20 20 19 AI L 30 [...] 03 -2 -1 .0 00 TE ti MS 70 8- 8- 00 01 ve OL [...] 03 -2 -2 .0 00 TE ti MS 70 8- 1- 00 01 ve OL 83 20 20 17 AI OL 20 17 17 25 D 1 05 PH FORD AR CC MA CY ER #3 10 93 0 8 MG TA B VE 68 06 07 60 30 00 RI Ac RA 46 -2 -2 .0 00 TE ti PA 20 8- 1- 00 01 ve NM 29 20 20 18 AI L 30 [...] PA 20 9- 3- 00 01 ve NM 29 20 20 18 AI L 30 17 17 59 D ER 1 30 PH AR 18 MA 0 CY MG #3 TA 93 BL 8 ET ME 62 02 03 30 30 00 RI Ac TO 03 -2 -1 .0 00 TE ti MS 70 3- 7- 00 01 ve OL [...] 03 -1 -0 .0 00 TE ti MS 70 2- 3- 00 01 ve OL 83 20 20 14 AI OL 20 17 17 87 D 1 69 PH FORD AR CC MA CY ER #3 10 93 0 8 MG TA B ME 62 12 01 30 30 00 RI Ac TO 03 -1 -0 .0 00 TE ti MS 70 3- 9- 00 01 ve OL [...] Microscopic panel in Urine (04-08-2017 20:30) Bacteri --2 1+ O complet a 017 ed [Presen 20:30 ce] in Urine sedimen t by Light microsc opy Erythro --2 5-10 0 complet cytes 017 ed [Presen 20:30 ce] in Urine sedimen t by Light microsc opy Epithel -26-2 3-5 0#/hp complet ial 017 f - ed cells.s 20:30 5#/hp quamous f [Presen ce] in Urine sedimen t by Microsc opy high power field Trichom 04-08-2 1+ NONE complet onas sp 017 ed 20:30 [Presen ce] in Urine by Light microsc opy Leukocy --2 3-5 O complet jayesh 017 wbc/hpf ed [...] complet of 017 ed Urine 20:30 Ketones --2 NEGATIV NEG complet 017 E ed [Presen 20:30 ce] in Urine by Automat ed test strip Mucus --2 2+ NEG Abnorma complet [Presen 017 l ed ce] in 20:30 Urine sedimen t by Light microsc opy Nitrite --2 NEGATIV NEG complet 017 E ed [Presen 20:30 ce] in Urine by Test strip Urobili 05--2 0.2 NEG complet nogen 017 ed [Presen 20:30 ce] in Urine by Test strip Procedures Procedure DOS Code Location Performer Comment RADIOLOGI 98797 [place] CHANCE C 7 MEDICAL EXAMINATI SERV ON FEMUR FOUNDATIO MINIMUM 2 N VIEWS SBSQ 16213 [facility] 7 DORENE HOWARD CARE/DAY PSC 25 MINUTES INITIAL 44927 [facility] 7 DORENE HOWARD CARE/DAY PSC 70 MINUTES RADIOLOGI 85294 [place] [facility] 7 MEDICAL EXAMINATI IMAGING ON CHEST ASS SINGLE VIEW FRONTAL RADIOLOGI 75159 [facility] 6 Y Y EXAMINATI [facility] ON FEMUR MINIMUM 2 VIEWS ELEVATING K0195 PATIENT PATIENT LEGREST 6 AIDS INC AIDS INC PAIR BOSTON DISPENSARY K0004 PATIENT PATIENT STRENGTH 6 AIDS INC AIDS INC LIGHTWEIG HT WHEELCHAI R HEPATITIS 19989 [facility] 6 Y Y ANTIBODY [facility] RADEX 05597 [facility] HAND 2 6 Y Y VIEWS [facility] HEPATITIS 82426 [facility] CORE 6 Y Y ANTIBODY [facility] [place] [address] [facility] 6 Y Y B [facility] SURFACE ANTIGEN RADEX 40286 [place] DELVIN WRIST 2 6 MEDICAL MYRA VIEWS SERV FOUNDATIO N RADEX 19504 [facility] FOOT 6 Y Y COMPLETE [facility] MINIMUM 3 VIEWS COLLECTIO 13741 [facility] VENOUS 6 Y Y BLOOD [facility] VENIPUNCT URE ANTINUCLE 28751 [facility] ALLIANCE 6 Y Y ANTIBODIE [facility] S CLAIRE RADIOLOGI 56228 [place] MONTGOMER C 6 MEDICAL Y JUS EXAMINATI SERV ON FEMUR FOUNDATIO MINIMUM 2 N VIEWS ELEVATING K0195 PATIENT PATIENT LEGREST 6 AIDS INC AIDS INC PAIR HIGH K0004 PATIENT PATIENT STRENGTH 6 AIDS INC AIDS INC LIGHTWEIG HT WHEELCHAI R DUP-SCAN 04218 [place] LAUREN XTR VEINS 6 MEDICAL ORLIN COMPLETE SERV FOUNDATIO BILATERAL N STUDY RADIOLOGI 01379 [facility] EXAM 6 Y Y CHEST 2 [...] AGENCY AGENCY SPICE SET EA 15 MIN DOPPLER 98363 [facility] ECHOCARD 6 MEDICAL MONA PULSE SERV WAVE FOUNDATIO W/SPECTRA N L DISPLAY ECG 47570 [facility] ROUTINE 6 MEDICAL NAN ECG SERV W/LEAST FOUNDATIO 12 LDS N I&R ONLY CARDIOVER 93204 [facility] ANNA 6 MEDICAL MONA ELECTIVE SERV ARRHYTHMI FOUNDATIO A N EXTERNAL ECHO 95748 [facility] TRANSESOP 6 MEDICAL MONA HAG R-T SERV 2D W/PRB FOUNDATIO IMG N ACQUISJ I&R DOP 43435 [facility] ECHOCARD 6 MEDICAL MONA COLOR SERV FLOW FOUNDATIO VELOCITY N MAPPING SBSQ 06323 [facility] 6 MEDICAL JACOBO CARE/DAY SERV [address] THORAX 81193 [facility] W/O 6 MEDICAL BIRDIE CONTRAST SERV MATERIAL FOUNDATIO N SBSQ 24351 [facility] 6 MEDICAL MONA CARE/DAY SERV 25 FOUNDATIO MINUTES N INITIAL 68635 [facility] INPATIENT 6 MEDICAL HORACIO CONSULT SERV NEW/ESTAB FOUNDATIO PT 55 N MIN SBSQ 22262 [facility] 6 MEDICAL SELAM CARE/DAY SERV 25 FOUNDATIO MINUTES N RADIOLOGI 50130 [place] YOBANI C 6 MEDICAL BIRDIE EXAMINATI SERV ON CHEST FOUNDATIO SINGLE N VIEW FRONTAL RADIOLOGI 43094 [place] PRABHAKAR C 6 MEDICAL BIRDIE EXAMINATI SERV ON CHEST FOUNDATIO SINGLE N VIEW FRONTAL SBSQ 70139 [place] [facility] 6 MEDICAL MONA CARE/DAY SERV 25 FOUNDATIO MINUTES N ECHO 80640 [place] [facility] R-T 6 MEDICAL 2D SERV W/WOM-MOD FOUNDATIO E COMPL N SPEC&COLR D RADIOLOGI 21054 [place] NICKELS C EXAM 6 MEDICAL DENISE CHEST 2 SERV VIEWS FOUNDATIO FRONTAL&L N ATERAL ECG 28007 [place] ERINN CHI ROUTINE 6 MEDICAL ECG SERV W/LEAST FOUNDATIO 12 LDS N I&R ONLY INITIAL 30549 [place] [facility] 6 MEDICAL SELAM CARE/DAY SERV 50 FOUNDATIO MINUTES N RADIOLOGI 35791 [place] MELIGUROADAK C 6 MEDICAL AYA MAR EXAMINATI SERV ON CHEST FOUNDATIO SINGLE N VIEW FRONTAL CYTP 64257 [facility] SL[facility] 6 Y OF HÉCTOR CELL [facility] [place] INTERP[place]CP[place] [address] [facility] SURG 6 Y OF HÉCTOR PATHOLOGY [facility] [place] [address] [place] NICK[facility] ANGIOGRAP 6 MEDICAL DENISE HY CHEST SERV W/CONTRAS FOUNDATIO T/NONCONT N RAST SERVICE G0151 [facility] 6 HOME [facility] AGENCY AGENCY TH/HOSP ICE EA 15 MIN LIGHTWEIG K0003 PATIENT [...] AGENCY HLTH/HOSP ICE EA 15 MIN RADIOLOGI 23955 [place] JULIANNA C 6 MEDICAL Y JUS [...] AGENCY AGENCY SPICE SET EA 15 MIN GENERAL E2601 PATIENT PATIENT WHLCHAIR 6 AIDS INC AIDS INC SEAT CUSHN WIDTH < 22 IN DEPTH WHLCHAIR E0978 PATIENT PATIENT ACSS PSTN 6 AIDS INC AIDS INC BELT/SFTY BELT/PELV STRAP EA LIGHTWEIG K0003 PATIENT PATIENT HT 6 AIDS INC AIDS INC [facility] 76335 [facility] 6 MEDICAL NAN DAY SERV MANAGEMEN FOUNDATIO T 30 N MIN/< WALKER E0143 PATIENT PATIENT FOLDING 6 AIDS INC AIDS INC WHEELED ADJUSTABL E/FIXED HEIGHT SBSQ 82435 [place] [address] MEDICAL NAN CARE/DAY SERV 25 FOUNDATIO MINUTES N SBSQ 01407 [place] [address] MEDICAL NAN CARE/DAY SERV 25 FOUNDATIO MINUTES N SBSQ 93514 [place] [address] MEDICAL NAN CARE/DAY SERV 25 FOUNDATIO MINUTES N SBSQ 02563 [place] [address] MEDICAL NAN CARE/DAY SERV 25 FOUNDATIO MINUTES N SBSQ 34647 [place] [address] MEDICAL NAN CARE/DAY SERV 25 FOUNDATIO MINUTES N SBSQ 40517 [place] [address] MEDICAL NAN CARE/DAY SERV 25 FOUNDATIO MINUTES N SBSQ 62563 [place] [address] MEDICAL NAN CARE/DAY SERV 25 FOUNDATIO MINUTES N SBSQ 53667 [place] [address] MEDICAL PETTY CARE/DAY SERV 25 FOUNDATIO MINUTES N SBSQ 33428 [place] [address] MEDICAL PETTY CARE/DAY SERV 25 FOUNDATIO MINUTES N INITIAL 24375 [place] [address] MEDICAL PETTY CARE/DAY SERV 50 FOUNDATIO MINUTES N REPOSITIO [id number] [facility] N RT LOW 6 Y [facility] INTRAMED IF DEVICE OPEN ANESTHESI 63661 [place] JOSE GUADALUPE A OPEN 6 MEDICAL CLEO PROCEDURE SERVICES S LOWER 1/3 [place] [address] [place] CATHERINE, FEMORAL 6 MEDICAL JR RAY SUPRACOND SERV YLAR FOUNDATIO FRACTURE N W/XTN RADIOLOGI 89890 [facility] ORDAZ C 6 MEDICAL EXAMINATI SERV ON FEMUR FOUNDATIO MINIMUM 2 N VIEWS RADIOLOGI 16348 [place] ELMO C 6 MEDICAL BERENICE EXAMINATI SERV ON FEMUR FOUNDATIO MINIMUM 2 N VIEWS RADIOLOGI 73678 [facility] S[facility] C 6 MEDICAL EXAMINATI IMAGING ON CHEST ASS SINGLE VIEW FRONTAL INJECTION J2405 JOSE G ARAIZA 6 MEM HOSP MEM HOSP ONDANSETR INC INC ON HCL PER 1 MG RADIOLOGI 02996 [facility] C 6 MEDICAL EXAMINATI IMAGING ON KNEE ASS 1/2 VIEWS RADIOLOGI 74076 LUZ ELMO C 6 MEDICAL BERENICE EXAMINATI SERV ON KNEE [address] LOWER 80545 LUZ EUN EXTREMITY 6 MEDICAL NATHAN W/O SERV CONTRAST FOUNDATIO MATERIAL N RADEX HIP 32811 [facility] ELMO 6 MEDICAL BERENICE UNILATERA SERV L WITH FOUNDATIO PELVIS N 2-3 VIEWS RADIOLOGI 11363 LU[facility] ELMO [place] 6 MEDICAL BERENICE EXAMINATI SERV ON TIBIA FOUNDATIO & FIBULA N 2 VIEWS ECG 44282 [facility] ERINN CHI ROUTINE 6 MEDICAL ECG SERV W/LEAST FOUNDATIO 12 LDS N I&R ONLY THER 23937 JOSE G ARAIZA PROPH/DX 6 MEM HOS[facility]OS[facility] NJX IV INC INC PUSH SINGLE/1S T SBST/DRUG GROUND A0425 [facility] 6 AMBULANCE AMBULANCE PER SERVICE SERVICE STATUTE MILE KNEE L1830 [facility] 6 TECHNOLOG TECHNOLOG IMMOBLIZE IES INC IES INC R CANVAS LONGTUDNL PREFAB AMBULANCE A0429 [facility] SERVICE 6 AMBULANCE AMBULANCE BLS SERVICE SERVICE EMERGENCY TRANSPORT THERAPEUT 26866 JOSE G ARAIZA IC 6 MEM HOS[facility] MEM HOSP INJECTION INC INC IV PUSH EACH NEW DRUG THERAPEUT 47187 JOSE G ARAIZA IC 5 [facility]OS[facility] PROPHYLAC INC INC TIC/DX INJECTION SUBQ/IM Encounters Encounter Start End Date Code Location Performer Type Date OFFICE 19283 OUTPATIEN 7 7 [facility] T VISIT 5 E [facility]UTES [facility] OUTPATIEN E T [facility] 56529 [facility] DEPT 7 7 PHYSICIAN VISIT S, PLLC HIGH SEVERITY& THREAT [facility] JOSE G - 7 7 MEM HOS[facility] INPATIENT INC OFFICE 94064 [place] JUNI [facility] 6 6 MEDICAL JR T VISIT SERV 25 FOUNDATIO MINUTES N OFFICE 72813 [place] [facility] 6 MEDICAL JR RAY T VISIT SERV 15 FOUNDATIO MINUTES [facility] UNIVERSIT - 6 6 Y [facility] T OFFICE 10881 [facility] 6 6 Y T VISIT 5 [facility] UNIVERSIT - 6 6 Y [facility] T OFFICE 32729 [place] DAR KRI CONSULTAT 6 6 MEDICAL ION SERV NEW/ESTAB FOUNDATIO PATIENT N 40 MIN OFFICE 26542 [facility] 6 6 [place] MARIAA T VISIT PHYSICIAN 25 S [facility] UNIVERSIT - 6 6 Y [facility] T OFFICE 46324 [facility] 6 6 Y T VISIT 5 [facility] UNIVERSIT - 6 6 Y [facility] T OFFICE 55186 [place] RUIZ [facility] 6 6 MEDICAL JAM T VISIT SERV 25 FOUNDATIO MINUTES [facility] UNIVERSIT - 6 6 Y [facility] T OFFICE 01337 [facility] T VISIT REHAB[facility]IT 10 ATION MINUTES OFFICE 18258 [place] MEERA [facility] 6 6 MEDICAL NAN T VISIT SERV 25 FOUNDATIO MINUTES N EMERGENCY 30182 [place] ANGELIKA DEPT 6 6 MEDICAL FERNANDO VISIT SERV HIGH FOUNDATIO SEVERITY& N THREAT [facility] - [facility], 6 6 HOME INPATIENT HEALTH [facility] UNIVERSIT - 6 6 Y [facility] T OFFICE 54000 [facility] 6 6 Y T VISIT 5 [facility], 6 6 HOME INPATIENT HEALTH [facility], 6 6 HOME INPATIENT HEALTH [facility] 6 6 Y [facility] T OFFICE [id number] [facility] 6 6 Y T [facility]ISIT 5 [facility] - 6 6 [facility] - 6 6 Y [facility]PATIENT HOSPITAL EMERGENCY [id number] JOSE G DEPT 6 6 [facility] VISIT INC HIGH SEVERITY& THREAT FUNCJ EMERGENCY [id number] ZOE SEVILLA 6 6 [facility] VISIT MODERATE SEVERITY EMERGENCY [id number] JOSE G 5 5 [facility] DEPARTMEN [facility] T VISIT LOW/MODER SEVERITY HOSPITAL JOSE G - 5 5 [facility] OUTPATIEN INC T
--- OUTSIDE RECORDS SUMMARY | 2017-09-13 16:35 | External Medical Summary Rpt | CCD ---
Author Author , YUAN Organization [facility] Address Unknown Phone [email or web address] Health Care Team Providers Care Consulting Actuary Name Role Phone A Ilda CATHERINE MD [facility], Lucho Unavailable Unavailable Ilda CATHERINE MD PSC [employer] Unavailable Unavailable INC, [employer] Unavailable Unavailable INC, [employer] CHANCE, CHANCE Unavailable Unavailable LAUREN ORLIN, Unavailable Unavailable LAUREN ORLIN SANCHEZ ALL, SANCHEZ ALL Unavailable Unavailable PRABHAKAR BIRDIE, PRABHAKAR Unavailable Unavailable BIRDIE [facility] Unavailable Unavailable SERVICE, [facility] Unavailable Unavailable SERVICE, [facility] Unavailable Unavailable REHABILITATION, [facility] JOSE GUADALUPE CLEO, JOSE GUADALUPE Unavailable Unavailable CLEO ROLLY, ROLLY Unavailable Unavailable BROWNLEE NAN, BROWNLEE Unavailable Unavailable NAN LICHA, LICHA Unavailable Unavailable [facility], [facility] Unavailable Unavailable IM[facility]ING [facility], [facility] SPARK[facility] H[facility]ACIO, Unavailable Unavailable [facility] KOTTER MONA, KOTTER Unavailable Unavailable MONA [facility], [facility] Un[facility]available [facility], Unavailable Unavailable [facility] JUNI JR, Unavailable Unavailable JUNI [...] [facility] Unavailable Un[facility]PITALS, [facility] Unavailable Unavailable ASSIST, [facility], Unavailable Unavailable [facility] Unavailable [facility]available [facility] EUN NATHAN, EUN Unavailable Unavailable NATHAN [facility] Unavailable Unavailable AGENCY, [facility] YOBANI BIRDIE, YOBANI Unavailable Unavailable BIRDIE JR BEAR CATHERINE, Unavailable Unavailable JR BEAR CATHERINEYA MAR, Unavailable Unavailable ZAVAZQUEZKAYA MAR Purpose Continuity of Care Document - 03-03-2015 through 2016 Problems Code Diagnosis DOS Provider Status [id number] UNILATERAL 04-20-2017 [facility] TIS RIGHT HIP [id number] UNS FX 04-20-2017 [facility] SHAFT RT SERV [facility] SUBSQT ENC CLOS FX RTN [id number] UNS FX 04-20-2017 [facility] SUBSQT CLOS FX RTN HEAL I472 VENTRICULAR 04-09-2017 A Ilda CATHERINE MD PSC TACHYCARDIA I482 CHRONIC 04-09-2017 A Ilda CATHERINE ATRIAL PSC FIBRILLATIO N I4892 UNSPECIFIED 04-09-2017 A Ilda CATHERINE ATRIAL PSC FLUTTER I509 HEART 04-09-2017 A Ilda CATHERINE FAILURE PSC UNSPECIFIED E039 HYPOTHYROID 04-08-2017 [facility] UNSPECIFIED INC I110 HYPERTENSIV 04-08-2017 [facility], DISEASE PLLC WITH HEART FAILURE I5043 ACUTE ON 04-08-2017 [facility] CHRONIC PHYSICIANS, COMB PLLC SYSTOLIC & DIASTOLIC CHF R0600 DYSPNEA 04-08-2017 [facility] R0602 SHORTNESS 04-08-2017 [facility]ATH [facility] J90 PLEURAL 10-27-2016 [facility] EFFUSION SERV NOT FOUNDATION ELSEWHERE CLASSIFIED M151 HEBERDENS 10-27-2016 [facility] NODES WITH SERV ARTHROPATHY FOUNDATION M159 POLYOSTEOAR 10-27-2016 [facility] THRITIS SERV UNSPECIFIED FOUNDATION M6530 TRIGGER 10-27-2016 [facility] FINGER SERV UNSPECIFIED FOUNDATION FINGER R768 OTH SPEC 10-27-2016 [place] [facility] ABNORMAL SERV IMMUNOLOGIC FOUNDATION AL FIND IN SERUM [id number] OTH FX 09-01-2016 [facility] FEMUR SUBSQT ENC CLOS FX RTN Z4789 ENCOUNTER 09-01-2016 [facility] FOR OTHER SERV ORTHOPEDIC FOUNDATION AFTERCARE Z8781 PERSONAL 09-01-2016 [place] [facility] HISTORY OF SERV HEALED FOUNDATION TRAUMATIC FRACTURE M1711 UNILATERAL 08-16-2016 PATIENT PRIMARY AIDS INC OSTEOARTHRI TIS RIGHT KNEE [id number] OTH PHYSEAL 08-16-2016 PATIENT FX LOWER AIDS INC RT FEMUR INIT ENC CLOS FX [id number] OTH PHYSEAL 08-16-2016 PATIENT FX LOWER AIDS INC RT FEMUR SUBSQT FX RTN HEAL Z9181 HISTORY OF 08-16-2016 PATIENT FALLING AIDS INC M160 BILATERAL 07-28-2016 [facility] TIS OF HIP M170 BILATERAL 07-28-2016 [facility] TIS OF KNEE C80236 PRIMARY 07-28-2016 [facility]STEO[facility] SERV TIS RIGHT FOUNDATION HAND E84450 PRIMARY 07-28-2016 [facility]STEO[facility] SERV TIS LEFT FOUNDATION HAND B48938 PRIMARY 07-28-2016 [facility] TIS RIGHT ANKLE AND FOOT K10495 PRIMARY 07-28-2016 [facility] TIS LEFT ANKLE AND FOOT Z0000 ENCOUNTER 07-28-2016 [facility] MED EXAM W/O ABNORMAL FIND [id number] DSPL SC FX 07-21-2016 [facility] W/O IC EXT HOSPITAL LOW RT FEM SUBS CLOS RTN [id number] UNS FX RT 07-21-2016 [facility] SERV SUBSQT ENC FOUNDATION CLOS FX RTN HEAL [id number] OTH [facility] 07-21-2016 [facility] COMP OTH PHYSICIANS BONE DEVC ASSIST IMPL GRAFT INIT ENC Z45200C UNS 07-02-2016 [facility] FRACTURE SERV SHAFT LT FOUNDATION TIBIA INIT ENC CLOS FX [id number] OTHER 07-02-2016 [facility] SHAFT LT TIBIA INIT ENC CLOS FX I340 NONRHEUMATI 05-26-2016 [facility] C MITRAL SERV VALVE FOUNDATION INSUFFICIEN CY I361 NONRHEUMATI 05-26-2016 [facility] C TRICUSPID SERV VALVE FOUNDATION INSUFFICIEN CY I4891 UNSPECIFIED 05-26-2016 [facility] ATRIAL SERV FIBRILLATIO FOUNDATION N I517 CARDIOMEGAL 05-26-2016 [facility] Y SERV [facility] I5189 OTHER 05-26-2016 [facility] ILL-DEFINED SERV HEART FOUNDATION DISEASES R001 BRADYCARDIA 05-26-2016 [facility] UNSPECIFIED FOUNDATION R9431 ABNORMAL 05-26-2016 [place] [facility] ELECTROCARD SERV IOGRAM [facility] I5021 ACUTE 05-25-2016 [facility] SYSTOLIC SERV CONGESTIVE FOUNDATION HEART FAILURE [id number] FX UNS PART 05-25-2016 [facility] NECK UNS SERV [facility]OUNDATION INITIAL ENC CLOS FX [id number] CONTUSION 05-23-2016 [facility] OF LUNG SERV UNSPECIFIED FOUNDATION INITIAL ENCOUNTER J811 CHRONIC 05-22-2016 [facility] PULMONARY SERV EDEMA FOUNDATION R0902 HYPOXEMIA 05-22-2016 [facility] I288 OTHER 05-21-2016 [place] [facility] DISEASES OF SERV PULMONARY FOUNDATION VESSELS I348 OTHER 05-21-2016 [place] [facility] NONRHEUMATI SERV C MITRAL FOUNDATION VALVE DISORDERS I371 NONRHEUMATI 05-21-2016 [place] [facility] C PULMONARY SERV VALVE FOUNDATION INSUFFICIEN CY I501 LEFT 05-21-2016 [place] [facility] VENTRICULAR SERV FAILURE FOUNDATION UNSPECIFIED J984 OTHER 05-21-2016 [place] [facility] DISORDERS SERV OF LUNG FOUNDATION R600 LOCALIZED 05-21-2016 [place] [facility] EDEMA SERV F[facility] I480 PAROXYSMAL 05-20-2016 [place] [facility] ATRIAL SERV FIBRILLATIO FOUNDATION N I5020 UNSPECIFIED 05-20-2016 [place] [facility] SYSTOLIC SERV CONGESTIVE FOUNDATION HEART FAILURE J9601 ACUTE 05-20-2016 [place] [facility] RESPIRATORY SERV FAILURE FOUNDATION WITH HYPOXIA J9811 ATELECTASIS 05-20-2016 [place] [facility] R5381 OTHER 05-20-2016 [place] [facility] MALAISE SERV [facility] R846 ABN 05-20-2016 [facility] FIND IN HOSPI SPEC RESP ORGN & THOR R918 OTHER 05-20-2016 [place] [facility] NONSPECIFIC SERV ABNORMAL FOUNDATION FINDING OF LUNG FIELD M6281 MUSCLE 05-14-2016 [facility] GENERALIZED AGENCY R2689 OTHER 05-14-2016 [facility] ABNORMALITI [facility] ES OF GAIT AGENCY AND MOBILITY M46439N UNSPECIFIED 05-14-2016 [facility] FRACTURE HEALTH LOWER END AGENCY RT FEMUR SEQUELA D649 ANEMIA 03-15-2016 [place] [facility] UNSPECIFIED SERV FOUNDATION I10 ESSENTIAL 03-15-2016 [place] [facility] PRIMARY SERV HYPERTENSIO FOUNDATION N L53969 HEMIPLEGIA 03-15-2016 [place] [facility] FLW SERV CEREBRAL FOUNDATION INFARCT AFF LT NON-DOM R252 CRAMP AND 03-15-2016 [place] [facility] SPASM SERV [facility] A499 BACTERIAL 03-13-2016 [place] [facility] INFECTION SERV UNSPECIFIED FOUNDATION G8918 OTHER ACUTE 03-13-2016 [facility] SERV POSTPROCEDU [facility]OUND[facility] RAL PAIN N390 URINARY 03-13-2016 [place] [facility] TRACT SERV INFECTION [facility] SITE NOT SPECIFIED E6601 MORBID 03-05-2016 [facility] DUE REHABILITAT TO EXCESS ION CALORIES G479 SLEEP 03-05-2016 [facility] UNSPECIFIED REHABILITAT ION K5900 CONSTIPATIO 03-05-2016 [facility] [place] [facility] UNSPECIFIED REHABILITAT ION Z6842 BODY MASS 03-05-2016 [facility] INDEX BMI [place] 45.0-49.9 REHABILITAT ADULT ION M1990 UNSPECIFIED 03-02-2016 [facility] OSTEOARTHRI TIS UNSPECIFIED SITE [id number] DSPL SC FX 03-02-2016 [facility] WITH IC EXT SERVICES LOW RT FEMUR INIT CLOS FX Z9889 OTHER 03-02-2016 [place] [facility] SPECIFIED SERV POSTPROCEDU FOUNDATION RAL STATES M179 OSTEOARTHRI 03-01-2016 [facility] UNSPECIFIED M2500 HEMARTHROSI 03-01-2016 [place] [facility] S SERV UNSPECIFIED FOUNDATION JOINT Z79588 PAIN IN 03-01-2016 [facility] RIGHT [facility] MEDICAL IMAGING ASS A18987 OSTEOPHYTE 03-01-2016 [facility] RIGHT HIP SERV FOUNDATION W64342 OSTEOPHYTE 03-01-2016 [place] [facility] RIGHT KNEE SERV FOUNDATION O99865F UNS FX 03-01-2016 [place] [facility] SHAFT RT SERV [facility]OUND[facility] INITIAL ENC CLOS FRACTURE T33047F DSPL TRNS 03-01-2016 [facility] FX SHAFT RT TECHNOLOGIE FEMUR S INC INITIAL ENC CLOS FX B36051N UNS FX 03-01-2016 [place] [facility] LOWER RT SERV [facility] INITIAL ENC CLOS FRACTURE O12274F OTH FX 03-01-2016 [facility] LOWER RT PHYSICIANS, [facility] PLLC INITIAL ENC CLOS FX L4742AI UNS 03-01-2016 [place] [facility] FRACTURE SERV UNS [facility]EMUR FOUNDATION INITIAL ENC CLOS FX E1164YD OTHER FALL 03-01-2016 [facility] ON SAME SERV LEVEL FOUNDATION INITIAL ENCOUNTER [id number] UNSPECIFIED 03-01-2016 [facility] INITIAL SERVICE ENCOUNTER O76176 ENCOUNTER 03-01-2016 [facility] FOR OTHER SERV PREPROCEDUR FOUNDATION AL EXAMINATION Z4689 ENCOUNTER 03-01-2016 [facility] FITTING & SERV ADJUSTMENT FOUNDATION OT SPEC DEVICES 4019 UNSPECIFIED 03-03-2015 [facility] [place] N 64715 UNSPECIFIED 03-03-2015 [facility] DENTAL [facility] [...] PA 20 8- 2- 00 01 ve OK 29 20 20 19 AI L 30 [...] 03 -2 -2 .0 00 TE ti SD 70 8- 2- 00 01 ve OL [...] PA 20 8- 8- 00 01 ve OK 29 20 20 19 AI L 30 [...] 03 -2 -1 .0 00 TE ti SD 70 8- 8- 00 01 ve OL [...] 03 -2 -2 .0 00 TE ti SD 70 8- 1- 00 01 ve OL 83 20 20 17 AI OL 20 17 17 25 D 1 05 PH FORD AR CC MA CY ER #3 10 93 0 8 MG TA B VE 68 06 07 60 30 00 RI Ac RA 46 -2 -2 .0 00 TE ti PA 20 8- 1- 00 01 ve OK 29 20 20 18 AI L 30 [...] PA 20 9- 3- 00 01 ve OK 29 20 20 18 AI L 30 17 17 59 D ER 1 30 PH AR 18 MA 0 CY MG #3 TA 93 BL 8 ET ME 62 02 03 30 30 00 RI Ac TO 03 -2 -1 .0 00 TE ti SD 70 3- 7- 00 01 ve OL [...] 03 -1 -0 .0 00 TE ti SD 70 2- 3- 00 01 ve OL 83 20 20 14 AI OL 20 17 17 87 D 1 69 PH FORD AR CC MA CY ER #3 10 93 0 8 MG TA B ME 62 12 01 30 30 00 RI Ac TO 03 -1 -0 .0 00 TE ti SD 70 3- 9- 00 01 ve OL [...] Procedure DOS Code Location Performer Comment RADIOLOGI 02913 [place] CHANCE C 7 MEDICAL EXAMINATI SERV ON FEMUR FOUNDATIO MINIMUM 2 N VIEWS SBSQ 24864 A [facility] 7 DORENE HOWARD CARE/DAY PSC 25 MINUTES INITIAL 03533 [facility] 7 DORENE HOWARD CARE/DAY PSC 70 MINUTES RADIOLOGI 49541 [facility] ROLLY C 7 MEDICAL EXAMINATI IMAGING ON CHEST ASS SINGLE VIEW FRONTAL RADIOLOGI 59113 [facility] 6 Y Y EXAMINATI [facility] ON FEMUR MINIMUM 2 VIEWS ELEVATING K0195 PATIENT PATIENT LEGREST 6 AIDS INC AIDS INC [facility] K0004 PATIENT PATIENT STRENGTH 6 AIDS INC AIDS INC [place] HT WHEELCHAI R HEPATITIS 60073 [facility] 6 Y Y ANTIBODY [facility] RADEX 18303 [facility] HAND 2 6 Y Y VIEWS [facility] HEPATITIS 07727 [facility] CORE 6 Y Y ANTIBODY [facility] [place] [address] [facility] 6 Y Y B [facility] SURFACE ANTIGEN RADEX 63047 [place] DELVIN WRIST 2 6 MEDICAL MYRA VIEWS SERV FOUNDATIO N RADEX 77016 [facility] FOOT 6 Y Y COMPLETE [facility] MINIMUM 3 VIEWS COLLECTIO 81574 [facility] VENOUS 6 Y Y BLOOD [facility] VENIPUNCT URE ANTINUCLE 99631 [facility] 6 Y Y ANTIBODIE [facility] S CLAIRE RADIOLOGI 16146 [place] MONTGOMER C 6 MEDICAL Y JUS EXAMINATI SERV ON FEMUR FOUNDATIO MINIMUM 2 N VIEWS ELEVATING K0195 PATIENT PATIENT LEGREST 6 AIDS INC AIDS INC [facility] K0004 PATIENT PATIENT STRENGTH 6 AIDS INC AIDS INC [place] HT WHEELCHAI R DUP-SCAN 28353 [place] LAUREN XTR VEINS 6 MEDICAL ORLIN COMPLETE SERV FOUNDATIO BILATERAL N STUDY RADIOLOGI 19939 [facility] EXAM 6 Y Y CHEST [...] AGENCY SPICE SET EA 15 MIN DOPPLER 57492 [facility] 6 MEDICAL MONA PULSE SERV WAVE FOUNDATIO W/SPECTRA N L DISPLAY ECG 84781 [facility] ROUTINE 6 MEDICAL NAN ECG SERV W/LEAST FOUNDATIO 12 LDS N I&R ONLY CARDIOVER 85863 [facility] ANNA 6 MEDICAL MONA ELECTIVE SERV ARRHYTHMI FOUNDATIO A N EXTERNAL ECHO 07020 [facility] TRANSESOP 6 MEDICAL MONA HAG R-T SERV 2D W/PRB FOUNDATIO IMG N ACQUISJ I&R DOP 95950 [facility] 6 MEDICAL MONA COLOR SERV FLOW FOUNDATIO VELOCITY N MAPPING SBSQ 41851 [facility] 6 MEDICAL JACOBO CARE/DAY SERV [address] THORAX 06310 [facility] W/O 6 MEDICAL BIRDIE CONTRAST SERV MATERIAL FOUNDATIO N SBSQ 36304 [facility] 6 MEDICAL MONA CARE/DAY SERV 25 FOUNDATIO MINUTES N INITIAL 28188 [facility] INPATIENT 6 MEDICAL HORACIO CONSULT SERV NEW/ESTAB FOUNDATIO PT 55 N MIN SBSQ 20400 [facility] 6 MEDICAL SELAM CARE/DAY SERV 25 FOUNDATIO MINUTES N RADIOLOGI 55603 [place] YOBANI C 6 MEDICAL BIRDIE EXAMINATI SERV ON CHEST FOUNDATIO SINGLE N VIEW FRONTAL RADIOLOGI 13082 [place] PRABHAKAR C 6 MEDICAL BIRDIE EXAMINATI SERV ON CHEST FOUNDATIO SINGLE N VIEW FRONTAL SBSQ 89020 [facility] 6 MEDICAL MONA CARE/DAY SERV 25 FOUNDATIO MINUTES N ECHO 06737 [place] [facility] R-T 6 MEDICAL 2D SERV W/WOM-MOD FOUNDATIO E COMPL N SPEC&COLR D RADIOLOGI 62450 [place] NICKELS C EXAM 6 MEDICAL DENISE CHEST 2 SERV VIEWS FOUNDATIO FRONTAL&L N ATERAL ECG 58219 [place] ERINN CHI ROUTINE 6 MEDICAL ECG SERV W/LEAST FOUNDATIO 12 LDS N I&R ONLY INITIAL 76613 [facility] 6 MEDICAL SELAM CARE/DAY SERV 50 FOUNDATIO MINUTES N RADIOLOGI 46297 [place] MELIGUROADAK C 6 MEDICAL AYA MAR EXAMINATI SERV ON CHEST FOUNDATIO SINGLE N VIEW FRONTAL CYTP 29676 [facility] SL[facility] 6 Y OF HÉCTOR CELL [facility] NT INTERP[place] XCP[place] C/[place] [address] [facility] SURG 6 Y OF HÉCTOR PATHOLOGY [facility] [place] [address] [place] NICKELS ANGIOGRAP 6 MEDICAL DENISE HY [...] AGENCY HLTH/HOSP ICE EA 15 MIN RADIOLOGI 79285 [place] JULIANNA C 6 MEDICAL Y JUS [...] PATIENT HT 6 AIDS INC AIDS INC [facility] [address] [facility] 6 MEDICAL NAN DAY SERV MANAGEMEN FOUNDATIO T 30 N MIN/< WALKER E0143 PATIENT PATIENT FOLDING 6 AIDS INC AIDS INC WHEELED ADJUSTABL E/FIXED HEIGHT SBSQ 33664 [place] [address] MEDICAL NAN CARE/DAY SERV 25 FOUNDATIO MINUTES N SBSQ 02704 [place] [address] MEDICAL NAN CARE/DAY SERV 25 FOUNDATIO MINUTES N SBSQ 47239 [place] [address] MEDICAL NAN CARE/DAY SERV 25 FOUNDATIO MINUTES N SBSQ 43601 [place] [address] MEDICAL NAN CARE/DAY SERV 25 FOUNDATIO MINUTES N SBSQ 02691 [place] [address] MEDICAL NAN CARE/DAY SERV 25 FOUNDATIO MINUTES N SBSQ 52834 [place] [address] MEDICAL NAN CARE/DAY SERV 25 FOUNDATIO MINUTES N SBSQ 24623 [place] [address] MEDICAL NAN CARE/DAY SERV 25 FOUNDATIO MINUTES N SBSQ 36639 [place] [address] MEDICAL PETTY CARE/DAY SERV 25 FOUNDATIO MINUTES N SBSQ 40531 [place] [address] MEDICAL PETTY CARE/DAY SERV 25 FOUNDATIO MINUTES N INITIAL 56503 [place] [address] MEDICAL PETTY CARE/DAY SERV 50 FOUNDATIO MINUTES N REPOSITIO [id number] [facility] N RT LOW 6 Y [facility] INTRAMED IF DEVICE OPEN ANESTHESI 26323 [place] JOSE GUADALUPE A OPEN 6 MEDICAL CLEO PROCEDURE SERVICES S LOWER 1/3 [place] [address] [place] CATHERINE, FEMORAL 6 MEDICAL JR RAY SUPRACOND SERV YLAR FOUNDATIO FRACTURE N W/XTN RADIOLOGI 80412 [facility] ORDAZ C 6 MEDICAL EXAMINATI SERV ON FEMUR FOUNDATIO MINIMUM 2 N VIEWS RADIOLOGI 69325 [place] ELMO C 6 MEDICAL BERENICE EXAMINATI SERV ON FEMUR FOUNDATIO MINIMUM 2 N VIEWS RADIOLOGI 71391 [facility] 6 MEDICAL EXAMINATI IMAGING ON CHEST ASS SINGLE VIEW FRONTAL INJECTION J2405 JOSE G ARAIZA 6 MEM HOSP MEM HOSP ONDANSETR INC INC ON HCL PER 1 MG RADIOLOGI 88563 [facility] C 6 MEDICAL EXAMINATI IMAGING ON KNEE ASS 1/2 VIEWS RADIOLOGI 06783 [facility] ELMO C 6 MEDICAL BERENICE EXAMINATI SERV ON KNEE [address] LOWER 52532 [facility] EUN EXTREMITY 6 MEDICAL NATHAN W/O SERV CONTRAST FOUNDATIO MATERIAL N RADEX HIP 52564 [facility] ELMO 6 MEDICAL BERENICE UNILATERA SERV L WITH FOUNDATIO PELVIS N 2-3 VIEWS RADIOLOGI 22323 [facility] ELMO [place] 6 MEDICAL BERENICE EXAMINATI SERV ON TIBIA FOUNDATIO & FIBULA N 2 VIEWS ECG 64501 [facility] ERINN CHI ROUTINE 6 MEDICAL ECG SERV W/LEAST FOUNDATIO 12 LDS N I&R ONLY THER 96548 JOSE G ARAIZA PROPH/DX 6 [facility] HOS[facility]OS[facility] NJX IV INC INC PUSH SINGLE/1S T SBST/DRUG GROUND A0425 [facility] 6 AMBULANCE AMBULANCE PER SERVICE SERVICE STATUTE MILE KNEE L1830 [facility] 6 TECHNOLOG TECHNOLOG IMMOBLIZE IES INC IES INC R CANVAS LONGTUDNL PREFAB AMBULANCE A0429 [facility] SERVICE 6 AMBULANCE AMBULANCE BLS SERVICE SERVICE EMERGENCY TRANSPORT THERAPEUT 25390 JOSE G ARAIZA IC 6 MEM HOS[facility] INJECTION INC INC IV PUSH EACH NEW DRUG THERAPEUT 48657 JOSE G ARAIZA IC 5 [facility] PROPHYLAC INC INC TIC/DX INJECTION SUBQ/IM Encounters Encounter Start End Date Code Location Performer Type Date OFFICE 95709 OUTPATIEN 7 7 [facility] T VISIT 5 E [facility]ES [facility] 7 [facility] OUTPATIEN E T [facility]ALS EMERGENCY 87961 ZOE HRUT DEPT 7 7 PHYSICIAN VISIT S, PLLC HIGH SEVERITY& THREAT [facility] JOSE G - 7 7 [facility] INPATIENT INC OFFICE 18379 [place] [facility] 6 MEDICAL JR T VISIT SERV 25 FOUNDATIO MINUTES N OFFICE 84954 [place] [facility] 6 6 MEDICAL JR RAY T VISIT SERV 15 FOUNDATIO MINUTES [facility] UNIVERSIT - 6 6 Y [facility] T OFFICE 89090 [facility] 6 6 Y T VISIT 5 [facility] UNIVERSIT - 6 6 Y [facility] T OFFICE 92268 [place] DAR KRI CONSULTAT 6 6 MEDICAL ION SERV NEW/ESTAB FOUNDATIO PATIENT N 40 MIN OFFICE 30326 [facility] 6 6 [place] MARIAA T VISIT PHYSICIAN 25 S [facility] UNIVERSIT - 6 6 Y [facility] T OFFICE 21422 [facility] 6 6 Y T VISIT 5 [facility] UNIVERSIT - 6 6 Y [facility] T OFFICE 86937 [place] RUIZ [facility] 6 6 MEDICAL JAM T VISIT SERV 25 FOUNDATIO MINUTES [facility] UNIVERSIT - 6 6 Y [facility] T OFFICE 18096 [facility] 6 [facility] T VISIT REHABILIT 10 ATION MINUTES OFFICE 30858 [place] MEERA [facility] 6 6 MEDICAL NAN T VISIT SERV 25 FOUNDATIO MINUTES N EMERGENCY 83506 [place] ANGELIKA DEPT 6 6 MEDICAL FERNANDO VISIT SERV HIGH FOUNDATIO SEVERITY& N THREAT [facility] - [facility], 6 6 HOME INPATIENT HEALTH [facility] UNIVERSIT - 6 6 Y [facility] T OFFICE 46264 [facility] 6 6 Y T VISIT 5 [facility], 6 6 HOME INPATIENT HEALTH [facility], 6 6 HOME INPATIENT HEALTH [facility] UNIVERSIT - 6 6 Y [facility] T OFFICE 88769 [facility] 6 6 Y T VISIT 5 [facility] CARDINAL - 6 6 [facility] UNIVERSIT - 6 6 Y INPATIENT HOSPITAL EMERGENCY 79092 JOSE G DEPT 6 6 MEM HOSP VISIT INC HIGH SEVERITY& THREAT FUNCJ EMERGENCY 28710 ZOE SEVILLA 6 6 [facility]YSIC[facility] V[facility] MODERATE SEVERITY EMERGENCY 75753 JOSE G 5 5 [facility] DEPARTMEN INC T VISIT LOW/MODER SEVERITY HOSPITAL JOSE G - 5 5 [facility] OUTPATIEN INC T
--- OUTSIDE RECORDS SUMMARY | 2017-09-13 16:39 | External Medical Summary Rpt | CCD ---
Author Author , YUAN Organization YUAN Address Unknown Phone [email or web address] Care Team Providers Care High Energy Forming Equipment Operator Name Role Phone A Ilda CATHERINE MD PSC, Lucho Unavailable Unavailable Ilda CATHERINE MD PSC [employer] Unavailable Unavailable INC, [employer] Unavailable Unavailable INC, [employer] CHANCE, CHANCE Unavailable Unavailable LAUREN ORLIN, Unavailable Unavailable LAUREN ORLIN SANCHEZ ALL, SANCHEZ ALL Unavailable Unavailable PRABHAKAR BIRDIE, PRABHAKAR Unavailable Unavailable [facility] Unavailable Unavailable SERVICE, [facility]available Unavailable SERVICE, [facility] Unavailable Unavailable REHABILITATION, [facility] JOSE GUADALUPE CLEO, JOSE GUADALUPE Unavailable Unavailable CLEO ROLLY, ROLLY Unavailable Unavailable BROWNLEE NAN, BROWNLEE Unavailable Unavailable NAN LICHA, LICHA Unavailable Unavailable [facility] Un[facility] Unavailable [facility], [facility] Un[facility], [facility] SPARKLE HORACIO, Unavailable Unavailable [facility] KOTTER MONA, KOTTER Unavailable Unavailable MONA [facility], [facility] Un[facility]available [facility], Unavailable [...] [facility] Unavailable [facility]available Unavailable ASSIST, [facility], Unavailable [facility]available [facility] Unavailable [place] [facility], [facility] EUN NATHAN, EUN Unavailable Unavailable NATHAN [facility] Unavailable Unavailable AGENCY, [facility] YOBANI BIRDIE, YOBANI Unavailable Unavailable BIRDIE JR BEAR CATHERINE, Unavailable Unavailable JR BEAR CATHERINE MAR, Unavailable Unavailable RON MAR Purpose Continuity of Care Document - 03-03-2015 through 2016 Problems Code Diagnosis DOS Provider Status [id number] UNILATERAL 04-20-2017 [facility] TIS RIGHT HIP [id number] UNS FX 04-20-2017 [place] [facility] SHAFT [facility] F[facility] SUBSQT ENC CLOS FX RTN [id number] UNS FX 04-20-2017 [facility] SUBSQT CLOS FX RTN HEAL I472 VENTRICULAR 04-09-2017 A Ilda CATHERINE MD PSC TACHYCARDIA I482 CHRONIC 04-09-2017 A Ilda CATHERINE ATRIAL PSC FIBRILLATIO N I4892 UNSPECIFIED 04-09-2017 A Ilda CATHERINE ATRIAL PSC FLUTTER I509 HEART 04-09-2017 A Ilda CATHERINE FAILURE PSC UNSPECIFIED E039 HYPOTHYROID 04-08-2017 [facility] I110 HYPERTENSIV 04-08-2017 [facility], DISEASE PLLC WITH HEART FAILURE I5043 ACUTE ON 04-08-2017 [facility]RON[facility], COMB PLLC SYSTOLIC & DIASTOLIC CHF R0600 DYSPNEA 04-08-2017 [place] [facility] R0602 SHORTNESS 04-08-2017 [place] OF [facility] J90 PLEURAL 10-27-2016 [facility] EFFUSION [facility] NOT FOUND[facility] ELSEWHERE CLASSIFIED M151 HEBERDENS 10-27-2016 [facility] NOD[facility] WITH SERV ARTHROPATHY F[facility] M159 POLYOSTEOAR 10-27-2016 [place] [facility] THRITIS SERV UNSPECIFIED FOUNDATION M6530 TRIGGER 10-27-2016 [facility] FINGER [facility] UNSPECIFIED FOUNDATION FINGER R768 OTH SPEC 10-27-2016 [place] [facility] ABNORMAL SERV IMMUNOLOGIC FOUNDATION AL FIND IN SERUM [id number] OTH FX 09-01-2016 [facility] SUBSQT ENC CLOS FX RTN Z4789 ENCOUNTER 09-01-2016 [facility] FOR OTHER SERV ORTHOPEDIC F[facility] AFTERCARE Z8781 PERSONAL 09-01-2016 [place] [facility] HISTORY OF SERV HEALED [facility]OUND[facility] TRAUMATIC FRACTURE M1711 UNILATERAL 08-16-2016 PATIENT PRIMARY AIDS INC OSTEOARTHRI TIS RIGHT KNEE [id number] OTH PHYSEAL 08-16-2016 PATIENT FX LOWER AIDS INC RT FEMUR INIT ENC CLOS FX [id number] OTH PHYSEAL 08-16-2016 PATIENT FX LOWER AIDS INC RT FEMUR SUBSQT FX RTN HEAL Z9181 HISTORY OF 08-16-2016 PATIENT FALLING AIDS INC M160 BILATERAL 07-28-2016 [facility] TIS OF HIP M170 BILATERAL 07-28-2016 [facility] TIS OF KNEE I68590 PRIMARY 07-28-2016 [facility] SERV TIS RIGHT FOUNDATION HAND J64198 PRIMARY 07-28-2016 [facility] TIS LEFT FOUNDATION HAND U74311 PRIMARY 07-28-2016 [facility] TIS RIGHT ANKLE AND FOOT Z63358 PRIMARY 07-28-2016 [facility] TIS LEFT ANKLE AND FOOT Z0000 ENCOUNTER 07-28-2016 [facility] MED EXAM W/O ABNORMAL FIND I64716Y DSPL SC FX 07-21-2016 [facility] W/O IC EXT HOSPITAL LOW RT FEM SUBS CLOS RTN E6387OC UNS FX RT 07-21-2016 [facility] SUBSQT ENC FOUNDATION CLOS FX RTN HEAL X62880Q [facility] 07-21-[address] [facility] COMP OTH PHYSICIANS BONE DEVC ASSIST IMPL GRAFT INIT ENC S74458P UNS 07-02-2016 [place] [facility] FRACTURE SERV SHAFT LT FOUNDATION TIBIA INIT ENC CLOS FX F83235N OTHER 07-02-2016 [facility] SHAFT LT TIBIA INIT ENC CLOS FX I340 NONRHEUMATI 05-26-2016 [facility] MITRAL SERV VALVE FOUNDATION INSUFFICIEN CY I361 NONRHEUMATI 05-26-2016 [facility] TRICUSPID SERV VALVE [facility]OUNDATION INSUFFICIEN CY I4891 UNSPECIFIED 05-26-2016 [facility] ATRIAL SERV FIBRILLATIO FOUNDATION N I517 CARDIOMEGAL 05-26-2016 [facility] Y SERV [facility] I5189 OTHER 05-26-2016 [facility] ILL-DEFINED SERV HEART [facility]OUNDATION DISEASES R001 BRADYCARDIA 05-26-2016 [facility] UNSPECIFIED [facility]ATION R9431 ABNORMAL 05-26-2016 [facility] ELECTROCARD SERV IOGRAM [facility] I5021 ACUTE 05-25-2016 [facility] SYSTOLIC SERV CONGESTIVE FOUNDATION HEART FAILURE H46469Z FX UNS PART 05-25-2016 [facility] NECK UNS SERV FEM[facility] INITIAL ENC CLOS FX P70546D CONTUSION 05-23-2016 [facility] OF LUNG SERV UNSPECIFIED FOUNDATION INITIAL ENCOUNTER J811 CHRONIC 05-22-2016 [facility] PULMONARY SERV EDEMA F[facility] R0902 HYPOXEMIA 05-22-2016 [place] [facility] I288 OTHER 05-21-2016 [facility] DISEASES OF SERV PULMONARY FOUNDATION VESSELS I348 OTHER 05-21-2016 [facility] NONRHEUMATI SERV C MITRAL FOUNDATION VALVE DISORDERS I371 NONRHEUMATI 05-21-2016 [facility] C PULMONARY SERV VALVE FOUNDATION INSUFFICIEN CY I501 LEFT 05-21-2016 [facility] VENTRICULAR SERV FAILURE FOUNDATION UNSPECIFIED J984 OTHER 05-21-2016 [place] [facility] DISORDERS SERV OF LUNG FOUNDATION R600 LOCALIZED 05-21-2016 [facility] EDEMA SERV [facility] I480 PAROXYSMAL 05-20-2016 [facility] ATRIAL SERV FIBRILLATIO FOUNDATION N I5020 UNSPECIFIED 05-20-2016 [facility] SYSTOLIC SERV CONGESTIVE FOUNDATION HEART FAILURE J9601 ACUTE 05-20-2016 [facility]PIRATORY SERV FAILURE [facility] WITH HYPOXIA J9811 ATELECTASIS 05-20-2016 [place] [facility] R5381 OTHER 05-20-2016 [facility] MALAISE SERV [facility] R846 ABN 05-20-2016 [facility] FIND IN HOSPI SPEC RESP ORGN & THOR R918 OTHER 05-20-2016 [place] [facility] NONSPECIFIC SERV ABNORMAL FOUNDATION FINDING OF LUNG FIELD M6281 MUSCLE 05-14-2016 [facility] GENERALIZED AGENCY R2689 OTHER 05-14-2016 [facility] ABNORMALITI [facility] ES OF GAIT AGENCY AND MOBILITY R37395T UNSPECIFIED 05-14-2016 [facility] FRACTURE HEALTH LOWER END AGENCY RT FEMUR SEQUELA D649 ANEMIA 03-15-2016 [place] [facility] UNSPECIFIED SERV F[facility]ATION I10 ESSENTIAL 03-15-2016 [facility] HYPERTENSIO FOUNDATION N C56673 HEMIPLEGIA 03-15-2016 [facility] FLW [facility] CEREBRAL [facility] INFARCT AFF LT NON-DOM R252 CRAMP AND 03-15-2016 [facility] SPASM [facility] A499 BACTERIAL 03-13-2016 [facility] INFECTION [facility] UNSPECIFIED FOUNDATION G8918 OTHER ACUTE 03-13-2016 [facility] POSTPROCEDU [facility] RAL PAIN N390 URINARY 03-13-2016 [facility] TRACT [facility] INFECTION [facility] SITE NOT SPECIFIED E6601 MORBID 03-05-2016 [facility] [place] OBESITY DUE REHABILITAT TO EXCESS ION CALORIES G479 SLEEP 03-05-2016 [facility] [place]ORDER [place] UNSPECIFIED REHABILITAT ION K5900 CONSTIPATIO 03-05-2016 [facility] [place] UNSPECIFIED REHABILITAT ION Z6842 BODY MASS 03-05-2016 [facility] INDEX BMI WRIGHT 45.0-49.9 REHABILITAT ADULT ION M1990 UNSPECIFIED 03-02-2016 [facility] OSTEOARTHRI TIS UNSPECIFIED SITE J35769U DSPL SC FX 03-02-2016 [facility] WITH IC EXT SERVICES LOW RT FEMUR INIT CLOS FX Z9889 OTHER 03-02-2016 [place] [facility] SPECIFIED SERV POSTPROCEDU FOUNDATION RAL STATES M179 OSTEOARTHRI 03-01-2016 [facility] UNSPECIFIED M2500 HEMARTHROSI 03-01-2016 [place] [facility] S SERV UNSPECIFIED FOUNDATION JOINT Y34364 PAIN IN 03-01-2016 [place] RIGHT [facility] IM[facility]ING ASS V24312 OSTEOPHYTE 03-01-2016 [place] [facility] RIGHT HIP SERV [facility] G91547 OSTEOPHYTE 03-01-2016 [facility] RIGHT KNEE SERV FOUNDATION B35232N UNS FX 03-01-2016 [place] [facility] SHAFT RT SERV FEM[facility] INITIAL ENC CLOS FRACTURE G00661Q DSPL TRNS 03-01-2016 [facility] FX SHAFT RT TECHNOLOGIE FEMUR S INC INITIAL ENC CLOS FX M90674X UNS FX 03-01-2016 [facility] SERV FEM[facility] INITIAL ENC CLOS FRACTURE J73479Z OTH FX 03-01-2016 [facility], FEMUR PLLC INITIAL ENC CLOS FX Y8678GI UNS 03-01-2016 [facility] FRACTURE SERV UNS FEMUR FOUNDATION INITIAL ENC CLOS FX P4445JI OTHER FALL 03-01-2016 [facility] ON SAME SERV LEVEL FOUNDATION INITIAL ENCOUNTER O76QEQP UNSPECIFIED 03-01-2016 [facility] INITIAL SERVICE ENCOUNTER V24562 ENCOUNTER 03-01-2016 [facility] FOR OTHER SERV PREPROCEDUR FOUNDATION AL EXAMINATION Z4689 ENCOUNTER 03-01-2016 [facility] FITTING & SERV ADJUSTMENT [facility]ATION OTH SPEC DEVICES 4019 UNSPECIFIED 03-03-2015 [facility] [place] N [address] UNSPECIFIED 03-03-2015 [facility] [...] PA 20 8- 2- 00 01 ve NH 29 20 20 19 AI L 30 [...] 03 -2 -2 .0 00 TE ti VA 70 8- 2- 00 01 ve OL [...] PA 20 8- 8- 00 01 ve NH 29 20 20 19 AI L 30 [...] 03 -2 -1 .0 00 TE ti VA 70 8- 8- 00 01 ve OL [...] 03 -2 -2 .0 00 TE ti VA 70 8- 1- 00 01 ve OL 83 20 20 17 AI OL 20 17 17 25 D 1 05 PH FORD AR CC MA CY ER #3 10 93 0 8 MG TA B VE 68 06 07 60 30 00 RI Ac RA 46 -2 -2 .0 00 TE ti PA 20 8- 1- 00 01 ve NH 29 20 20 18 AI L 30 [...] PA 20 9- 3- 00 01 ve NH 29 20 20 18 AI L 30 17 17 59 D ER 1 30 PH AR 18 MA 0 CY MG #3 TA 93 BL 8 ET ME 62 02 03 30 30 00 RI Ac TO 03 -2 -1 .0 00 TE ti VA 70 3- 7- 00 01 ve OL [...] 03 -1 -0 .0 00 TE ti VA 70 2- 3- 00 01 ve OL 83 20 20 14 AI OL 20 17 17 87 D 1 69 PH FORD AR CC MA CY ER #3 10 93 0 8 MG TA B ME 62 12 01 30 30 00 RI Ac TO 03 -1 -0 .0 00 TE ti VA 70 3- 9- 00 01 ve OL [...] Procedure DOS Code Location Performer Comment RADIOLOGI 31767 [facility] Gonsales 7 MEDICAL EXAMINATI SERV ON FEMUR FOUNDATIO MINIMUM 2 N VIEWS SBSQ 47742 [facility] 7 DORENE HOWARD CARE/DAY PSC 25 MINUTES INITIAL 05529 [facility] 7 DORENE HOWARD CARE/DAY PSC 70 MINUTES RADIOLOGI 83408 [place] ROLLY C 7 MEDICAL EXAMINATI IMAGING ON CHEST ASS SINGLE VIEW FRONTAL RADIOLOGI 44100 [facility] 6 Y Y EXAMINATI [facility] ON FEMUR MINIMUM 2 VIEWS HIGH K0004 PATIENT PATIENT STRENGTH 6 AIDS INC AIDS INC LIGHTWEIG HT WHEELCHAI R ELEVATING K0195 PATIENT PATIENT LEGREST 6 AIDS INC AIDS INC PAIR RADEX 92878 [facility] FOOT 6 Y Y [facility]TE [facility]PITAL HOSPITAL MINIMUM 3 VIEWS RADEX 08069 [facility] HAND 2 6 Y Y VIEWS [facility] HEPATITIS 57271 [facility] CORE 6 Y Y ANTIBODY [facility] [place] [address] [facility] 6 Y Y B [facility] SURFACE ANTIGEN COLLECTIO 07734 [facility] VENOUS 6 Y Y BLOOD [facility] VENIPUNCT URE RADEX 23189 [place] DELVIN WRIST 2 6 MEDICAL MYRA VIEWS SERV FOUNDATIO N HEPATITIS 92858 [facility] 6 Y Y ANTIBODY HOSPITAL [facility] ANTINUCLE 69561 [facility] 6 Y Y ANTIBODIE [facility] RADIOLOGI 96428 [place] MONTG[place] C 6 MEDICAL Y JUS EXAMINATI SERV ON FEMUR FOUNDATIO MINIMUM 2 N VIEWS HIGH K0004 PATIENT PATIENT STRENGTH 6 AIDS INC AIDS INC LIGHTWEIG HT WHEELCHAI R ELEVATING K0195 PATIENT PATIENT LEGREST 6 AIDS INC AIDS INC PAIR DUP-SCAN 24327 [place] LAUREN XTR VEINS 6 MEDICAL ORLIN COMPLETE SERV FOUNDATIO BILATERAL N STUDY RADIOLOGI 43963 [facility] EXAM 6 Y Y CHEST 2 HOSPITAL [...] AGENCY AGENCY SPICE SET EA 15 MIN ECG 51678 [facility] ROUTINE 6 MEDICAL NAN ECG SERV W/LEAST FOUNDATIO 12 LDS N I&R ONLY CARDIOVER 91409 [facility] ANNA 6 [facility]ICAL [facility]IAG[facility]STIC INSTITUTE ELECTIVE SERV ARRHYTHMI FOUNDATIO A N EXTERNAL ECHO 33746 [facility] TRANSESOP 6 MEDICAL NEURODIAGNOSTIC INSTITUTE HAG R-T SERV 2D W/PRB FOUNDATIO IMG N ACQUISJ I&R DOP 42898 [facility] ECHOCARD 6 MEDICAL NEURODIAGNOSTIC INSTITUTE COLOR SERV FLOW FOUNDATIO VELOCITY N MAPPING DOPPLER 20228 [facility] ECHOCARD 6 [facility]ICAL [facility]URODIAGNOSTIC INSTITUTE PULSE SERV WAVE FOUNDATIO W/SPECTRA N L DISPLAY SBSQ 79097 [facility] 6 MEDICAL JACOBO CARE/DAY SERV [address] THORAX 34864 [facility] W/O 6 MEDICAL BIRDIE CONTRAST SERV MATERIAL FOUNDATIO N SBSQ 48502 [place] [address] MEDICAL MONA CARE/DAY SERV 25 FOUNDATIO MINUTES N INITIAL 64723 [facility] INPATIENT 6 MEDICAL HORACIO CONSULT SERV NEW/ESTAB FOUNDATIO PT 55 N MIN RADIOLOGI 74807 [facility] 6 MEDICAL BIRDIE EXAMINATI SERV ON CHEST FOUNDATIO SINGLE N VIEW FRONTAL SBSQ 15290 [place] [address] MEDICAL SELAM CARE/DAY SERV 25 FOUNDATIO MINUTES N SBSQ [address] [facility] 6 MEDICAL MONA CARE/DAY SERV 25 FOUNDATIO MINUTES N RADIOLOGI 40999 [place] PRABHAKAR C 6 MEDICAL BIRDIE EXAMINATI SERV ON CHEST FOUNDATIO SINGLE N VIEW FRONTAL ECHO 98534 [place] KERLINE ELODIA TTHRC R-T 6 MEDICAL 2D SERV W/WOM-MOD FOUNDATIO E COMPL N SPEC&COLR D RADIOLOGI 57304 [place] NICKELS C EXAM 6 MEDICAL DENISE CHEST 2 SERV VIEWS FOUNDATIO FRONTAL&L N ATERAL CYTP 18587 [facility] SLCTV 6 Y OF HÉCTOR CELL [place] [facility] NT INTERPJ XCP[place] C/[place] [address] [facility] SUR[facility] 6 Y OF HÉCTOR PATHOLOGY [place] [facility] GROSS&BIRDIE ROSCOPIC EXAM ECG 64888 [place] ERINN CHI ROUTINE 6 MEDICAL ECG SERV W/LEAST FOUNDATIO 12 LDS N I&[place] [address] [place] NICKELS ANGIOGRAP 6 MEDICAL DENISE HY CHEST SERV W/CONTRAS FOUNDATIO T/NONCONT N RAST RADIOLOGI 13163 [place] ZAGUROVSK C 6 MEDICAL AYA MAR EXAMINATI SERV ON CHEST FOUNDATIO SINGLE N VIEW FRONTAL INITIAL 21101 [facility] 6 MEDICAL SELAM CARE/DAY SERV 50 [...] AGENCY HLTH/HOSP ICE EA 15 MIN RADIOLOGI 18191 [place] JULIANNA C 6 MEDICAL Y JUS EXAMINATI SERV ON FEMUR FOUNDATIO MINIMUM 2 N VIEWS LIGHTWEIG K0003 PATIENT PATIENT HT 6 AIDS [...] AGENCY AGENCY SPICE SET EA 15 MIN LIGHTWEIG K0003 PATIENT PATIENT HT 6 AIDS INC AIDS INC WHEELCHAI R WALKER E0143 PATIENT PATIENT FOLDING 6 AIDS INC AIDS INC WHEELED ADJUSTABL E/FIXED HEIGHT WHLCHAIR E0978 PATIENT PATIENT ACSS PSTN 6 AIDS INC AIDS INC BELT/SFTY BEL[facility] 76451 [facility] 6 MEDICAL NAN DAY SERV MANAGEMEN FOUNDATIO T 30 N MIN/< GENERAL E2601 PATIENT PATIENT WHLCHAIR 6 AIDS INC AIDS INC SEAT CUSHN WIDTH < 22 IN DEPTH SBSQ 59626 [place] [address] MEDICAL NAN CARE/DAY SERV 25 FOUNDATIO MINUTES N SBSQ 00696 [place] [address] MEDICAL NAN CARE/DAY SERV 25 FOUNDATIO MINUTES N SBSQ 91200 [place] [address] MEDICAL NAN CARE/DAY SERV 25 FOUNDATIO MINUTES N SBSQ 15231 [place] [address] MEDICAL NAN CARE/DAY SERV 25 FOUNDATIO MINUTES N SBSQ 30991 [place] [address] MEDICAL NAN CARE/DAY SERV 25 FOUNDATIO MINUTES N SBSQ 93966 [place] [address] MEDICAL NAN CARE/DAY SERV 25 FOUNDATIO MINUTES N SBSQ 36949 [place] [address] MEDICAL NAN CARE/DAY SERV 25 FOUNDATIO MINUTES N SBSQ 48457 [place] [address] MEDICAL PETTY CARE/DAY SERV 25 FOUNDATIO MINUTES N SBSQ 26482 [place] [address] MEDICAL PETTY CARE/DAY SERV 25 FOUNDATIO MINUTES N INITIAL 58040 [place] [address] MEDICAL PETTY CARE/DAY SERV 50 FOUNDATIO MINUTES N ANESTHESI 99332 [place] JOSE GUADALUPE A OPEN 6 MEDICAL CLEO PROCEDURE SERVICES S LOWER 1/3 FEMUR RADIOLOGI 76835 [place] JENNIFER Gonsales 6 MEDICAL EXAMINATI SERV ON FEMUR FOUNDATIO MINIMUM 2 N VIEWS REPOSITIO [id number] UNIVERSIT UNIVERS N RT LOW 6 Y Y FEMUR [facility] [place] [address] [place] CATHERINE, FEMORAL 6 MEDICAL JR RAY SUPRACOND SERV YLAR FOUNDATIO FRACTURE N W/XTN INJECTION J2405 [facility] ARAIZA 6 [facility]OS[facility] ONDANSETR INC INC ON HCL PER 1 MG KNEE L1830 [facility] 6 TECHNOLOG TECHNOLOG IMMOBLIZE IES INC IES INC R CANVAS LONGTUDNL PREFAB THER 79499 [facility] ARAIZA PROPH/DX 6 [facility] NJX IV INC INC PUSH SINGLE/1S T SBST/DRUG THERAPEUT 90467 [facility] ARAIZA IC 6 [facility]OS[facility]OS[facility] INJECTION INC INC IV PUSH EACH NEW DRUG RADIOLOGI 82050 [facility] Gonsales 6 MEDICAL BERENICE EXAMINATI SERV ON FEMUR FOUNDATIO MINIMUM 2 N VIEWS GROUND A0425 [facility] MILEA 6 AMBULANCE AMBULANCE PER SERVICE SERVICE STATUTE MILE AMBULANCE A0429 [facility] SERVICE 6 AMBULANCE AMBULANCE BLS SERVICE SERVICE EMERGENCY TRANSPORT RADEX HIP 09922 [facility] 6 MEDICAL BERENICE UNILATERA SERV L WITH FOUNDATIO PELVIS N 2-3 VIEWS RADIOLOGI 49099 [facility] Gonsales 6 MEDICAL BERENICE EXAMINATI SERV ON TIBIA FOUNDATIO & FIBULA N 2 VIEWS ECG 14318 [place] ERINN CHI ROUTINE 6 MEDICAL ECG SERV W/LEAST FOUNDATIO 12 LDS N I&R ONLY RADIOLOGI 80472 [place] SANCHEZ ALL C 6 MEDICAL EXAMINATI IMAGING ON CHEST ASS SINGLE VIEW FRONTAL RADIOLOGI 76195 [place] SANCHEZ ALL C 6 MEDICAL EXAMINATI IMAGING ON KNEE ASS 1/2 VIEWS RADIOLOGI 50742 [facility] BORREGO C 6 MEDICAL BERENICE EXAMINATI SERV ON KNEE [address] [place]OWER [address] [place] EMILY LIN EXTREMITY 6 MEDICAL NATHAN W/O SERV CONTRAST FOUNDATIO MATERIAL N THERAPEUT 25672 [facility] ARAIZA IC 5 [facility] PROPHYLAC INC INC TIC/DX INJECTION SUBQ/IM Encounters Encounter Start End Date Code Location Performer Type Date OFFICE 84926 [facility] 7 7 [facility]CAR T VISIT 5 E MINUTES [facility] - 7 7 HEALTHCAR OUTPATIEN E T [facility] JOSE G - 7 7 MEM HOSP INPATIENT INC EMERGENCY 63436 [facility] DEPT 7 7 PHYSICIAN VISIT S, PLLC HIGH SEVERITY& THREAT FUNCJ OFFICE 52155 [place] [facility] 6 6 MEDICAL JR T VISIT SERV 25 FOUNDATIO MINUTES [facility] UNIVERS[facility] - 6 6 Y [facility] T OFFICE 56116 [facility] 6 6 Y T VISIT 5 HOSPITAL MINUTES OFFICE 62604 [place] CATHERINE, [facility] 6 6 MEDICAL JR RAY T VISIT SERV 15 FOUNDATIO MINUTES N OFFICE 34959 [place] DAR KRI CONSULTAT 6 6 MEDICAL ION SERV NEW/ESTAB FOUNDATIO PATIENT N 40 MIN [facility] UNIVERSIT - 6 6 Y [facility] T OFFICE 67423 [facility] 6 6 [place] MARIAA T VISIT PHYSICIAN 25 S ASSIST MINUTES OFFICE 06129 [facility] 6 6 Y T [facility]ISIT 5 [facility] UNIVERS[facility] - 6 6 Y [facility] UNIVERSIT - 6 6 Y [facility] T OFFICE 01342 [place] RUIZ [facility] 6 6 MEDICAL JAM T VISIT SERV 25 FOUNDATIO MINUTES [facility] UNIVERSIT - 6 6 Y [facility] T OFFICE 35162 [facility] 6 6 [place] T VISIT REHABILIT 10 ATION MINUTES OFFICE 00259 [place] STILES [facility] 6 6 MEDICAL NAN T VISIT SERV 25 FOUNDATIO MINUTES [facility]OSPITAL [facility] - 6 6 [facility] REHABIL[facility] T ATION EMERGENCY 05754 [place] ANGELIKA DEPT 6 6 MEDICAL FERNANDO VISIT SERV HIGH FOUNDATIO SEVERITY& N THREAT FUNCJ HOME [facility], 6 6 HOME INPATIENT HEALTH [facility]ENCY [facility]PITAL UNIVERSIT - 6 6 Y [facility] T OFFICE 46962 [facility] 6 6 Y T VISIT 5 HOSPITAL MINUTES HOME [facility], 6 6 HOME INPATIENT HEALTH AGENCY HOME [facility], 6 6 HOME INPATIENT HEALTH AGENCY OFFICE 14520 [facility] 6 6 Y T VISIT 5 H[facility] - 6 6 [facility] - 6 6 [place] EM[facility] 06999 [facility] DEPT 6 6 MEM HOSP VISIT INC HIGH SEVERITY& THREAT [facility] UNIVERSIT - 6 6 Y INPATIENT HOSPITAL EMERGENCY 00363 [facility] 6 6 PHYSICIAN U HÉCTOR HERNANDEZMEN S, PLLC T VISIT MODERATE SEVERITY HOSPITAL JO[facility] G - 5 5 [facility] OUTPATIEN INC T EMERGENCY 83766 [facility] 5 5 [facility] DEPARTMEN INC T VISIT LOW/MODER SEVERITY
--- OUTSIDE RECORDS SUMMARY | 2017-09-13 16:39 | External Medical Summary Rpt | CCD ---
Author Author , YUAN Organization YUAN Address Unknown Phone [email or web address] Care Team Providers Care Reprint Sorter Name Role Phone A Ilda CATHERINE MD [facility], Lucho Unavailable Unavailable Ilda CATHERINE MD PSC [employer] Unavailable Unavailable INC, [employer] Unavailable Unavailable INC, [employer] CHANCE, CHANCE Unavailable Unavailable LAUREN ORLIN, Unavailable Unavailable LAUREN ORLIN SANCHEZ ALL, SANCHEZ ALL Unavailable Unavailable PRABHAKAR BIRDIE, PRABHAKAR Unavailable Unavailable [facility] Unavailable Unavailable SERVICE, [facility] Unavailable [facility]available SERVICE, [facility] Unavailable Unavailable REHABILITATION, [facility] JOSE GUADALUPE CLEO, JOSE GUADALUPE Unavailable Unavailable CLEO ROLLY, ROLLY Unavailable Unavailable BROWNLEE NAN, BROWNLEE Unavailable Unavailable NAN LICHA, LICHA Unavailable Unavailable [facility] Un[facility], [facility] Unavailable Unavailable [facility], [facility], Unavailable Unavailable [...] [facility] Unavailable [facility] Unavailable Unavailable ASSIST, [facility], Unavailable [facility]available [facility] Unavailable [facility], [facility] EUN NATHAN, EUN Unavailable Unavailable NATHAN [facility] Unavailable Unavailable AGENCY, [facility] YOBANI BIRDIE, YOBANI Unavailable Unavailable BIRDIE JR BEAR CATHERINE, Unavailable Unavailable JR BEAR CATHERINE MAR, Unavailable Unavailable RON MAR Purpose Continuity of Care Document - 03-03-2015 through 2016 Problems Code Diagnosis DOS Provider Status M1611 UNILATERAL 04-20-2017 [facility]STEOAR[facility]RI [facility]ATION TIS RIGHT HIP [id number] UNS FX 04-20-2017 [place] [facility] SHAFT RT SERV FEMUR FOUNDATION SUBSQT ENC CLOS FX RTN T44364G UNS FX 04-20-2017 [facility] SUBSQT CLOS FX RTN HEAL I472 VENTRICULAR 04-09-2017 A Ilda CATHERINE MD PSC TACHYCARDIA I482 CHRONIC 04-09-2017 A Ilda CATHERINE ATRIAL PSC FIBRILLATIO N I4892 UNSPECIFIED 04-09-2017 A Ilda CATHERINE ATRIAL PSC FLUTTER I509 HEART 04-09-2017 A Ilda CATHERINE FAILURE PSC UNSPECIFIED E039 HYPOTHYROID 04-08-2017 [facility] UNSPEC[facility] INC I110 HYPERTENSIV 04-08-2017 [facility], DISEASE PLLC WITH HEART FAILURE I5043 ACUTE ON 04-08-2017 [facility] CHRONIC [facility]YSIC[facility], COMB PLLC SYSTOLIC & DIASTOLIC CHF R0600 DYSPNEA 04-08-2017 [facility] [place] U[facility]PEC[facility]IED [facility] R0602 SHORTNESS 04-08-2017 [place] OF BREATH [facility] ASS J90 PLEURAL 10-27-2016 [place] [facility] EFFUSION SERV NOT FOUNDATION ELSEWHERE CLASSIFIED M151 HEBERDENS 10-27-2016 [place] [facility] NODES WITH SERV ARTHROPATHY FOUNDATION M159 POLYOSTEOAR 10-27-2016 [place] [facility] THRITIS SERV UNSPECIFIED FOUNDATION M6530 TRIGGER 10-27-2016 [place] [facility] FINGER SERV UNSPECIFIED FOUNDATION FINGER R768 OTH SPEC 10-27-2016 [place] [facility] ABNORMAL SERV IMMUNOLOGIC FOUNDATION AL FIND IN SERUM M64032T OTH FX 09-01-2016 [facility] SUBSQT ENC CLOS FX RTN Z4789 ENCOUNTER 09-01-2016 [facility] FOR OTHER SERV ORTHOPEDIC FOUNDATION AFTERCARE Z8781 PERSONAL 09-01-2016 [place] [facility] HISTORY OF SERV HEALED FOUNDATION TRAUMATIC FRACTURE M1711 UNILATERAL 08-16-2016 PATIENT PRIMARY AIDS INC OSTEOARTHRI TIS RIGHT KNEE [id number] OTH PHYSEAL 08-16-2016 PATIENT FX LOWER AIDS INC RT FEMUR INIT ENC CLOS FX [id number] OTH PHYSEAL 08-16-2016 PATIENT FX LOWER AIDS INC RT FEMUR SUBSQT FX RTN HEAL Z9181 HISTORY OF 08-16-2016 PATIENT FALLING AIDS INC M160 BILATERAL 07-28-2016 [facility] TIS OF HIP M170 BILATERAL 07-28-2016 [facility] TIS OF KNEE D77348 PRIMARY 07-28-2016 [facility] SERV TIS RIGHT FOUNDATION HAND Y54425 PRIMARY 07-28-2016 [place] [facility] SERV TIS LEFT FOUNDATION HAND S60186 PRIMARY 07-28-2016 [facility] TIS RIGHT ANKLE AND FOOT C37535 PRIMARY 07-28-2016 [facility] TIS LEFT ANKLE AND FOOT Z0000 ENCOUNTER 07-28-2016 [facility] MED EXAM W/O ABNORMAL FIND U17876G DSPL SC FX 07-21-2016 [facility] W/O IC EXT HOSPITAL LOW RT FEM SUBS CLOS RTN H9802MB UNS FX RT 07-21-2016 [place] [facility] FEMUR SERV SUBSQT ENC FOUNDATION CLOS FX RTN HEAL I24089M [facility] 07[facility]2016 [facility] COMP OTH PHYSICIANS BONE DEVC ASSIST IMPL GRAFT INIT ENC G24953C UNS 07-02-2016 [place] [facility] FRACTURE SERV SHAFT LT FOUNDATION TIBIA INIT ENC CLOS FX P18072X OTHER 07-02-2016 [facility]RA[facility] SHAFT LT TIBIA INIT ENC [...] MEDICAL SYSTOLIC SERV CONGESTIVE FOUNDATION HEART FAILURE X51953T FX UNS PART 05-25-2016 [place] [facility] NECK UNS SERV FEMUR FOUNDATION INITIAL ENC CLOS FX E79458D CONTUSION 05-23-2016 [place] [facility] OF LUNG SERV [...] MEDICAL MALAISE SERV FOUNDATION R846 ABN 05-20-2016 [facility] FIND IN HOSPI SPEC RESP ORGN & THOR R918 OTHER 05-20-2016 [place] [facility] NONSPECIFIC SERV ABNORMAL FOUNDATION FINDING OF LUNG FIELD M6281 MUSCLE 05-14-2016 [facility] GENERALIZED AGENCY R2689 OTHER 05-14-2016 [facility] ES OF GAIT AGENCY AND MOBILITY K28743G UNSPECIFIED 05-14-2016 [facility] FRACTURE HEALTH LOWER END AGENCY RT FEMUR SEQUELA D649 ANEMIA 03-15-2016 [place] [facility] UNSPECIFIED SERV FOUNDATION I10 ESSENTIAL 03-15-2016 [facility] PRIMARY SERV HYPERTENSIO FOUNDATION N K62942 HEMIPLEGIA 03-15-2016 [place] [facility] FLW SERV CEREBRAL [...] Z6842 BODY MASS 03-05-2016 [facility] IN[facility] BMI [place] 45.0-49.9 REHABILITAT ADULT ION M1990 UNSPECIFIED 03-02-2016 [facility] OSTEOARTHRI TIS UNSPECIFIED SITE P95593E DSPL SC FX 03-02-2016 [facility] WITH IC EXT SERVICES LOW RT FEMUR INIT CLOS FX Z9889 OTHER 03-02-2016 [place] [facility] SPECIFIED SERV POSTPROCEDU FOUNDATION RAL STATES M179 OSTEOARTHRI 03-01-2016 [facility] UNSPECIFIED M2500 HEMARTHROSI 03-01-2016 [place] [facility] S SERV UNSPECIFIED FOUNDATION JOINT T11531 PAIN IN 03-01-2016 [place] RIGHT KNEE MEDICAL IMAGING ASS T68488 OSTEOPHYTE 03-01-2016 [facility] RIGHT HIP SERV FOUNDATION V18660 OSTEOPHYTE 03-01-2016 [facility] RIGHT KNEE SERV FOUNDATION X13644A UNS FX 03-01-2016 [place] [facility] SHAFT RT SERV FEMUR FOUNDATION INITIAL ENC CLOS FRACTURE J19694A DSPL TRNS 03-01-2016 [facility] SHAFT RT TECHNOLOGIE FEMUR S INC INITIAL ENC CLOS FX R22842E UNS FX 03-01-2016 [facility] SERV FEMUR FOUNDATION INITIAL ENC CLOS FRACTURE S90743F OTH FX 03-01-2016 [facility], FEMUR PLLC INITIAL ENC CLOS FX O5730GN UNS 03-01-2016 [facility] FRACTURE SERV UNS FEMUR FOUNDATION INITIAL ENC CLOS FX N6379EU OTHER FALL 03-01-2016 [facility] ON SAME SERV LEVEL FOUNDATION INITIAL ENCOUNTER P64NRZT UNSPECIFIED 03-01-2016 [facility] INITIAL SERVICE ENCOUNTER R26796 ENCOUNTER 03-01-2016 [facility] FOR OTHER SERV PREPROCEDUR FOUNDATION AL EXAMINATION Z4689 ENCOUNTER 03-01-2016 [facility] FITTING & SERV ADJUSTMENT FOUNDATION OTH SPEC DEVICES 4019 UNSPECIFIED 03-03-2015 [facility]SS[facility] HYPERTENSIO INC N 10018 UNSPECIFIED 03-03-2015 [facility]AL [facility] [...] PA 20 8- 2- 00 01 ve DC 29 20 20 19 AI L 30 [...] 03 -2 -2 .0 00 TE ti OR 70 8- 2- 00 01 ve OL [...] PA 20 8- 8- 00 01 ve DC 29 20 20 19 AI L 30 [...] 03 -2 -1 .0 00 TE ti OR 70 8- 8- 00 01 ve OL [...] 03 -2 -2 .0 00 TE ti OR 70 8- 1- 00 01 ve OL 83 20 20 17 AI OL 20 17 17 25 D 1 05 PH FORD AR CC MA CY ER #3 10 93 0 8 MG TA B VE 68 06 07 60 30 00 RI Ac RA 46 -2 -2 .0 00 TE ti PA 20 8- 1- 00 01 ve DC 29 20 20 18 AI L 30 [...] PA 20 9- 3- 00 01 ve DC 29 20 20 18 AI L 30 17 17 59 D ER 1 30 PH AR 18 MA 0 CY MG #3 TA 93 BL 8 ET ME 62 02 03 30 30 00 RI Ac TO 03 -2 -1 .0 00 TE ti OR 70 3- 7- 00 01 ve OL [...] 03 -1 -0 .0 00 TE ti OR 70 2- 3- 00 01 ve OL 83 20 20 14 AI OL 20 17 17 87 D 1 69 PH FORD AR CC MA CY ER #3 10 93 0 8 MG TA B ME 62 12 01 30 30 00 RI Ac TO 03 -1 -0 .0 00 TE ti OR 70 3- 9- 00 01 ve OL [...] Procedure DOS Code Location Performer Comment RADIOLOGI 17347 LUZ Gonsales 7 MEDICAL EXAMINATI SERV ON FEMUR FOUNDATIO MINIMUM 2 N VIEWS SBSQ 35837 [facility] 7 DORENE HOWARD CARE/DAY PSC 25 MINUTES INITIAL 81120 [facility] 7 DORENE HOWARD CARE/DAY PSC 70 MINUTES RADIOLOGI 50866 [place] ROLLY C 7 MEDICAL EXAMINATI IMAGING ON CHEST ASS SINGLE VIEW FRONTAL RADIOLOGI 11306 [facility] 6 Y Y EXAMINATI [facility] ON FEMUR MINIMUM 2 VIEWS HIGH K0004 PATIENT PATIENT STRENGTH 6 AIDS INC AIDS INC LIGHTWEIG HT WHEELCHAI R ELEVATING K0195 PATIENT PATIENT LEGREST 6 AIDS INC AIDS INC PAIR RADEX 76677 [facility] FOOT 6 Y Y COMPLETE HOSPITAL HOSPITAL MINIMUM 3 VIEWS RADEX 58610 [facility] HAND 2 6 Y Y VIEWS [facility] HEPATITIS 85679 [facility] CORE 6 Y Y ANTIBODY [facility] [place] [address] [facility] 6 Y Y B [facility] SURFACE ANTIGEN COLLECTIO 47466 [facility] VENOUS 6 Y Y BLOOD [facility] VENIPUNCT URE RADEX 14983 [place] DELVIN WRIST 2 6 MEDICAL MYRA VIEWS SERV FOUNDATIO N HEPATITIS 33164 [facility] 6 Y Y ANTIBODY HOS[facility] ANTINUCLE 62802 [facility] 6 Y Y ANTIBODIE [facility] HOSPITAL S CLAIRE RADIOLOGI 99383 [place] MONTGOMER C 6 MEDICAL Y JUS EXAMINATI SERV ON FEMUR FOUNDATIO MINIMUM 2 N VIEWS HIGH K0004 PATIENT PATIENT STRENGTH 6 AIDS INC AIDS INC LIGHTWEIG HT WHEELCHAI R ELEVATING K0195 PATIENT PATIENT LEGREST 6 AIDS INC AIDS INC PAIR DUP-SCAN 03103 [place] LAUREN XTR VEINS 6 MEDICAL ORLIN COMPLETE SERV FOUNDATIO BILATERAL N STUDY RADIOLOGI 06823 [facility] EXAM 6 Y Y CHEST [...] AGENCY SPICE SET EA 15 MIN ECG 64919 [facility] ROUTINE 6 MEDICAL NAN ECG SERV W/LEAST FOUNDATIO 12 LDS N I&R ONLY CARDIOVER 32138 [facility] ANNA 6 [facility]ICAL [facility] ELECTIVE SERV ARRHYTHMI FOUNDATIO A N EXTERNAL ECHO 00552 [facility] TRANSESOP 6 [facility]ICAL [facility] HAG R-T SERV 2D W/PRB FOUNDATIO IMG N ACQUISJ I&R DOP 76254 [facility] ECHOCARD 6 [facility] COLOR SERV FLOW FOUNDATIO VELOCITY N MAPPING DOPPLER 28205 [facility] ECHOCARD 6 [facility]ICAL [facility] PULSE SERV WAVE FOUNDATIO W/SPECTRA N L DISPLAY SBSQ 93394 [facility] 6 MEDICAL JACOBO CARE/DAY SERV [address] THORAX 78217 [facility] W/O 6 MEDICAL BIRDIE CONTRAST SERV MATERIAL FOUNDATIO N SBSQ 87320 [place] [address] MEDICAL MONA CARE/DAY SERV 25 FOUNDATIO MINUTES N INITIAL 14347 [facility] INPATIENT 6 MEDICAL HORACIO CONSULT SERV NEW/ESTAB FOUNDATIO PT 55 N MIN RADIOLOGI 43827 [facility] 6 MEDICAL BIRDIE EXAMINATI SERV ON CHEST FOUNDATIO SINGLE N VIEW FRONTAL SBSQ 96939 [place] [address] MEDICAL SELAM CARE/DAY SERV 25 FOUNDATIO MINUTES N SBSQ 99924 [facility] 6 MEDICAL MONA CARE/DAY SERV 25 FOUNDATIO MINUTES N RADIOLOGI 13370 [place] PRABHAKAR C 6 MEDICAL BIRDIE EXAMINATI SERV ON CHEST FOUNDATIO SINGLE N VIEW FRONTAL ECHO 40558 [place] KERLINE ELODIA TTHRC R-T 6 MEDICAL 2D SERV W/WOM-MOD FOUNDATIO E COMPL N SPEC&COLR D RADIOLOGI 34778 [place] NICKELS C EXAM 6 MEDICAL DENISE CHEST 2 SERV VIEWS FOUNDATIO FRONTAL&L N ATERAL CYTP 88590 [facility] SLCTV 6 Y OF HÉCTOR CELL [facility] NT INTERPJ [place] L[place] [address] [facility] 6 Y OF HÉCTOR PATHOLOGY [place] [facility] GROSS&BIRDIE ROSCOPIC EXAM ECG 77481 [place] ERINN CHI ROUTINE 6 MEDICAL ECG SERV W/LEAST FOUNDATIO 12 LDS N I&[place] [address] [place] NICKELS ANGIOGRAP 6 MEDICAL DENISE HY CHEST SERV W/CONTRAS FOUNDATIO T/NONCONT N RAST RADIOLOGI 69602 [place] ZAGUROVSK C 6 MEDICAL AYA MAR EXAMINATI SERV ON CHEST FOUNDATIO SINGLE N VIEW FRONTAL INITIAL 71668 [facility] 6 MEDICAL SELAM CARE/DAY SERV 50 [...] AGENCY HLTH/HOSP ICE EA 15 MIN RADIOLOGI 33891 [place] JULIANNA C 6 MEDICAL Y JUS [...] INC AIDS INC BELT/SFTY BELT/[facility] [address] [facility] 6 MEDICAL NAN DAY SERV MANAGEMEN FOUNDATIO T 30 N MIN/< GENERAL E2601 PATIENT PATIENT WHLCHAIR 6 AIDS INC AIDS INC SEAT CUSHN WIDTH < 22 IN DEPTH SBSQ 34170 [place] [address] MEDICAL NAN CARE/DAY SERV 25 FOUNDATIO MINUTES N SBSQ 33716 [place] [address] MEDICAL NAN CARE/DAY SERV 25 FOUNDATIO MINUTES N SBSQ 33534 [place] [address] MEDICAL NAN CARE/DAY SERV 25 FOUNDATIO MINUTES N SBSQ 54408 [place] [address] MEDICAL NAN CARE/DAY SERV 25 FOUNDATIO MINUTES N SBSQ [address]2052 [place] [address] MEDICAL NAN CARE/DAY SERV 25 FOUNDATIO MINUTES N SBSQ [address]9630 [place] [address] MEDICAL NAN CARE/DAY SERV 25 FOUNDATIO MINUTES N SBSQ 25685 [place] [address] MEDICAL NAN CARE/DAY SERV 25 FOUNDATIO MINUTES N SBSQ 31158 [place] [address] MEDICAL PETTY CARE/DAY SERV 25 FOUNDATIO MINUTES N SBSQ 78736 [place] [address] MEDICAL PETTY CARE/DAY SERV 25 FOUNDATIO MINUTES N INITIAL 95281 [place] [address] MEDICAL PETTY CARE/DAY SERV 50 FOUNDATIO MINUTES N ANESTHESI 32481 [place] JOSE GUADALUPE A OPEN 6 MEDICAL CLEO PROCEDURE SERVICES S LOWER 1/3 FEMUR RADIOLOGI 98063 [place] JENNIFER Gonsales 6 MEDICAL EXAMINATI SERV ON FEMUR FOUNDATIO MINIMUM 2 N VIEWS REPOSITIO [id number] [facility] UNIVERS N RT LOW 6 Y Y FEMUR [facility] [place] [address] [place] CATHERINE, FEMORAL 6 MEDICAL JR RAY SUPRACOND SERV YLAR FOUNDATIO FRACTURE N W/XTN INJECTION J2405 [facility] ARAIZA 6 [facility] ONDANSETR INC INC ON HCL PER 1 MG KNEE L1830 [facility] 6 TECHNOLOG TECHNOLOG IMMOBLIZE IES INC IES INC R CANVAS LONGTUDNL PREFAB THER 24236 [facility] ARAIZA PROPH/DX 6 [facility] NJX IV INC INC PUSH SINGLE/1S T SBST/DRUG THERAPEUT 04156 [facility] ARAIZA IC 6 [facility] INJECTION INC INC IV PUSH EACH NEW DRUG RADIOLOGI 97977 LU[facility] Gonsales 6 MEDICAL BERENICE EXAMINATI SERV ON FEMUR FOUNDATIO MINIMUM [address] [facility] MILEA 6 AMBULANCE AMBULANCE PER SERVICE SERVICE STATUTE MILE AMBULANCE A0429 [facility] SERVICE 6 AMBULANCE AMBULANCE BLS SERVICE SERVICE EMERGENCY TRANSPORT RADEX HIP 01345 LUZ BORREGO 6 MEDICAL BERENICE UNILATERA SERV L WITH FOUNDATIO PELVIS N 2-3 VIEWS RADIOLOGI 86926 LUZ Gonsales 6 MEDICAL BERENICE EXAMINATI SERV ON TIBIA FOUNDATIO & FIBULA N 2 VIEWS ECG 26477 [place] ERINN CHI ROUTINE 6 MEDICAL ECG SERV W/LEAST FOUNDATIO 12 LDS N I&R ONLY RADIOLOGI 90851 [place] SANCHEZ ALL C 6 MEDICAL EXAMINATI IMAGING ON CHEST ASS SINGLE VIEW FRONTAL RADIOLOGI 01719 [place] SANCHEZ ALL C 6 MEDICAL EXAMINATI IMAGING ON KNEE ASS 1/2 VIEWS RADIOLOGI 19001 LU[facility] BORREGO C 6 MEDICAL BERENICE EXAMINATI SERV ON KNEE [address] [place] [address] [place] EMILY LIN EXTREMITY 6 MEDICAL NATHAN W/O SERV CONTRAST FOUNDATIO MATERIAL N THERAPEUT 13570 [facility] ARAIZA IC 5 [facility] PROPHYLAC INC INC TIC/DX INJECTION SUBQ/IM Encounters Encounter Start End Date Code Location Performer Type Date OFFICE 34057 [place] OUTPAT[facility]EN 7 7 [facility]ALTHCAR T VISIT 5 E MINUTES [facility] [place] - 7 7 [facility]CAR OUTPATIEN E T [facility] JOSE G - 7 7 MEM HOS[facility] INPATIENT INC EMERGENCY 03586 [facility] DEPT 7 7 PHYSICIAN VISIT S, PLLC HIGH SEVERITY& THREAT FUNCJ OFFICE 72201 [place] JUNI [facility] 6 6 MEDICAL JR T VISIT SERV 25 FOUNDATIO MINUTES [facility] UNIVERSIT - 6 6 Y [facility] T OFFICE 49002 [facility] 6 6 Y T VISIT 5 HOSPITAL MINUTES OFFICE 44023 [place] CATHERINE, [facility] 6 6 MEDICAL JR RAY T VISIT SERV 15 FOUNDATIO MINUTES N OFFICE 15810 [place] DAR KRI CONSULTAT 6 6 MEDICAL ION SERV NEW/ESTAB FOUNDATIO PATIENT N 40 MIN [facility] UNIVERSIT - 6 6 Y [facility] T OFFICE 48009 [facility] 6 6 [place] MARIAA T VISIT PHYSICIAN 25 S ASSIST MINUTES OFFICE 85221 [facility] 6 6 Y T VISIT 5 [facility] UNIVERSIT - 6 6 Y [facility] HOSPITAL UNIVERSIT - 6 6 Y [facility] T OFFICE 09369 [place] RUIZ [facility] 6 6 MEDICAL JAM T VISIT SERV 25 FOUNDATIO MINUTES [facility] UNIVERSIT - 6 6 Y [facility] T OFFICE 71381 [facility] 6 6 [place] T VISIT REHABILIT 10 ATION MINUTES OFFICE 36598 [place] STILES [facility] 6 6 MEDICAL NAN T VISIT SERV 25 FOUNDATIO MINUTES [facility]OSPITAL [facility] - 6 6 [facility] REHABILIT T ATION EMERGENCY 77469 [place] ANGELIKA DEPT 6 6 MEDICAL FERNANDO VISIT SERV HIGH FOUNDATIO SEVERITY& N THREAT FUNCJ [facility], 6 6 HOME INPATIENT [facility] - [facility] 67355 [facility] 6 6 Y T VISIT 5 HOSPITAL MINUTES [facility], 6 6 HOME INPATIENT HEALTH AGENCY [facility] 6 6 HOME INPATIENT HEALTH AGENCY OFFICE 25520 [facility] 6 6 Y T VISIT [facility] 6 6 [place] [facility] 35242 JOSE G DEPT 6 6 MEM HOSP VISIT INC HIGH SEVERITY& THREAT [facility] UNIVERSIT - 6 6 Y INPATIENT HOSPITAL EMERGENCY 13969 [facility] SEV[facility] 6 6 PHYSICIAN U HÉCTOR HERNANDEZMEN S, PLLC T VISIT MODERATE SEVERITY HOSPITAL JOSE G - 5 5 [facility] OUTPATIEN INC T EMERGENCY 18471 JO[facility] G 5 5 [facility] DEPARTMEN INC T VISIT LOW/MODER SEVERITY
--- OUTSIDE RECORDS SUMMARY | 2017-09-13 16:40 | External Medical Summary Rpt | CCD ---
Demographics Preferred Language Hungarian Marital Status Unknown Jewish Affiliation Unknown Race Unknown Ethnic Group Unknown Author Author , YUAN BOLDEN Address Unknown Phone Immunization No patient found.
--- OUTSIDE RECORDS SUMMARY | 2017-09-13 16:40 | External Medical Summary Rpt | CCD ---
Demographics Preferred Language Swedish Marital Status Unknown Cheondoism Affiliation Unknown Race Unknown Ethnic Group Unknown Author Author , YUAN BOLDEN Address Unknown Phone Immunization No patient found.
--- OUTSIDE RECORDS SUMMARY | 2017-09-13 16:41 | External Medical Summary Rpt ---
Author Author [facility] [place], [employer] Organization [employer] Address Unknown Phone Unavailable Results CBC W Auto Differential panel in Blood Observa Value Referen Units Interpr Notes Date tion ce etation Range Basophils 0 - 0.2 K/MM3 Normal No Sep 13 informati 2016 3:24 [#/volume on in PM ] in source Blood by data Automated count Basophils 0.1 - 2.0 % Normal No Sep 13 informati 2016 3:24 leukocyte on in PM s in source Blood by data Automated count Eosinophi 0.0 - 0.4 K/mm3 Normal No Sep 13 ls informati 2016 3:24 [#/volume on in PM ] in source Blood by data Automated count Eosinophi 0.1 - % Normal No Sep 13 ls/100 12.0 informati 2016 3:24 leukocyte on in PM s in source Blood by data Automated count Granulocy 1.8 - 7.8 K/mm3 High No Sep 13 jayesh informati 2016 3:24 [#/volume on in PM ] in source Blood by data Automated count Granulocy 37.0 - % Normal No Sep 13 jayesh/100 80.0 informati 2016 3:24 leukocyte on in PM s in source Blood by data Automated count Hematocri 37.0 - % Normal No Sep 13 t [Volume 47.0 informati 2016 3:24 on in PM Fraction] source of Blood data Hemoglobi 12.2 - g/dL Normal No Sep 13 n 16.2 informati 2016 3:24 [Mass/vol on in PM ume] in source Blood data Lymphocyt 0.7 - 4.5 K/mm3 Normal No Sep 13 es informati 2016 3:24 [#/volume on in PM ] in source Unspecifi data ed specimen by Automated count Lymphocyt 10 - 50.0 % Normal No Sep 13 es informati 2016 3:24 [#/volume on in PM ] in source Unspecifi data ed specimen by Automated count Erythrocy 27 - 31.2 pg Normal No Sep 13 te mean informati 2016 3:24 corpuscul on in PM ar source hemoglobi data n [Entitic mass] Erythrocy 31.8 - g/dl Low No Sep 13 te mean 35.4 informati 2016 3:24 corpuscul on in PM ar source hemoglobi data n concentra tion [Mass/vol ume] by Automated count Erythrocy 82.2 - fl Normal No Sep 13 te mean 97.8 informati 2016 3:24 corpuscul on in PM ar volume source [Entitic data volume] by Automated count Monocytes 0.1 - 1.0 K/mm3 Normal No Sep 13 informati 2016 3:24 [#/volume on in PM ] in source Blood by data Automated count Monocytes 1.7 - 9.3 % Normal No Sep 13 /100 informati 2016 3:24 leukocyte on in PM s in source Blood by data Automated count Platelet 7.4 - fl Normal No Sep 13 mean 10.4 informati 2016 3:24 volume on in PM [Entitic source volume] data in Blood by Automated count Platelets 142 - 424 K/mm3 Normal No Sep 13 informati 2016 3:24 [#/volume on in PM ] in source Blood data Erythrocy 4.2 - 5.4 M/mm3 Normal No Sep 13 jayesh informati 2016 3:24 [#/volume on in PM ] in source Amniotic data fluid Erythrocy 11.5 - % Normal No Sep 13 te 17.5 informati 2016 3:24 distribut on in PM ion width source [Entitic data volume] by Automated count Leukocyte 4.8 - K/MM3 High No Sep 13 s 10.8 informati 2016 3:24 [#/volume on in PM ] in source Blood data Comprehensive metabolic 2000 panel in Serum or Plasma Observa Value Referen Units Interpr Notes Date tion ce etation Range COMMENTS TO PROTECTION AGENT: STEPDOWN PT Albumin/G 1.1 - 1.8 No [...] Low No April 11 [Mass/vol 10.1 informati 2016 6:17 ume] in on in AM Serum or source Plasma data Chloride 98 - 107 mmoL/L Normal No April 11 [Moles/vo informati 2016 6:17 lume] in on in AM Serum or source Plasma data Carbon 21.0 - mmoL/L Normal No April 11 dioxide, 32.0 informati 2016 6:17 total on in AM [Moles/vo source [...] mmoL/L Normal No April 11 [Moles/vo informati 2017 6:17 lume] in on in AM Serum [...] Date tion ce etation Range COMMENTS TO PROTECTION AGENT: STEPDOWN PT Basophils 0 - 0.2 K/MM3 [...] Normal No April 11 te mean informati 2017 6:17 corpuscul on in AM ar source [...] - 9.3 % Normal No April 11 /100 informati 2016 6:17 leukocyte on in AM [...] Normal No April 10 dioxide, 32.0 informati 2017 6:35 total on in AM [Moles/vo source [...] No April 09 e 1.02 informati informati 2017 4:00 [Mass/vol on in on in AM ume] in source source Serum or data data Plasma Creatinin 50 - 200 ML/MIN No No April 09 e renal informati informati 2016 4:00 clearance on in on in AM source source predicted data data by Cockcroft -Gault formula Estimated 59- ML/MIN No REFERENCE April 09 informati RANGE: 2016 4:00 glomerula on in >60 AM r source ML/MIN/1. filtratio data 73 SQUARE n rate METERSIf (GF this patient is -A merican, then multiply theresult by 1.210. Glucose 74 - 106 mg/dL High No April 09 [Mass/vol informati 2016 4:00 ume] in on in AM Serum or source Plasma data Potassium 3.5 - 5.1 mmoL/L Normal No April 09 inform2016 4:00 [Moles/vo on in AM lume] in source Serum or data Plasma Sodium 136 - 145 mmoL/L Normal No April 09 [Moles/vo informati 2016 4:00 lume] in on in AM Serum or source Plasma data CBC W Auto Differential panel in Blood Observa Value Referen Units Interpr Notes Date tion ce etation Range Basophils 0 - 0.2 K/MM3 Normal No April 092016 4:00 [#/volume on in AM ] in source Blood by data Automated count Basophils 0.1 - 2.0 % Normal No April 09 / informati 2016 4:00 leukocyte on in AM [...] 1.7 - 9.3 % Normal No April 09 / informati 2016 4:00 leukocyte on in AM s in source Blood by data Automated count Platelet 7.4 - fl Low No April 09 mean 10.4 informati 2016 4:00 volume on in AM [Entitic source volume] data in Blood by Automated count Platelets 142 - 424 K/mm3 Normal No April 09 inform2016 4:00 [#/volume on in AM ] in [...] April 08 nce of informa informa informa 2017 Urine tion in tion in tion in [...] Abnorma No April 08 [Presen informa l informa 2016 ce] in tion in tion in 8:30 [...] No No April 08 ial informa informa 2017 cells.s tion in tion in 8:30 PM [...] No April 08 of informa informa informa 2017 Urine tion in tion in tion in [...] Plasma Observa Value Referen Units Interpr Notes etation Range Thyroxine 4.7 - ug/dl Normal No April 08 (T4) 13.3 informati 2016 7:40 [Mass/vol on in PM ume] in source Serum or data Plasma Thyrotropin [Units/volume] in Serum or Plasma Observa Value Referen Units Interpr Notes etation Range Thyrotrop 0.358 - uIU/ml High No April 08 in 3.740 informati 2016 7:40 [Units/vo on in PM lume] in source Serum or data Plasma CBC W Auto Differential panel in Blood Observa Value Referen Units Interpr Notes Date etation Range Basophils 0 - 0.2 K/MM3 Normal No April 08 informati 2016 7:40 [#/volume on in PM ] in source Blood by data Automated count Basophils 0.1 - 2.0 % Normal No April 08 /100 informati [...] - 9.3 % Normal No April 08 informati 2016 7:40 leukocyte on in PM s in source Blood by data Automated count Platelet 7.4 - fl Low No April 08 mean 10.4 informati 2017 7:40 volume on in PM [Entitic source volume] data in Blood by Automated count Platelets 142 - 424 K/mm3 Normal No April 08 informati 2016 7:40 [#/volume on in PM ] in source Blood data Erythrocy 4.2 - 5.4 M/mm3 Low No April 08 jayesh informati 2016 7:40 [#/volume on in PM ] in source Amniotic data fluid Erythrocy 11.5 - % Normal April 08 te 17.5 informati 2016 7:40 distribut on in PM ion width source [Entitic data volume] by Automated count Leukocyte 4.8 - K/MM3 Normal April 08 s 10.8 informati 2016 7:40 [#/volume on in PM ] in source Blood data
--- OUTSIDE RECORDS SUMMARY | 2017-09-13 16:41 | External Medical Summary Rpt ---
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
[2017-09-14] VITALS (20 sets, daily range): BP systolic 89–158; BP diastolic 42–110
--- NOTE | 2017-09-14 07:47 | PHARMACY CLINIC NOTE ---
Patient Demographics Patient Demographics Admission date: 09/13/17 Date: 09/14/17 Time: 0746 Allergies Coded Allergies: No Known Allergies (03/01/16) HEIGHT- FT: 5 IN: 3.00 K.611 VTE General Information Labs: Laboratory Tests 09/13 1524 Hematology Hgb (12.2 - 16.2 g/dL) 12.8 Hct (37.0 - 47.0 %) 40.7 Plt Count (142 - 424 K/mm3) 313 Disclaimer The following section includes nursing documentation that has been pulled in for pharmacy review. Patient's VTE score: 2 Patient's VTE Risk: VERY LOW RISK Clinical trial participant? No VTE prophylaxis [id number] VTE prophylaxis ordered? Yes Type of prophylaxis/treatment: HARRISON at 0747
--- NOTE | 2017-09-14 08:26 | HISTORY AND PHYSICAL REPORT ---
Demographics: Admit date: 09/13/17 Chief complaint: Dyspnea/tachycardia PRIMARY DIAGNOSIS: ATRIAL FIBRILLATION Allergies: Coded Allergies: No Known Allergies (03/01/16) History of present illness: History of present illness: 57-year-old white female who presented to the emergency department with atrial fibrillation with rapid ventricular response. She has been treated for atrial fibrillation for several months at [facility] cardiology department, and apparently started with atrial fibrillation after a femur fracture 1 year ago when she was wheelchair-bound for several months. She follows with [facility] cardiology and pulmonary, after an episode one year ago when she was at [facility] rehabbing from the femur fracture and developed right- sided pleural effusion associated with a lung mass. This was drained and since that time she's followed with pulmonary, who is planning on seeing her in October and possibly releasing her from their care. Since that time she's been in atrial fibrillation, was cardioverted with several months of success but then went back into atrial fibrillation in the spring. Since that time she's been maintained on Eliquis and rate control. She is scheduled to see [facility] cardiology in October with a repeat echocardiogram at that point. 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 She has not been on a diuretic and has had a lot of swelling. She thinks this may have contributed to increased shortness of breath and yesterday evening noticed rapid heart rate, breathlessness and came to the urgent treatment Center, transferred over to the emergency department and found to be in rapid atrial fibrillation. Diuresed and admitted to the hospital for further evaluation and treatment. Past medical history: Family HX Diabetes Yes CAD No Hypertension Yes Hyperlipidemia Yes Cancer Yes TB No Immunization HX DT/Tetanus > 10 Years Ago Flu 2016-17FSN Pneumonia Refuses Other PT REQUESTS FLU SHOT TB Test in last year No General CAD? No Angina: No MD: No Hypertension? Yes Hyperlipidemia? No CHF? Yes COPD? No Asthma? No Anemia? No Hernia? No Thyroid Problems? No Hypothyroidism? No CVA? No Seizures? No Diabetes? No UTI? No Stones? No GB Disease: No Nephritic Syndrome? No Asplenia? No Hepatitis? No Sickle Cell Disease? No Arthritis? No Cataracts? No Glaucoma? No MRSA? No TB? No Cancer? No Past Surgical HX Previous Surgery?Y OVARIAN CYST FEMUR SURGERY Current home meds: Active Scripts Verapamil Hcl (Verapamil ER) 180 MG PO BID #60 TAB Ref 1 Prov: 04/11/17 Digoxin (Digox) 0.125 MG PO DAILY #30 TAB Ref 1 Prov: 04/11/17 Reported Medications Apixaban (Eliquis) 5 MG PO DAILY #30 Atorvastatin Calcium 40 MG PO DAILY #30 ASPIRIN (Aspirin) 81 MG PO DAILY Social Hx: Smoking HX Tobacco No Are you/the child exposed to second-hand smoke: No Alcohol Alcohol: No Hx of Drug Use Drug Use? No Patien't marital status is single Patient's support system is good Review of systems: Constitutional malaise, weakness. No: fever. Respiratory shortness of breath, SOB with excertion. Cardiovascular see HPI Gastrointestinal/Abdominal No no symptoms reported Genitourinary No: no symptoms reported. Musculoskeletal No: no symptoms reported. Neurological No: see HPI. Exam: Lab data for last 24 hours: Laboratory Tests 09/14/17 0455: Sodium 141, Potassium 3.5, Chloride 105, Carbon Dioxide 27, BUN 17, Creatinine 1.0, Estimated Creat Clear 130, Estimated GFR (MDRD) 57 L, Glucose 116 H, Calcium 8.5 09/13/17 1524: Sodium 140, Potassium 4.0, Chloride 107, Carbon Dioxide 22, BUN 17, Creatinine 1.1 H, Estimated Creat Clear 103, Estimated GFR (MDRD) 51 L, Glucose 177 H, Calcium 8.9, Total Bilirubin 0.6, AST 32, ALT 51, Alkaline Phosphatase 98, Creatine Kinase 72, CK-MB (CK-2) Rel Index 1.0, CK and CKMB Interp 0.7, Troponin I < 0.02, B-Natriuretic Peptide 846 H, Total Protein 7.2, Albumin 3.5, Globulin 3.7 H, Albumin/Globulin Ratio 0.9 L, WBC 12.1 H, RBC 4.44, Hgb 12.8, Hct 40.7 , MCV 91.8, RDW 14.9, Plt Count 313, MPV 8.6, Gran % 78.4, Gran # 9.5 H, Lymphocytes % 13.7, Monocytes % 6.4, Eosinophils % 1.2, Basophils % 0.3, Lymphocytes # 1.7, Monocytes # 0.8, Eosinophils # 0.2, Basophils # 0.0, PUBS MCHC 31.5 L, MCH 28.9, Digoxin < 0.20 L Admission vital signs: 1ST Vital Signs Result Date Time Pulse Ox 98 09/13 1506 B/P 140/110 09/13 1506 Temp 98.4 09/13 1506 Pulse 68 09/13 1506 Resp 18 09/13 150 O2 Delivery ROOM AIR 09/13 1831 O2 Flow Rate 2 09/13 2020 Exam General appearance: normal appearance, alert, awake Eyes: normal exam, anicteric ENT: normal exam, mucous membranes moist Neck: normal inspection, non-tender, no carotid bruit, no JVD Cardiovascular: no JVD, heart tones distant, irregularly irregular Respiratory: diminished breath sounds (on the RIGHT) ABD: normal exam, non-distended, normal bowel sounds Genitourinary: normal voiding & quantity Extremities: normal exam Musculoskeletal: normal exam Skin: normal exam, intact, normal color Neuro: normal exam, alert, no deficit Plan: Problem List 1. Atrial fibrillation with rapid ventricular response 2. CHF (congestive heart failure) 3. Hypothyroidism 4. Rapid atrial fibrillation Plan: Agree with diuresis. Check echocardiogram. Consider restarting beta jenna. at 0825
--- NOTE | 2017-09-14 09:02 | CONSULT NOTE ---
Standard Demographics Patient Demo Date of Consultation: 09/14/17 Referring Provider: Luther Costello MD Reason for Consultation: A. fib with RVR PRIMARY DIAGNOSIS: ATRIAL FIBRILLATION Problem list Problem list: 1. Recurrent atrial fibrillation A. History of cardioversion in 2016 at . B. History of atrial fibrillation and hospitalization in March of this year with medical therapy recommended due to increased morbidity with repeat cardioversions. 2. History of RIGHT pleural effusion status post thoracentesis without evidence of cancer. 2016 at . 3. Rheumatoid arthritis 4. History of present illness: History of present illness: 57-year-old white female who presented to the emergency department with atrial fibrillation with rapid ventricular response. She has been treated for atrial fibrillation for several months at [facility] cardiology department, and apparently started with atrial fibrillation after a femur fracture 1 year ago when she was wheelchair-bound for several months. She follows with [facility] cardiology and pulmonary, after an episode one year ago when she was at [facility] rehabbing from the femur fracture and developed right- sided pleural effusion associated with a lung mass. This was drained and since that time she's followed with pulmonary, who is planning on seeing her in October and possibly releasing her from their care. Since that time she's been in atrial fibrillation, was cardioverted with several months of success but then went back into atrial fibrillation in the spring. Since that time she's been maintained on Eliquis and rate control. She is scheduled to see [facility] cardiology in October with a repeat echocardiogram at that point. 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 She has not been on a diuretic and has had a lot of swelling. She thinks this may have contributed to increased shortness of breath and yesterday evening noticed rapid heart rate, breathlessness and came to the urgent treatment Center, transferred over to the emergency department and found to be in rapid atrial fibrillation. Diuresed and admitted to the hospital for further evaluation and treatment. The above per Dr. Costello. Patient states she was hospitalized earlier this year for recurrent atrial fibrillation but some was placed on medical therapy. She has not followed up with us since then. Denies any chest pain during the current episode of atrial fibrillation, her symptoms include fatigue/shortness of breath/lower extremity edema. She currently is on IV diltiazem at 15 mg per hour and continues to have heart rates in the 120s to 140s. Blood pressures elevated. Past Medical History: General: Hypertension Yes CVA No Seizures No TB No COPD No Asthma No Diabetes No Angina No ME No Hyperlipidemia No Urinary No Cancer No Rheumatic H.D. No Ulcers No MRSA No GB Disease No Past Surgical HX: Previous Surgery?Y OVARIAN CYST FEMUR SURGERY Allergies Coded Allergies: No Known Allergies (03/01/16) Home medications: Active Scripts Digoxin (Digox) 0.125 MG PO DAILY #30 TAB Ref 1 Prov: 04/11/17 Discontinued Scripts Verapamil Hcl (Verapamil ER) 180 MG PO BID #60 TAB Ref 1 Prov: 04/11/17 DC: 09/17/17 0810 Reported Medications Apixaban (Eliquis) 5 MG PO DAILY #30 Atorvastatin Calcium 40 MG PO DAILY #30 ASPIRIN (Aspirin) 81 MG PO DAILY Current Medications: Current Medications Metoprolol Tartrate 5 MG ONCE ONE IV (UNV) Metoprolol Tartrate 50 MG BID PO (UNV) Furosemide 80 MG ONCE ONE IV (DC) Furosemide 40 MG ONCE ONE IV (DC) Sodium Chloride 100 ML .STK-MED ONE IV (DC) Diltiazem HCl 0 .STK-MED ONE IV (DC) Diltiazem HCl 0 .STK-MED ONE IV (DC) Sodium Chloride 100 ML .STK-MED ONE IV (DC) Diltiazem HCl 100 MG .Q6H40M IV Sodium Chloride 100 ML Influenza Virus Vaccine Quadrival 0.5 ML PRN PRN IM Nicotine 21 MG DAILYP PRN TD Sodium Chloride 10 ML PRN PRN IV Diltiazem HCl 0 .STK-MED ONE IV (DC) Diltiazem HCl 100 MG ONCE ONE IV (DC) Sodium Chloride 100 ML Diltiazem HCl 10 MG ONCE ONE IV (DC) Furosemide 40 MG ONCE ONE IV (DC) Furosemide 0 .STK-MED ONE .ROUTE (DC) Sodium Chloride 10 ML PRN PRN IV Immunization HX DT/Tetanus > 10 Years Flu 2015-FSN Pneumonia Refuses Other PT REQUESTS FLU SHOT TB Test in last year No Family history Family HX Family Hx Insignificant No Diabetes Yes CAD No Hypertension Yes Hyperlipidemia Yes Cancer Yes TB No Social Hx: Smoking HX Tobacco No Are you/the child exposed to second-hand smoke: No Alcohol Alcohol: No Hx of Drug Use Drug Use? No Review of systems: Constitutional weakness. Respiratory shortness of breath, SOB with excertion. Cardiovascular palpitations Gastrointestinal/Abdominal No no symptoms reported Genitourinary No: no symptoms reported. Musculoskeletal No: no symptoms reported. Neurological No: no symptoms reported. Exam: Admission Vital Signs: 1ST Vital Signs Result Date Time Pulse Ox 98 09/13 1506 B/P 140/110 09/13 1506 Temp 98.4 09/13 1506 Pulse 68 09/13 1506 Resp 18 09/13 1506 O2 Delivery ROOM AIR 09/13 1831 O2 Flow Rate 2 09/13 2020 Last Vital Signs: Vital Signs Result Date Time Pulse Ox 93 09/14 0500 B/P 120/51 09/14 0500 O2 Delivery ROOM AIR 09/14 0500 Temp 97.7 09/14 0500 Pulse 88 09/14 0500 Resp 20 09/14 0500 O2 Flow Rate 2 09/13 2020 Exam General appearance: alert, awake, no acute distress Neck: no carotid bruit, no JVD Cardiovascular: irregularly irregular, tachycardia Respiratory: clear to auscultation, decreased breath sounds at RIGHT base. ( No rales or wheezing noted.) Extremities: moves all Neuro: alert, intact, oriented Laboratory data: Laboratory Tests 09/14/17 0455: Sodium 141, Potassium 3.5, Chloride 105, Carbon Dioxide 27, BUN 17, Creatinine 1.0, Estimated Creat Clear 130, Estimated GFR (MDRD) 57 L, Glucose 116 H, Calcium 8.5 09/13/17 1524: Sodium 140, Potassium 4.0, Chloride 107, Carbon Dioxide 22, BUN 17, Creatinine 1.1 H, Estimated Creat Clear 103, Estimated GFR (MDRD) 51 L, Glucose 177 H, Calcium 8.9, Total Bilirubin 0.6, AST 32, ALT 51, Alkaline Phosphatase 98, Creatine Kinase 72, CK-MB (CK-2) Rel Index 1.0, CK and CKMB Interp 0.7, Troponin I < 0.02, B-Natriuretic Peptide 846 H, Total Protein 7.2, Albumin 3.5, Globulin 3.7 H, Albumin/Globulin Ratio 0.9 L, WBC 12.1 H, RBC 4.44, Hgb 12.8, Hct 40.7 , MCV 91.8, RDW 14.9, Plt Count 313, MPV 8.6, Gran % 78.4, Gran # 9.5 H, Lymphocytes % 13.7, Monocytes % 6.4, Eosinophils % 1.2, Basophils % 0.3, Lymphocytes # 1.7, Monocytes # 0.8, Eosinophils # 0.2, Basophils # 0.0, PUBS MCHC 31.5 L, MCH 28.9, Digoxin < 0.20 L Plan: Assessment: 1. Atrial fibrillation with a rapid ventricular response despite verapamil and digoxin home medications. Patient is already on Eliquis. We'll add IV metoprolol and by mouth metoprolol. Echocardiogram has been ordered. Admission electrocardiogram is atrial fibrillation with a rapid ventricular response, RIGHT axis deviation with poor R-wave progression anteriorly. 2. Congestive heart failure with elevated BNP and abnormal chest x-ray suggestive of congestive heart failure. Lasix has been ordered and patient is diuresing well. 3. Hypertension 4. Obesity 5. History of rheumatoid arthritis with RIGHT pleural effusion status post thoracentesis in 2016 and arthritic changes of the hands. Recommendations: Discussed with Dr. Bowman, continue attempt at rate control with addition of metoprolol. Await echo results. Continue Eliquis. at 1001
[2017-09-15] VITALS (17 sets, daily range): BP systolic 96–144; BP diastolic 50–87
--- NOTE | 2017-09-15 08:10 | ACUTE CARE PROGRESS NOTE (QUA) ---
See Addendum Progress Notes Subjective Date 09/15/17 Time 0806 Note 57 yo WF in chair in NAD. Continues to diurese and feel better. Objective Findings Last VS-Temp:98.4 B/P:116/74 Pulse:53 Resp:16 SaO2:96 ROOM AIR Last weight lbs:294 oz:4 K.47 Method:Bed Scales Exam General appearance: alert, awake, no acute distress Cardiovascular: irregular rate & rhythm Respiratory: clear to auscultation Extremities: moves all, Improved edema Neuro: alert, intact, oriented Reviewed: medications, vital signs, lab results Assessment/Plan Problem List 1. Atrial fibrillation with rapid ventricular response 2. CHF (congestive heart failure) Qualifiers: Congestive heart failure type: unspecified congestive heart failure type Congestive heart failure chronicity: acute Qualified Code: I50.9 - Heart failure , unspecified 3. Hypothyroidism 4. Rapid atrial fibrillation Patient condition Improving Plan: Switch IV diltiazem to cardizem PO. Continue beta jenna. Echo results pending at this time. This inpt stay is expected to cross 2 MNs from start of care Yes at 0810 at 0846
--- NOTE | 2017-09-15 09:00 | ACUTE CARE PROGRESS NOTE (QUA) ---
Progress Notes Subjective Date 09/15/17 Time 0859 Note Overall patient feels better, has diuresed about 5 L since her arrival. Preliminary echo report reviewed. Official report pending. Significant EF compromise and calcified aortic valve with severe tricuspid regurgitation on preliminary report. Patient this morning is pleasant, irregular rhythm but good rate control, lungs are clear, edema is better. Objective Findings Last VS-Temp:98.4 B/P:116/74 Pulse:53 Resp:16 SaO2:96 ROOM AIR Last weight lbs:294 oz:4 K.47 Method:Bed Scales Assessment/Plan Problem List 1. Atrial fibrillation with rapid ventricular response 2. CHF (congestive heart failure) Qualifiers: Congestive heart failure type: unspecified congestive heart failure type Congestive heart failure chronicity: acute Qualified Code: I50.9 - Heart failure , unspecified 3. Hypothyroidism 4. Rapid atrial fibrillation Patient condition Improving Plan: plan will be to change beta jenna, add PAOLA inhibitor, stop calcium channel jenna given her suppressed ejection fraction. Probable discharge home this afternoon with diuretics and changed cardiac medications. Close follow-up in our office. This inpt stay is expected to cross 2 MNs from start of care Yes at 0900
--- NOTE | 2017-09-15 16:18 | RADIOLOGY REPORT PS360 ---
PROCEDURE: 2-D M-mode and color Doppler study INDICATIONS FOR THE TEST: Chest pain COPD Heart Murmur Tobacco Smoking Palpitations Fatigue Syncope Edema+ Hypertension+Diabetes Mellitus Rheumatic Fever SOB+JAIMES+Obesity+Hyperlipidemia+ Family History HD Additional History Afib, CHF PATIENT INFORMATION HEIGHT:63 WEIGHT:294 GENDER: Female B/P: 140/110 2-D/M-MODE INTERPRETATION: 2-D MEASUREMENTS OBSERVED VALUES IN CMS Right Ventricular Dimension (RVDd) 3.0 Interventricular Septum (Thickness)(IVsd) 1.2 Left Ventricular Internal Dimensions(LVIDd) 4.9 Left Ventricular Posterior Wall (Thickness)(LVPWd) 1.2 Aortic Root 2.2 Aortic Cusp Separation 2.2 Left Atrial Dimensions (LAD) 4.2 2D 1. Left atrium is moderately enlarged, left ventricle is normal size, there is mild concentric left ventricular hypertrophy, visually estimated ejection fraction approximately 30%, left ventricle is globally hypokinetic. 2. The right atrium is moderately enlarged, right ventricle is moderately dilated with normal contractility. 3. The aortic valve is thickened and calcified leaflet continue to display mobility. 4. The mitral valve has mitral annular calcification, leaflets are minimally thickened, there is no mitral stenosis. 5. The tricuspid valve is minimally thickened. 6. The pulmonic valve is poorly visualized. 7. There is small pericardial effusion noted DOPPLER INTERROGATION: Doppler interrogation of the aortic, mitral and tricuspid valvular presence of trace aortic, moderate mitral and severe tricuspid regurgitation, calculated right ventricular systolic pressure is 47 mmHg consistent with moderate pulmonary hypertension. CONCLUSION: 1. Moderately enlarged left atrium, normal left ventricular size, mild concentric left ventricular hypertrophy, severely reduced left ventricular systolic function, visually estimated ejection fraction 30%, left ventricle is globally hypokinetic. 2. Moderately enlarged right atrium and right ventricle, contractility of the right ventricle is normal. 3. Trace aortic, moderate mitral and severe tricuspid regurgitation, calculated right ventricular systolic pressure 47 mmHg consistent with moderate pulmonary hypertension 4. Small circumferential pericardial effusion noted.
[2017-09-16] VITALS (21 sets, daily range): BP systolic 93–183; BP diastolic 56–99
[2017-09-16 05:31] LABS: HEMOGLOBIN 12.4 g/dL (12.2-16.2); LYMPH # 1.5 K/mm3 (0.7-4.5); LYMPH % 16.8 % (10-50.0)
--- NOTE | 2017-09-16 08:14 | ACUTE CARE PROGRESS NOTE (QUA) ---
Progress Notes Subjective Date 09/16/17 Time 0813 Note Patient overall feels well. Vital signs are acceptable. She is pleasant, alert. Heart rate in the low 90s in atrial fibrillation. Blood pressure acceptable. Objective Findings Last VS-Temp:97.4 B/P:134/67 Pulse:79 Resp:16 SaO2:96 ROOM AIR Last weight lbs:294 oz:0 K.356 Method:Bed Scales Assessment/Plan Problem List 1. Atrial fibrillation with rapid ventricular response 2. CHF (congestive heart failure) Qualifiers: Congestive heart failure type: unspecified congestive heart failure type Congestive heart failure chronicity: acute Qualified Code: I50.9 - Heart failure , unspecified 3. Hypothyroidism 4. Rapid atrial fibrillation 5. Aortic valve stenosis Patient condition Stable, given echo results patient will be taken for LEFT and RIGHT heart catheterization today to define cardiac anatomy, define degree of aortic stenosis and define best medication for patients rhythm control/ congestive heart failure treatment. This inpt stay is expected to cross 2 MNs from start of care Yes at 0814
--- NOTE | 2017-09-16 12:07 | RADIOLOGY REPORT PS360 ---
CARDIAC CATHETERIZATION DATE OF CATHETERIZATION:09/16/2017 11:22 AM PROCEDURES: 1. Right heart catheterization 2. Left heart catheterization 3. Left ventriculogram 4. Selective coronary angiogram INDICATION FOR TEST: 1. Systolic congestive heart failure ejection fraction 30% 2. Pulmonary hypertension 3. Atrial fibrillation 4. Cardiomyopathy Informed consent was obtained prior to the procedure. COMPLICATIONS: None ESTIMATED BLOOD LOSS: Less than 10 ml. TECHNIQUE: One percent lidocaine used to anesthetize the right anterior aspect of the neck and the right anterior aspect of the right wrist. The right internal jugular vein was accessed via the Seldinger technique and a 7 Trin[place] sheath was placed in the right internal jugular vein. A 6 Trin[place] hydrophilic sheath was then placed in the right radial artery via the Seldinger technique and an arterial cocktail using verapamil nitroglycerin and heparin was administered intra-arterially. A trap catheter was used to perform left heart catheterization left ventriculogram and selective coronary angiography. Following this a [place] catheter was floated into the pulmonary arteries were right heart catheterization was performed via the right internal jugular vein access. At the end of the procedure the arterial sheath was removed good hemostasis was achieved using TR banding patient was transferred to the postop holding area in stable condition for venous sheath removal ANGIOGRAPHIC RESULTS: 1. The left main artery normal 2. The left anterior descending artery has mild proximal 10% nonflow limiting stenoses with mild luminal irregularities in the mid segment as well 3. The circumflex artery is non dominant and has mild nonflow limiting 10-20% atheromatous plaque 4. The right coronary artery is dominant and has mid vessel 20 and 30% nonflow limiting stenoses 5. The MACIEL ventriculogram reveals moderate to severe left ventricular dilatation with severely reduced ejection fraction estimated at 25-30% The left ventricular end-diastolic pressure severely elevated at 30 mmHg HEMODYNAMICS: Right atrial pressure is 20 mm Hg. Pulmonary arterial pressure is 45/35 mm Hg. Pulmonary artery occlusion pressure is 30 mm Hg. SATURATIONS: RA is 71 %. PA is 71 %. IMPRESSION: 1. Mild nonocclusive coronary artery disease 2. Moderate pulmonary hypertension 3. Severely elevated LVEDP consistent with decompensated left-sided congestive heart failure 4. Severely reduced ejection fraction at 25-30%, dilated cardiomyopathy nonischemic 5. Biventricular decompensated congestive heart failure as evidenced by pulmonary artery occlusion pressure of 30 and right atrial pressure of 20 PLAN: 1. Standard therapy for systolic congestive heart failure 2. Rate control atrial fibrillation preferably with carvedilol or bisoprolol combined with digoxin 3. Patient requires significant diuresis. I would recommend diuresing patient until we see a significant increase in her creatinine. 4. Patient should be considered for a lifevest is a candidate 5. Standard systolic heart therapy for 3 months and then reevaluate ejection fraction with echocardiogram to determine if patient is a candidate for a permanent AICD. 6. Anticoagulate for atrial fibrillation 7. Standard therapy for coronary artery disease with daily aspirin and statin therapy
--- NOTE | 2017-09-16 14:13 | ACUTE CARE PROGRESS NOTE (QUA) ---
Progress Notes Subjective Date 09/16/17 Time 1351 Note 57 yo WF in bed post cardiac cath in NAD. Results reviewed with patient and all questions answered. Recommend LifeVest due to EF <35%. She understands and agrees to wear it. Objective Findings Last VS-Temp:97.4 B/P:113/67 Pulse:92 Resp:18 SaO2:90 ROOM AIR Last weight lbs:294 oz:0 K.356 Method:Bed Scales Exam General appearance: alert, awake, no acute distress Cardiovascular: irregularly irregular Respiratory: decreased breath sounds right base. No wheezing. Extremities: moves all, edema Neuro: alert, intact, oriented Reviewed: medications, vital signs, lab results Assessment/Plan Problem List 1. Atrial fibrillation with rapid ventricular response Assessment/Plan: resume eliquis. Rate controlled with coreg and digoxin currently. 2. CHF (congestive heart failure) Assessment/Plan: Will switch lisinopril to entresto due to better cardiovascular outcomes in CHF patients. Qualifiers: Congestive heart failure type: unspecified congestive heart failure type Congestive heart failure chronicity: acute Qualified Code: I50.9 - Heart failure , unspecified 3. Hypothyroidism 4. Rapid atrial fibrillation 5. Aortic valve stenosis Assessment/Plan: Mild by echo. 6. Nonischemic dilated cardiomyopathy Assessment/Plan: Therapy to include coreg, Entresto, digoxin, spironolactone and +/- lasix with careful renal status monitoring. LifeVest to be placed prior to discharge. 7. Pulmonary hypertension due to left ventricular systolic dysfunction Patient condition Stable Plan: As above. Anticipate discharge home after LifeVest fitting. Follow up in our office next week. This inpt stay is expected to cross 2 MNs from start of care Yes at 1413
[2017-09-17] VITALS (9 sets, daily range): BP systolic 103–154; BP diastolic 62–81
[2017-09-17] MEDS ORDERED: BISOPROLOL 5MG T5 MG PO (08:10)
[2017-09-17] MEDS ORDERED: ALDACTONE 25MG25 MG PO (08:10)
[2017-09-17] MEDS ORDERED: LASIX 40MG. TAB40 MG PO (08:11)
[2017-09-17] MEDS ORDERED: ENTRESTO 24 MG1 EACH PO (08:11)
--- NOTE | 2017-09-17 08:20 | DISCHARGE SUMMARY STANDARD ---
Demographics Admit date: 09/13/17 Discharge date: 09/17/17 History of present illness History of present illness 57-year-old white female who presented to the emergency department with atrial fibrillation with rapid ventricular response. She has been treated for atrial fibrillation for several months at [facility] cardiology department, and apparently started with atrial fibrillation after a femur fracture 1 year ago when she was wheelchair-bound for several months. She follows with [facility] cardiology and pulmonary, after an episode one year ago when she was at [facility] rehabbing from the femur fracture and developed right- sided pleural effusion associated with a lung mass. This was drained and since that time she's followed with pulmonary, who is planning on seeing her in October and possibly releasing her from their care. Since that time she's been in atrial fibrillation, was cardioverted with several months of success but then went back into atrial fibrillation in the spring. Since that time she's been maintained on Eliquis and rate control. She is scheduled to see [facility] cardiology in October with a repeat echocardiogram at that point. She's been very busy over the past couple of weeks with her [employer] business and has been on her feet quite a bit. She has not been on a diuretic and has had a lot of swelling. She thinks this may have contributed to increased shortness of breath and yesterday evening noticed rapid heart rate, breathlessness and came to the urgent treatment Center, transferred over to the emergency department and found to be in rapid atrial fibrillation. Diuresed and admitted to the hospital for further evaluation and treatment. Below note per initial cardiology evaluation; Patient states she was hospitalized earlier this year for recurrent atrial fibrillation but some was placed on medical therapy. She has not followed up with us since then. Denies any chest pain during the current episode of atrial relation, her symptoms include fatigue/shortness of breath/lower extremity edema. She currently is on IV diltiazem and 15 mg per hour and continues to have heart rates in the 120s to 140s. Blood pressures elevated. Hospital Course Hospital Course: Patient was admitted, diuresed, felt much better after significant diuresis. Echocardiogram was done which revealed significant ejection fraction depression and aortic valve calcification and patient was taken to catheterization lab for RIGHT and LEFT heart catheterization which revealed elevated RIGHT ventricular pressures indicative of more diuresis need and ongoing cardiomyopathy but no evidence of ischemic disease. She was started on Entresto and felt well with this, as well as beta-blockade and continued digoxin for rate control. She was continued on her previously prescribed oral anticoagulation agent. She had another good diuresis after these medications were started and this morning feels well. She will be fitted with a LifeVest because of her low ejection fraction and high likelihood of dysrhythmia, she will be discharged home today after the LifeVest is fitted for close follow-up. Please see discharge summary for medication list. Exam today reveals that she is alert, pleasant, oriented. Irregular rate in the low 80s. Blood pressure normal, abdomen soft, no neurologic deficits. Edema is almost nonexistent her ankles. Discharge diagnoses Problem List 1. Atrial fibrillation with rapid ventricular response 2. CHF (congestive heart failure) 3. Hypothyroidism 4. Rapid atrial fibrillation 5. Aortic valve stenosis 6. Nonischemic dilated cardiomyopathy 7. Pulmonary hypertension due to left ventricular systolic dysfunction Medications Medications: Discharge meds are as noted. Follow up Follow up in office in: 6 DAYS with: Luther Costello MD at 0820
== END 2017-09-17 11:45 | disposition home or self-care (01) | DRG 287 ==
LOC: ER 14:59 → 2ND 16:19 → ER 16:19 → 2ND 18:04
PROVIDERS: Emergency Medicine; Internal Medicine; Internal Medicine Adolescent Medicine
PROC: B2151ZZ Fluoroscopy of Left Heart using Low Osmolar Contrast (ICD-10-PCS; principal; 2017-09-16 09:45)
PROC: 4A023N8 Measurement of Cardiac Sampling and Pressure, Bilateral, Percutaneous Approach (ICD-10-PCS; principal; 2017-09-16 09:45)
PROC: B2111ZZ Fluoroscopy of Multiple Coronary Arteries using Low Osmolar Contrast (ICD-10-PCS; principal; 2017-09-16 09:45)
DX: I25.10 Atherosclerotic heart disease of native coronary artery without angina pectoris (principal); I27.20 Pulmonary hypertension, unspecified; I42.9 Cardiomyopathy, unspecified; I50.20 Unspecified systolic (congestive) heart failure; I48.91 Unspecified atrial fibrillation; I35.0 Nonrheumatic aortic (valve) stenosis
CPT/HCPCS: C1725; C1769; C1894; J1644; Q9967

== ENCOUNTER → 2017-09-26 | Outpatient (CLI) | payer MEDICAID ==
[~2017-09-26] MED LIST changes: +ALDACTONE 25MG25 MG PO; +BISOPROLOL 5MG T5 MG PO; +ENTRESTO 24 MG1 EACH PO; +LASIX 40MG. TAB40 MG PO
== END ==
LOC: LAB 10:01
DX: I48.91 Unspecified atrial fibrillation (principal); I42.0 Dilated cardiomyopathy; I50.9 Heart failure, unspecified; E66.9 Obesity, unspecified; R94.31 Abnormal electrocardiogram [ECG] [EKG]; G47.33 Obstructive sleep apnea (adult) (pediatric)

== ENCOUNTER → 2017-09-29 | Outpatient (CLI) | payer MEDICAID | LOC: SL 20:10 | DX: G47.30 Sleep apnea, unspecified (principal); I10 Essential (primary) hypertension; I48.91 Unspecified atrial fibrillation; E66.9 Obesity, unspecified ==

== ENCOUNTER → 2017-09-30 | Day surgery (SDC) | payer MEDICAID ==
[~2017-09-30] VITALS: Ht 160 cm; Wt 117.9 kg
--- NOTE | 2017-09-30 14:25 | Procedure Note ---
Electrocardioversion Date of procedure: 09/30/17 Time of procedure: 1330 Surgeon: Peter Velázquez' Diagnosis: A. FIB Procedure Summary: PATIENT WAS BROUGHT INTO THE CARDIAC BOBBIN CLEANER HOLDING AREA IN HEMODYNAMICALLY STABLE CONDITION, AFTER THE INFORMED CONSENT, GENERAL ANESTHESIA WAS PROVIDED BY ANESTHESIOLOGIST, SUBSEQUENTLY PATIENT WAS GIVEN 200 j OF SYNCHRONIZED dc CURRENT WHICH RESTORED A SINUS RHYTHM, PATIENT TOLD THE PROCEDURE WELL. Complications: None Conclusion: SUCCESSFUL ELECTRICAL dc CARDIOVERSION TO RESTORE SINUS RHYTHM at 7914
--- NOTE | 2017-09-30 14:25 | Procedure Note ---
Electrocardioversion Date of procedure: 09/30/17 Time of procedure: 1330 Surgeon: Peter Velázquez' Diagnosis: A. FIB Procedure Summary: PATIENT WAS BROUGHT INTO THE CARDIAC OUTSIDE CUTTER HAND HOLDING AREA IN HEMODYNAMICALLY STABLE CONDITION, AFTER THE INFORMED CONSENT, GENERAL ANESTHESIA WAS PROVIDED BY ANESTHESIOLOGIST, SUBSEQUENTLY PATIENT WAS GIVEN 200 j OF SYNCHRONIZED dc CURRENT WHICH RESTORED A SINUS RHYTHM, PATIENT TOLD THE PROCEDURE WELL. Complications: None Conclusion: SUCCESSFUL ELECTRICAL dc CARDIOVERSION TO RESTORE SINUS RHYTHM at 5263
== END ==
LOC: CATHLAB 12:56
PROVIDERS: Internal Medicine Cardiovascular Disease
PROC: 5A2204Z Restoration of Cardiac Rhythm, Single (ICD-10-PCS; principal; 2017-09-30 14:00)
DX: I48.91 Unspecified atrial fibrillation (principal)